=== PATIENT | female | born 1965 | race Caucasian/White ===

== ENCOUNTER → 2017-10-06 | Outpatient (CLI) | payer OTHER, SELFPAY | PROVIDERS: Visit Provider Internal Medicine | DX: I11.9 Hypertensive heart disease without heart failure (principal); E78.5 Hyperlipidemia, unspecified | CPT/HCPCS: 36415; 80061; 80076 ==

== ENCOUNTER → 2018-04-11 08:48 | Outpatient (CLI) | payer OTHER, SELFPAY ==
[2018-04-11 13:56] LABS: Alanine Aminotransferase 19 U/L (12-78); Albumin Level 3.3 gm/dL (3.4-5.0); Alkaline Phosphatase 84 U/L (46-116); Aspartate Amino Transferase 13 U/L (15-37); Bilirubin,Direct 0.1 mg/dL (0.0-0.2); Bilirubin,Indirect 0.2 mg/dL (0.0-0.9); Bilirubin,Total 0.3 mg/dL (0.2-1.0); Chol/HDL Ratio 3.3 (1-3.5); Cholesterol 131 mg/dL (140-200); HDL Cholesterol 40 mg/dL (29-89); LDL Cholesterol 76 mg/dL (0-130); Total Protein,Serum 6.2 gm/dL (6.4-8.2); Triglycerides 73 mg/dL (30-200); VLDL Cholesterol 15 mg/dL (0-40)
== END ==
PROVIDERS: Visit Provider Internal Medicine
DX: I25.10 Atherosclerotic heart disease of native coronary artery without angina pectoris (principal); I10 Essential (primary) hypertension; E78.5 Hyperlipidemia, unspecified; Z72.0 Tobacco use
CPT/HCPCS: 36415; 80061; 80076

== ENCOUNTER → 2018-06-20 09:43 | Outpatient (CLI) | payer OTHER, SELFPAY ==
[2018-06-20 09:59] LABS: Adenovirus,PCR Not Detected (NotDetected); Bordetella Pertussis Not Detected (NotDetected); Chlamydophila Pneumoniae, PCR Not Detected (NotDetected); Coronavirus 229E Not Detected (NotDetected); Coronavirus NL63 Not Detected (NotDetected); Coronavirus OC43 Not Detected (NotDetected); Coronovirus HKU1,PCR Not Detected (NotDetected); Human Metapneumovirus Not Detected (NotDetected); Influenza A, PCR Not Detected (NotDetected); Influenza AH1, 2009 Not Detected (NotDetected); Influenza AH1, PCR Not Detected (NotDetected); Influenza AH3,PCR Not Detected (NotDetected); Influenza B, PCR Not Detected (NotDetected); Mycoplasma Pneumoniae, PCR Not Detected (NotDected); Parainfluenza 1, PCR Not Detected (NotDetected); Parainfluenza 2, PCR Not Detected (NotDetected); Parainfluenza 3, PCR Not Detected (NotDetected); Parainfluenza 4, PCR Not Detected (NotDetected); Respiratory Syncytial Virus Not Detected (NotDetected); Rhinovirus/Enterovirus Not Detected (NotDetected)
--- NOTE | 2018-06-20 10:15 | XR_ITS ---
XR chest 2V HISTORY: ITS.REASON: ACUTE BRONCHITIS ORDERING PHYSICIAN: Gracie Nweman PATIENT AGE: 53 years COMPARISON: 12/28/2015 FINDINGS: The cardiomediastinal silhouette and pulmonary vascularity are within normal limits. Coronary artery stent is present . There is some hyperinflation with attenuation of the peripheral pulmonary vessels suggesting small airway disease such as bronchitis asthma or COPD. The lungs are clear without infiltrates, suspicious nodules, or pleural effusions. No acute bony abnormalities. IMPRESSION: 1. No acute infiltrate. 2. Possible small airway disease
[2018-06-20 10:25] LABS: Basophils # 0.1 K/mm3 (0-0.2); Basophils % 0.5 % (0.1-2.0); Eosinophils # 0.1 K/mm3 (0.0-0.4); Eosinophils % 0.8 % (0.1-12.0); Hematocrit 38.2 % (37.0-47.0); Lymphocytes # 2.1 K/mm3 (0.7-4.5); Mean Corpuscular Hemoglobin 32.2 pg (27.0-31.2); Mean Corpuscular Volume 94.5 fl (81-99); Monocytes # 0.5 K/mm3 (0.1-1.0); Neutrophils % 76.7 % (37.0-80.0); Platelet Count 189 K/mm3 (142-424); Red Blood Count 4.04 M/mm3 (4.20-5.40); Red Cell Distribution Width 13.4 % (11.5-17.5); White Blood Count 11.7 K/mm3 (4.8-10.8)
[2018-06-20 10:40] LABS: Hemoglobin A1C 5.8 % (0.0-7.0)
[2018-06-20 11:02] LABS: Alanine Aminotransferase 18 U/L (12-78); Albumin Level 3.5 gm/dL (3.4-5.0); Albumin/Globulin Ratio 1.1 (1.1-1.8); Alkaline Phosphatase 87 U/L (46-116); Anion Gap 12.9 mEq/L (5-15); Aspartate Amino Transferase 10 U/L (15-37); Bilirubin,Total 0.7 mg/dL (0.2-1.0); Blood Urea Nitrogen 16 mg/dL (7-18); Carbon Dioxide 27 mmol/L (21.0-32.0); Chloride 104 mmol/L (98-107); Creatinine,Serum 1.24 mg/dL (0.55-1.02); Estimated Glomerular Filt Rate 45 ml/min (>60); GFR (African American) 55 ML/MIN (>60); Globulin 3.1 gm/dl (1.3-3.2); Glucose 99 mg/dL (74-106); Potassium 3.9 mmoL/L (3.5-5.1); Sodium 140 mmol/L (136-145); Thyroid Stimulating Hormone 0.46 uIU/ml (0.358-3.740); Total Protein,Serum 6.6 gm/dL (6.4-8.2)
[2018-06-20 11:12] LABS: D-Dimer 758 ng/mL (0-400)
[2018-06-20 12:08] LABS: Chol/HDL Ratio 3.3 (1-3.5); Cholesterol 130 mg/dL (140-200); HDL Cholesterol 40 mg/dL (29-89); LDL Cholesterol 68 mg/dL (0-130); Triglycerides 111 mg/dL (30-200); VLDL Cholesterol 22 mg/dL (0-40)
[2018-06-21 12:42] LABS: Vitamin B12 348 pg/mL (232-1245)
[2018-06-22 07:37] LABS: EBV Ab VCA, IgG >600.0 U/mL (0.0-17.9); EBV Ab VCA, IgM <36.0 U/mL (0.0-35.9); EBV Nuclear Antigen Ab, IgG 24.6 U/mL (0.0-17.9); Epstein-Barr Virus Early Ag Ab 13.4 U/mL (0.0-8.9)
== END ==
PROVIDERS: PCP Physician Assistant; Visit Provider Nurse Practitioner Family
DX: R05 Cough (principal); J20.9 Acute bronchitis, unspecified; R53.83 Other fatigue; I25.10 Atherosclerotic heart disease of native coronary artery without angina pectoris
CPT/HCPCS: 36415; 71046; 80053; 80061; 82607; 83036; 83880; 83930; 84443; 84588; 85025; 85378; 86663; 86664; 86665; 87486; 87581; 87633; 87798

== ENCOUNTER → 2018-06-21 08:53 | Outpatient (CLI) | payer OTHER, SELFPAY ==
[2018-06-21 13:38] LABS: Occult Blood,Stool Negative (Negative)
[2018-06-23 07:04] LABS: C difficile Toxins AB, EIA Negative (Negative)
== END ==
LOC: LAB 08:54 → LAB.CARL 10:22
PROVIDERS: PCP Nurse Practitioner Family; Visit Provider Nurse Practitioner Family
DX: R19.7 Diarrhea, unspecified (principal)
CPT/HCPCS: 82272; 87045; 87177; 87205; 87324; G0328

== ENCOUNTER 2018-06-24 14:16 | Inpatient (IN) ==
[2018-06-24 14:37] LABS: Basophils % 0.4 % (0.1-2.0); Eosinophils % 0.4 % (0.1-12.0); Hematocrit 35.8 % (37.0-47.0); Hemoglobin 13.5 g/dL (12.2-16.2); Lymphocytes % 9.7 K/mm3 (10-50); Mean Corpuscular HGB Conc 37.7 g/dL (31.8-35.4); Mean Corpuscular Hemoglobin 34.8 pg (27.0-31.2); Mean Corpuscular Volume 92.3 fl (81-99); Mean Platelet Volume 10.4 fl (7.4-10.4); Monocytes # 0.6 K/mm3 (0.1-1.0); Monocytes % 5.7 % (1.7-9.3); Neutrophils % 83.9 % (37.0-80.0); Platelet Count 161 K/mm3 (142-424); Red Blood Count 3.87 M/mm3 (4.20-5.40); Red Cell Distribution Width 13.2 % (11.5-17.5); White Blood Count 10.8 K/mm3 (4.8-10.8)
[2018-06-24 14:51] LABS: Alanine Aminotransferase 16 U/L (12-78); Albumin Level 3.1 gm/dL (3.4-5.0); Albumin/Globulin Ratio 0.8 (1.1-1.8); Alkaline Phosphatase 73 U/L (46-116); Anion Gap 15.4 mEq/L (5-15); Aspartate Amino Transferase 12 U/L (15-37); Bilirubin,Total 0.4 mg/dL (0.2-1.0); Blood Urea Nitrogen 42 mg/dL (7-18); Calcium 8.4 mg/dL (8.5-10.1); Carbon Dioxide 25 mmol/L (21.0-32.0); Chloride 97 mmol/L (98-107); Glucose 102 mg/dL (74-106); Sodium 135 mmol/L (136-145); Total Protein,Serum 7.1 gm/dL (6.4-8.2)
[2018-06-24 14:55] LABS: Potassium 2.4 mmoL/L (3.5-5.1)
[2018-06-24 15:02] LABS: Creatine Kinase 47 U/L (26-192)
[2018-06-24 15:09] LABS: Microscopic, Urine URINE MICROSCOPIC (MICROSCOPIC)
[2018-06-24 15:13] LABS: Appearance,Urine CLEAR (Clear); Blood, Urine TRACE-L (Negative); Color,Urine YELLOW (Yellow); Glucose,Urine (UA) Negative (Negative); Ketones,Urine Negative (Negative); Leukocyte Esterase,Urine Negative (Negative); Protein,Urine Negative (Negative); Specific Gravity, Urine >= 1.030 (1.005-1.030); Urobilinogen,Urine 0.2 EU/dl (0.2)
[2018-06-24 15:19] LABS: Bilirubin,Urine Negative (Negative)
[2018-06-24 15:34] LABS: Amorphous Sediment,Urine 2+ /lpf; Bacteria,Urine 3+ /lpf
--- NOTE | 2018-06-24 17:44 | Emergency Department Note ---
ED Disposition Clinical Impression: Hypokalemia Acute renal failure Qualifiers: Acute renal failure type: unspecified Qualified Code(s): N17.9 - Acute kidney failure, unspecified Disposition: Admitted As Inpatient Condition on Discharge: Fair Time of Disposition: 17:45 - Critical Care Critical Care Time: No Attestation: On 06/24/18, the high probability of a clinically significant, sudden or life threatening deterioration of the following system(s) required my full and direct attention, intervention and personal management. The time I documented below is in addition to time spent performing reported procedures but includes the following listed in this critical care notation. Medical Decision Making - Medical Records Medical records reviewed: Yes: I reviewed the patient's medical records. - Ramiro Inquiry Pt receiving controlled substance: No Ramiro was queried for this patient: No Vital Signs: 06/24/18 14:23 06/24/18 14:26 06/24/18 14:31 Temperature 99.5 F Temperature Source Oral Pulse Rate [Left Radial] 67 Respiratory Rate 16 Blood Pressure [Right Arm] 79/47 81/53 82/48 Blood Pressure Mean [Right Arm] 57 62 59 Blood Pressure Source [Right Arm] Automatic Cuff Blood Pressure Position [Right Arm] Sitting 02 Sat by Pulse Oximetry 94 L Oxygen Delivery Method Room Air Oxygen Flow Rate (LPM) 06/24/18 14:38 06/24/18 14:48 06/24/18 15:06 Temperature Temperature Source Pulse Rate [Left Radial] 66 64 Respiratory Rate 18 Blood Pressure [Right Arm] 86/53 95/35 95/35 Blood Pressure Mean [Right Arm] 64 55 55 Blood Pressure Source [Right Arm] Automatic Cuff Automatic Cuff Blood Pressure Position [Right Arm] Sitting Sitting Sitting 02 Sat by Pulse Oximetry 92 L Oxygen Delivery Method Nasal Cannula Oxygen Flow Rate (LPM) 06/24/18 15:24 06/24/18 15:30 06/24/18 16:00 Temperature Temperature Source Pulse Rate [Left Radial] 66 63 Respiratory Rate 18 20 Blood Pressure [Right Arm] 113/50 105/52 83/45 Blood Pressure Mean [Right Arm] 71 69 57 Blood Pressure Source [Right Arm] Automatic Cuff Automatic Cuff Automatic Cuff Blood Pressure Position [Right Arm] Sitting Sitting Sitting 02 Sat by Pulse Oximetry 100 100 Oxygen Delivery Method Nasal Cannula Nasal Cannula Oxygen Flow Rate (LPM) 3 06/24/18 16:25 06/24/18 16:30 06/24/18 16:58 Temperature Temperature Source Pulse Rate [Left Radial] 71 67 Respiratory Rate 19 Blood Pressure [Right Arm] 94/52 81/40 100/53 Blood Pressure Mean [Right Arm] 66 53 68 Blood Pressure Source [Right Arm] Automatic Cuff Automatic Cuff Blood Pressure Position [Right Arm] Supine Sitting 02 Sat by Pulse Oximetry 100 100 Oxygen Delivery Method Room Air Nasal Cannula Oxygen Flow Rate (LPM) 3 - Lab Data Lab results reviewed: Yes: I reviewed the patient's lab results. Lab Results 06/24/18 14:22: WBC 10.8, RBC 3.87 L, Hgb 13.5, Hct 35.8 L, MCV 92.3, MCH 34.8 H , MCHC 37.7 H, RDW 13.2, Plt Count 161, MPV 10.4, Neut % (Auto) 83.9 H, Lymph % (Auto) 9.7 L, [place] % (Auto) 5.7, Eos % (Auto) 0.4, Baso % (Auto) 0.4, Neut # (Auto) 9.0 H, Lymph # (Auto) 1.0, [place] # (Auto) 0.6, Eos # (Auto) 0.0, Baso # (Auto) 0.0 06/24/18 14:22: Sodium 135 L, Potassium 2.4 L*, Chloride 97 L, Carbon Dioxide 25, Anion Gap 15.4 H, BUN 42 H, Creatinine 4.02 H, Estimated Creat Clear 19, Estimated GFR 12 L*, Est GFR ( Amer) 14 L*, Glucose 102, Calcium 8.4 L, Total Bilirubin 0.4, AST 12 L, ALT 16, Alkaline Phosphatase 73, Troponin I < 0.02, Total Protein 7.1, Albumin 3.1 L, Globulin 4.0 H, Albumin/Globulin Ratio 0.8 L 06/24/18 14:22: Lactate 1.5 06/24/18 14:22: Total Creatine Kinase 47, CK-MB (CK-2) 0.7, CK-MB (CK-2) Rel Index 1.5, Troponin I < 0.02 06/24/18 15:01: Urine Color Yellow, Urine Appearance Clear, Urine pH 5.0, Ur Specific [place] >= 1.030, Urine Protein Negative, Urine Glucose (UA) Negative, Urine Ketones Negative, Urine Blood Trace-l, Urine Nitrate Negative, Urine Bilirubin Negative, Urine Urobilinogen 0.2, Ur Leukocyte Esterase Negative, Urine RBC None, Urine WBC 3-5, Ur Squamous Epith Cells 3-5, Amorphous Sediment 2+, Urine Bacteria 3+, Hyaline Casts 10-20 Result diagrams: 06/24/18 14:22 06/24/18 14:22 Orders (Tests/Meds): ED MEDICATIONS Discontinued Medications Generic Name Dose Route Start Last Admin Trade Name Freq PRN Reason Stop Dose Admin Sodium Chloride 1,000 mls @ 999 mls/hr 06/24/18 14:30 06/24/18 14:27 Sod Chlor 0.9% 1000ml Bag IV 06/24/18 15:30 999 mls/hr .Q1H1M SYLVIA Administration Sodium Chloride 1,000 mls @ 999 mls/hr 06/24/18 15:00 06/24/18 15:08 Sod Chlor 0.9% 1000ml Bag IV 06/24/18 16:00 999 mls/hr .Q1H1M SYLVIA Administration Potassium Chloride/Water 100 mls @ 50 mls/hr 06/24/18 15:17 06/24/18 15:30 Potassium Chloride 20meq/100ml Ivpb IV 06/24/18 17:16 50 mls/hr ONCE ONE Administration Sodium Chloride 1,000 mls @ 999 mls/hr 06/24/18 16:30 06/24/18 16:26 Sod Chlor 0.9% 1000ml Bag IV 06/24/18 17:30 999 mls/hr .Q1H1M SYLVIA Administration Potassium Chloride 40 meq 06/24/18 15:17 06/24/18 15:30 Klor-Con 20meq Tablet PO 06/24/18 15:18 40 meq ONCE ONE Administration ORDERS Category Date Time Status Urinalysis and Microscopic Stat Lab 06/24/18 15:01 Ordered Blood Culture Stat Micro 06/24/18 14:22 Received Urine Culture Stat Micro 06/24/18 15:01 Received - Radiology Data #1 Image(s): Chest Image Reviewed: Yes I reviewed the patient's radiology results, Yes I reviewed the patient's radiology image, Yes I discussed the image results w/the radiologist, Yes I have reviewed radiologist's interpretation, Yes I reviewed the patient's radiology image w/the ED provider Preliminary Findings: Normal/NAD Weakness HPI - General Chief complaint: PAIN Stated complaint: hypotension Time Seen by Provider: 06/24/18 15:00 Mode of Arrival: EMS Limitations: No Limitations Description of Symptoms (Recalled from ER Triage Doc. by RN): to ed per squad w ith c/o generalized weakness, dizziness lower abd pain x several days pt states seen in ed tuesday for abnormal lab value. +nausea, states has not voided in 2 days. cpta none - History of Present Illness HPI Narrative: Patient was brought to the emergency room by ambulance with complaints of generalized weakness since that she had not urinated since yesterday she was seen in the emergency room on Tuesday for weakness and was sent back home on some antibiotics MD Complaint: generalized weakness Onset (ago): day(s) Duration: constant Location: generalized - Related Data Home Medications Medication Instructions Recorded Confirmed aspirin 81 mg tablet,delayed 81 mg PO QDAY 10/11/17 06/24/18 release lisinopril 40 mg tablet 40 mg PO QDAY 10/11/17 06/24/18 Atorvastatin Calcium [Lipitor 80mg 80 mg PO QDAY 06/20/18 06/24/18 Tablet] Carvedilol [Carvedilol 6.25mg Tab] 6.25 mg PO DAILY 06/20/18 06/24/18 Clopidogrel Bisulfate [Plavix 75mg 75 mg PO QDAY 06/20/18 06/24/18 Tab] hydroCHLOROthiazide [HCTZ 12.5mg 12.5 mg PO DAILY 06/20/18 06/24/18 capsule] Allergies Allergy/AdvReac Type Severity Reaction Status Date / Time No Known Allergies Allergy Verified 06/20/18 12:57 [facility] History I have reviewed the patient's past medical history: Yes Medical History: Reports:: Hypertension Laterality Cases: Bilateral: Tonsillectomy Amputation: No Fractures: No - Social History Smoking Status: Current every day smoker Tobacco Type: cigarettes # Packs/Day (cigarettes): 1 #Yrs smoked (if former smoker): 25 Alcohol Intake: never Alcohol Intake Frequency:: other Substance Use Type: denies use - Psychiatric History Expresses thoughts of harming self/others: None Suicide Plan Description: No Plan Family Hx:: Diabetes Comment: Brother - Myocardial infraction. Maternal Grandmother - CHF ROS Obtained: Yes All systems reviewed & no additional complaints Physical Exam - General General appearance: alert, in no apparent distress - Head Head exam: atraumatic - Eye Eye exam: Present: normal appearance - ENT ENT exam: Present: mucous membranes dry - Neck Neck exam: Present: normal inspection - Chest Chest inspection: Present: normal inspection - Respiratory Respiratory exam: Present: normal lung sounds bilaterally - Cardiovascular Cardiovascular exam: Present: regular rate - Abdominal Exam Abdominal exam: Present: soft - Neurological Exam Neurological exam: Present: alert, oriented X3 - Psychiatric Psychiatric exam: Present: normal affect
--- NOTE | 2018-06-24 20:36 | History & Physical Report ---
*Admission Date: 06/24/18 *Chief complaint: Weakness, renal failure *History of present illness: This 53-year-old white female was admitted from the emergency room due to lab indicating renal failure. She states that she has been ill for 3 weeks. She started with flu-like respiratory symptoms. She has also had evidence of urinary tract infection. She states that she has been on 4 different antibiotics in the past 3 weeks. She is not able to name her antibiotics. The antibiotics were prescribed to the [facility] and the prescriptions were filled at [facility]. She was seen in the emergency room at [facility] Tuesday. Apparently this visit was precipitated by an abnormal d-dimer that was obtained as an outpatient. A CT scan was performed Tuesday and was negative. She has not had a previous renal history. She states that she has felt sleepy for the past 2 days. She has had multiple episodes of diarrhea. She has not run a fever during the time that she has been ill. She initially had cough and congestion, leading to the diagnosis of bronchitis, but currently does not have significant respiratory symptoms. That she has not urinated in the past 2 days until the Darnell catheter was placed in the emergency room. She does have a history of coronary artery disease and has had 3 stents placed. Her initial stent placement was by Dr. Nowak. Subsequently she has seen Dr. Ventura and visits with him every 6 months. He has been hypertensive for about 5 years she states. She is a smoker. [facility] History Medical History: Reports:: Atherosclerotic Heart Disease, Coronary Artery Disease (3 stents), Hypertension, Urinary Tract Infection Denies:: Cancer, Diabetes Mellitus Type 1, Diabetes Mellitus Type 2, Internal Pacemaker, MRSA, Renal Disease, Renal Insufficiency Other Medical History: Denies: Hypothyroidism Laterality Cases: Bilateral: Tonsillectomy Other Surgeries: Yes: Angioplasty, Coronary Stent. No: Pacemaker Amputation: No Fractures: No - *Social History Educational Level: Completed High School Smoking Status: Current every day smoker Tobacco Type: cigarettes # Packs/Day (cigarettes): 1 (1/2 to 1) #Yrs smoked (if former smoker): 25 Alcohol Intake: never Alcohol Intake Frequency:: other Substance Use Type: denies use Occupational Status: employed Housing: house - Psychiatric History Expresses thoughts of harming self/others: None Suicide Plan Description: No Plan Comment: He has a dog and some cats. *Family Hx:: Diabetes Review of Systems - Constitutional Reports malaise, Reports weakness, Denies body ache(s), Denies chills, Denies fever(s), Denies night sweats - Eyes Denies blurry vision - ENT Denies abnormal hearing, Denies headache(s), Denies throat swelling - *Cardiovascular Denies chest pain, Denies rapid, pounding, or irregular heartbeat - *Respiratory Reports chest congestion, Reports cough Comments: Initial symptoms were like bronchitis. - *Gastrointestinal Reports change in bowel habits, Reports loose stools - *Genitourinary Denies abnormal vaginal bleeding - *Musculoskeletal Denies joint pain - Integumentary/Breasts Denies rash - *Neurologic Reports weakness, Denies fainting - Endocrine Denies excessive sweating - Hematologic/Lymphatic Denies easy bleeding - Allergic/Immunologic Denies throat swelling Meds Home Medications Medication Instructions Recorded Confirmed Type aspirin 81 mg tablet,delayed 81 mg PO QDAY 10/11/17 06/24/18 History release lisinopril 40 mg tablet 40 mg PO QDAY 10/11/17 06/24/18 History Atorvastatin Calcium [Lipitor 80mg 80 mg PO QDAY 06/20/18 06/24/18 History Tablet] Carvedilol [Carvedilol 6.25mg Tab] 6.25 mg PO DAILY 06/20/18 06/24/18 History Clopidogrel Bisulfate [Plavix 75mg 75 mg PO QDAY 06/20/18 06/24/18 History Tab] hydroCHLOROthiazide [HCTZ 12.5mg 12.5 mg PO DAILY 06/20/18 06/24/18 History capsule] Allergies Allergy/AdvReac Type Severity Reaction Status Date / Time No Known Allergies Allergy Verified 06/20/18 12:57 Exam Vital signs and Labs for Last 24 Hours: Temp Pulse Resp BP Pulse Ox 98.9 F 60 17 96/53 100 06/24/18 18:02 06/24/18 18:02 06/24/18 18:02 06/24/18 18:02 06/24/18 19:02 Laboratory Results - last 24 hr 06/24/18 14:22: WBC 10.8, RBC 3.87 L, Hgb 13.5, Hct 35.8 L, MCV 92.3, MCH 34.8 H , MCHC 37.7 H, RDW 13.2, Plt Count 161, MPV 10.4, Neut % (Auto) 83.9 H, Lymph % (Auto) 9.7 L, [place] % (Auto) 5.7, Eos % (Auto) 0.4, Baso % (Auto) 0.4, Neut # (Auto) 9.0 H, Lymph # (Auto) 1.0, [place] # (Auto) 0.6, Eos # (Auto) 0.0, Baso # (Auto) 0.0 06/24/18 14:22: Sodium 135 L, Potassium 2.4 L*, Chloride 97 L, Carbon Dioxide 25, Anion Gap 15.4 H, BUN 42 H, Creatinine 4.02 H, Estimated Creat Clear 19, Estimated GFR 12 L*, Est GFR ( Amer) 14 L*, Glucose 102, Calcium 8.4 L, Total Bilirubin 0.4, AST 12 L, ALT 16, Alkaline Phosphatase 73, Troponin I < 0.02, Total Protein 7.1, Albumin 3.1 L, Globulin 4.0 H, Albumin/Globulin Ratio 0.8 L 06/24/18 14:22: Lactate 1.5 06/24/18 14:22: Total Creatine Kinase 47, CK-MB (CK-2) 0.7, CK-MB (CK-2) Rel Index 1.5, Troponin I < 0.02 06/24/18 15:01: Urine Color Yellow, Urine Appearance Clear, Urine pH 5.0, Ur Specific [place] >= 1.030, Urine Protein Negative, Urine Glucose (UA) Negative, Urine Ketones Negative, Urine Blood Trace-l, Urine Nitrate Negative, Urine Bilirubin Negative, Urine Urobilinogen 0.2, Ur Leukocyte Esterase Negative, Urine RBC None, Urine WBC 3-5, Ur Squamous Epith Cells 3-5, Amorphous Sediment 2+, Urine Bacteria 3+, Hyaline Casts 10-20 I & O for Last 24 hours: Intake & Output 06/22/18 06/23/18 06/24/18 06/25/18 11:59 11:59 11:59 11:59 Weight 166 lb 7.008 oz - Constitutional no acute distress - *Routine HEENT Exam Head: Present: normocephalic. Absent: facial swelling Eye: Present: PERRL. Absent: exophthalmos ENT: Present: mucous membranes moist, nares patent - *Routine Neck Exam Comments: Perhaps some enlargement of the thyroid. Do not hear carotid bruits. - Routine Chest/Breast/Axilla Exam Chest wall: Absent: tenderness, mass - *Routine Respiratory Exam Present: decreased breath sounds, CTA bilaterally. Absent: rales, wheezes - *Routine Cardiovascular Exam Present: RRR, S4 - *Routine Abdominal Exam Present: soft. Absent: tenderness, distended - *Routine Rectal Exam Comments: Not done - *Routine Exam Comments: Darnell catheter in place. Draining yellow urine which is clear - *Routine Extremities Exam Absent: edema Comments: Tattoo noticed of the left calf - Routine Back/Spine/Pelvis Exam Back/Spine: Absent: CVA tenderness Comments: Tattoo of the lumbosacral area - *Routine Skin Exam Comments: Tattoo of the right lower abdomen - *Routine Neurological Exam Present: alert, oriented X3, moving all extremities, hearing grossly intact, normal speech. Absent: nystagmus, fasciculations, tremors - Routine Psychiatric Exam Present: normal affect, normal thought process Assessment and Plan (1) UTI (urinary tract infection) Current visit: Yes Status: Acute Category: Medical Code(s): N39.0 - Urinary tract infection, site not specified (2) Acute renal failure Current visit: Yes Status: Acute Qualifiers: Acute renal failure type: unspecified Qualified Code(s): N17.9 - Acute kidney failure, unspecified Category: Medical Code(s): N17.9 - Acute kidney failure, unspecified (3) Hypokalemia Current visit: Yes Status: Acute Category: Medical Code(s): E87.6 - Hypokalemia (4) Acute bronchitis Current visit: No Status: Acute Qualifiers: Bronchitis organism: unspecified organism Qualified Code(s): J20.9 - Acute bronchitis, unspecified Category: Medical Code(s): J20.9 - Acute bronchitis, unspecified (5) CAD (coronary artery disease) Current visit: No Status: Chronic Qualifiers: Coronary Disease-Associated Artery/Lesion type: [place] artery [place] vs. transplanted heart: [place] heart Associated angina: without angina Qualified Code(s): I25.10 - Atherosclerotic heart disease of [place] coronary artery without angina pectoris Category: Medical Code(s): I25.10 - Atherosclerotic heart disease of [place] coronary artery without angina pectoris (6) HHD (hypertensive heart disease) Current visit: No Status: Chronic Qualifiers: Heart failure presence: without heart failure Qualified Code(s): I11.9 - Hypertensive heart disease without heart failure Category: Medical Code(s): I11.9 - Hypertensive heart disease without heart failure (7) HLD (hyperlipidemia) Current visit: No Status: Chronic Qualifiers: Hyperlipidemia type: other hyperlipidemia Qualified Code(s): E78.4 - Other hyperlipidemia Category: Medical Code(s): E78.5 - Hyperlipidemia, unspecified (8) Tobacco abuse Current visit: No Status: Chronic Category: Medical Code(s): Z72.0 - Tobacco use (9) Tobacco abuse counseling Current visit: No Status: Chronic Category: Medical Code(s): Z71.6 - Tobacco abuse counseling - Assessment and plan all Dx Assessment and Plan for all problems:: The patient's hydration seems improved already. The exact evolution of the renal failure is to be determined. Certainly infectious process could be the etiology. Could the CT scan have contributed? Multiple tests for infectious disease are ordered. At the outset fluid therapy and correction of the electrolytes is the main focus of treatment.
[2018-06-24 22:09] LABS: Anion Gap 13.9 mEq/L (5-15); Thyroid Stimulating Hormone 0.15 uIU/ml (0.358-3.740)
[2018-06-24 22:14] LABS: Potassium 2.9 mmoL/L (3.5-5.1)
[2018-06-25 07:08] LABS: Eosinophils # 0.1 K/mm3 (0.0-0.4); Hematocrit 32.5 % (37.0-47.0)
[2018-06-25 07:13] LABS: Basophils % 0.5 % (0.1-2.0); Eosinophils % 0.8 % (0.1-12.0); Lymphocytes # 0.8 K/mm3 (0.7-4.5); Lymphocytes % 13.4 K/mm3 (10-50); Mean Corpuscular HGB Conc 34.5 g/dL (31.8-35.4); Mean Corpuscular Hemoglobin 32.3 pg (27.0-31.2); Mean Corpuscular Volume 93.7 fl (81-99); Mean Platelet Volume 9.7 fl (7.4-10.4); Monocytes # 0.4 K/mm3 (0.1-1.0); Monocytes % 6.9 % (1.7-9.3); Neutrophils # 4.9 K/mm3 (1.8-7.8); Neutrophils % 78.5 % (37.0-80.0); Platelet Count 123 K/mm3 (142-424); Red Blood Count 3.46 M/mm3 (4.20-5.40); Red Cell Distribution Width 13.4 % (11.5-17.5); White Blood Count 6.2 K/mm3 (4.8-10.8)
[2018-06-25 07:14] LABS: Anion Gap 12.2 mEq/L (5-15); Calcium 7.6 mg/dL (8.5-10.1); Hemoglobin 11.2 g/dL (12.2-16.2); Potassium 3.2 mmoL/L (3.5-5.1)
--- NOTE | 2018-06-25 10:40 | Pharmacy Consult Notes ---
[facility] Pharmacy VTE Monitoring - Patient Demographics Admission date: 06/24/18 Report Date: 06/25/18 Time: 10:40 Allergies/Adverse Reactions: Patient Allergies No Known Allergies Allergy (Verified 06/20/18 12:57) Height: 1.63 m Weight: 75.495 kg Patient Problems: Current Active Problems Acute renal failure (Acute) Hypokalemia (Acute) UTI (urinary tract infection) (Acute) - VTE Risk Labs: VTE Related Lab Results Hgb 11.2 g/dL (12.2-16.2) L D 06/25/18 06:30 Hct 32.5 % (37.0-47.0) L 06/25/18 06:30 Plt Count 123 K/mm3 (142-424) L 06/25/18 06:30 BUN 34 mg/dL (7-18) H 06/25/18 06:30 Creatinine 1.63 mg/dL (0.55-1.02) H D 06/25/18 06:30 Estimated Creat Clear 48 mL/min (0-300) 06/25/18 06:30 Was VTE Risk Assessment Performed: Yes VTE Score: 2 VTE Risk Level: Very Low Risk - Prophylaxis VTE Prophylaxis Ordered?: Yes Types of VTE Prophylaxis: TEDS Knee High Location of Applied Device: Bilateral Lower Extremeties - VTE Diagnosis Confirmed Treatment or plan recommended: Continue Current Treatment
--- NOTE | 2018-06-25 10:50 | Progress Note ---
Internal Medicine - PN: Subj *Date: 06/25/18 *Time: 10:46 Interval history: She feels much better today and her numbers correspond with that. BUN and creatinine and potassium have all improved. Blood pressure is low normal. She is not receiving blood pressure medications at this point. We have removed the catheter this morning. Exam Vital signs and Labs for Last 24 Hours: Temp Pulse Resp BP Pulse Ox 97.1 F L 57 L 18 102/56 99 06/25/18 08:00 06/25/18 08:00 06/25/18 08:00 06/25/18 08:00 06/25/18 08:08 Laboratory Results - last 24 hr 06/24/18 14:22: WBC 10.8, RBC 3.87 L, Hgb 13.5, Hct 35.8 L, MCV 92.3, MCH 34.8 H , MCHC 37.7 H, RDW 13.2, Plt Count 161, MPV 10.4, Neut % (Auto) 83.9 H, Lymph % (Auto) 9.7 L, [place] % (Auto) 5.7, Eos % (Auto) 0.4, Baso % (Auto) 0.4, Neut # (Auto) 9.0 H, Lymph # (Auto) 1.0, [place] # (Auto) 0.6, Eos # (Auto) 0.0, Baso # (Auto) 0.0 06/24/18 14:22: Sodium 135 L, Potassium 2.4 L*, Chloride 97 L, Carbon Dioxide 25, Anion Gap 15.4 H, BUN 42 H, Creatinine 4.02 H, Estimated Creat Clear 19, Estimated GFR 12 L*, Est GFR ( Amer) 14 L*, Glucose 102, Calcium 8.4 L, Total Bilirubin 0.4, AST 12 L, ALT 16, Alkaline Phosphatase 73, Troponin I < 0.02, Total Protein 7.1, Albumin 3.1 L, Globulin 4.0 H, Albumin/Globulin Ratio 0.8 L 06/24/18 14:22: Lactate 1.5 06/24/18 14:22: Total Creatine Kinase 47, CK-MB (CK-2) 0.7, CK-MB (CK-2) Rel Index 1.5, Troponin I < 0.02 06/24/18 15:01: Urine Color Yellow, Urine Appearance Clear, Urine pH 5.0, Ur Specific [place] >= 1.030, Urine Protein Negative, Urine Glucose (UA) Negative, Urine Ketones Negative, Urine Blood Trace-l, Urine Nitrate Negative, Urine Bilirubin Negative, Urine Urobilinogen 0.2, Ur Leukocyte Esterase Negative, Urine RBC None, Urine WBC 3-5, Ur Squamous Epith Cells 3-5, Amorphous Sediment 2+, Urine Bacteria 3+, Hyaline Casts 10-20 06/24/18 20:45: Stl Aeromonas (PCR) Not detected, Stl C. cayetanensis PCR Not detected, Stool Rotavirus (PCR) Not detected, Stl Adenov F 40/41 PCR Not detected, Stool Astrovirus (PCR) Not detected, Stool Campylobacter PCR Not detected, Stl C.difficile Tox PCR Not detected, Stool Cryptosporidium PCR Not detected, Stl E.coli Shiga Tox PCR Not detected, Stool E coli O157 PCR Not detected, Stl Enterotoxigenic E PCR Not detected, Stool EPEC (PCR) Not detected, Stool EAEC (PCR) Not detected, Stl E. histolytica PCR Not detected, Stool Giardia Lamblia PCR Not detected, Stool Salmonella PCR Not detected, Stool Sapovirus (PCR) Not detected, Stl P. shigelloides PCR Not detected, Stl Shigella/EIEC PCR Not detected, St Y.enterocolitica PCR Not detected, Stool Vibrio (PCR) Not detected, Stl Vibrio cholerae PCR Not detected, Stl Norovirus GI/GII PCR Not detected 06/24/18 21:30: Sodium 141, Potassium 2.9 L* D, Chloride 108 H, Carbon Dioxide 22, Anion Gap 13.9, BUN 37 H, Creatinine 2.64 H D, Estimated Creat Clear 30, Estimated GFR 19 L*, Est GFR ( Amer) 23 L D, Glucose 115 H, Calcium 7.0 L D, TSH 0.15 L D 06/24/18 21:30: Monoscreen Negative 06/25/18 06:30: Sodium 141, Potassium 3.2 L, Chloride 109 H, Carbon Dioxide 23, Anion Gap 12.2, BUN 34 H, Creatinine 1.63 H D, Estimated Creat Clear 48, Estimated GFR 33 L, Est GFR ( Amer) 40 L D, Glucose 87 D, Calcium 7.6 L 06/25/18 06:30: WBC 6.2 D, RBC 3.46 L, Hgb 11.2 L D, Hct 32.5 L, MCV 93.7, MCH 32.3 H, MCHC 34.5, RDW 13.4, Plt Count 123 L, MPV 9.7, Neut % (Auto) 78.5, Lymph % (Auto) 13.4, [place] % (Auto) 6.9, Eos % (Auto) 0.8, Baso % (Auto) 0.5, Neut # (Auto) 4.9, Lymph # (Auto) 0.8, [place] # (Auto) 0.4, Eos # (Auto) 0.1, Baso # (Auto) 0.0 Laboratory Tests 06/24/18 06/24/18 06/24/18 14:22 14:22 21:30 WBC 10.8 Hgb 13.5 Hct 35.8 L Sodium 135 L 141 Potassium 2.4 L* 2.9 L* D BUN 42 H 37 H Creatinine 4.02 H 2.64 H D TSH 0.15 L D 06/25/18 06/25/18 06:30 06:30 WBC 6.2 D Hgb 11.2 L D Hct 32.5 L Sodium 141 Potassium 3.2 L BUN 34 H Creatinine 1.63 H D TSH I & O for Last 24 hours: Intake & Output 06/22/18 06/23/18 06/24/18 06/25/18 11:59 11:59 11:59 11:59 Intake Total 1460 / 1460 Output Total 900 / 900 Balance 560 / 560 Weight 166 lb 7.008 oz - Constitutional no acute distress - *Routine HEENT Exam Head: Present: normocephalic Eye: Present: PERRL ENT: Present: mucous membranes moist - *Routine Neck Exam Present: supple. Absent: lymphadenopathy - *Routine Respiratory Exam Present: CTA bilaterally - *Routine Cardiovascular Exam Present: RRR - *Routine Abdominal Exam Present: soft, normoactive bowel sounds. Absent: tenderness - *Routine Extremities Exam Absent: cyanosis, clubbing, edema Assessment and Plan (1) UTI (urinary tract infection) Current visit: Yes Status: Acute Category: Medical Code(s): N39.0 - Urinary tract infection, site not specified (2) Acute renal failure Current visit: Yes Status: Acute Qualifiers: Acute renal failure type: unspecified Qualified Code(s): N17.9 - Acute kidney failure, unspecified Category: Medical Code(s): N17.9 - Acute kidney failure, unspecified (3) Hypokalemia Current visit: Yes Status: Acute Category: Medical Code(s): E87.6 - Hypokalemia (4) Acute bronchitis Current visit: No Status: Acute Qualifiers: Bronchitis organism: unspecified organism Qualified Code(s): J20.9 - Acute bronchitis, unspecified Category: Medical Code(s): J20.9 - Acute bronchitis, unspecified (5) CAD (coronary artery disease) Current visit: No Status: Chronic Qualifiers: Coronary Disease-Associated Artery/Lesion type: [place] artery [place] vs. transplanted heart: [place] heart Associated angina: without angina Qualified Code(s): I25.10 - Atherosclerotic heart disease of [place] coronary artery without angina pectoris Category: Medical Code(s): I25.10 - Atherosclerotic heart disease of [place] coronary artery without angina pectoris (6) HHD (hypertensive heart disease) Current visit: No Status: Chronic Qualifiers: Heart failure presence: without heart failure Qualified Code(s): I11.9 - Hypertensive heart disease without heart failure Category: Medical Code(s): I11.9 - Hypertensive heart disease without heart failure (7) HLD (hyperlipidemia) Current visit: No Status: Chronic Qualifiers: Hyperlipidemia type: other hyperlipidemia Qualified Code(s): E78.4 - Other hyperlipidemia Category: Medical Code(s): E78.5 - Hyperlipidemia, unspecified (8) Tobacco abuse Current visit: No Status: Chronic Category: Medical Code(s): Z72.0 - Tobacco use (9) Tobacco abuse counseling Current visit: No Status: Chronic Category: Medical Code(s): Z71.6 - Tobacco abuse counseling - Assessment and plan all Dx Assessment and Plan for all problems:: Obviously she is responding to treatment. I am reluctant to institute another antibiotic since this could have been part of the problem with her renal function. We will recheck her urinalysis later on since the catheter just came out. IV fluids were not ordered from the emergency room thus she did not get continuous IV fluids during the night. Sodium chloride at 100 cc an hour is now ordered.
[2018-06-25 18:39] LABS: Appearance,Urine CLEAR (Clear); Bilirubin,Urine Negative (Negative); Blood, Urine 2+ (Negative); Color,Urine YELLOW (Yellow); Glucose,Urine (UA) Negative (Negative); Ketones,Urine Negative (Negative); Leukocyte Esterase,Urine Negative (Negative); Microscopic, Urine URINE MICROSCOPIC (MICROSCOPIC); Protein,Urine Negative (Negative); Specific Gravity, Urine <= 1.005 (1.005-1.030); Urobilinogen,Urine 0.2 EU/dl (0.2)
[2018-06-25 18:41] LABS: Amorphous Sediment,Urine Trace /lpf
[2018-06-26 06:49] LABS: Basophils % 0.4 % (0.1-2.0); Eosinophils # 0.1 K/mm3 (0.0-0.4); Eosinophils % 1.3 % (0.1-12.0); Hematocrit 30.1 % (37.0-47.0); Hemoglobin 10.3 g/dL (12.2-16.2); Lymphocytes # 1.4 K/mm3 (0.7-4.5); Lymphocytes % 24.5 K/mm3 (10-50); Mean Corpuscular HGB Conc 34.2 g/dL (31.8-35.4); Mean Corpuscular Hemoglobin 32.1 pg (27.0-31.2); Mean Platelet Volume 9.8 fl (7.4-10.4); Monocytes # 0.4 K/mm3 (0.1-1.0); Monocytes % 7.5 % (1.7-9.3); Neutrophils # 3.7 K/mm3 (1.8-7.8); Neutrophils % 66.1 % (37.0-80.0); Platelet Count 126 K/mm3 (142-424); Red Cell Distribution Width 13.3 % (11.5-17.5); White Blood Count 5.5 K/mm3 (4.8-10.8)
[2018-06-26 06:55] LABS: Calcium 7.7 mg/dL (8.5-10.1)
--- NOTE | 2018-06-26 09:17 | Progress Note ---
Internal Medicine - PN: Subj *Date: 06/26/18 *Time: 09:15 Interval history: She feels better and is much improved overall. Her numbers are better. Her potassium is 3 today compared to 3.2 yesterday but her renal function has improved dramatically. Clinically she is stable. Her diarrhea panel showed nothing Exam Vital signs and Labs for Last 24 Hours: Temp Pulse Resp BP Pulse Ox 98.3 F 54 L 18 91/51 98 06/26/18 08:00 06/26/18 08:00 06/26/18 08:00 06/26/18 08:00 06/26/18 08:00 Laboratory Results - last 24 hr 06/25/18 18:00: Urine Color Yellow, Urine Appearance Clear, Urine pH 6.0, Ur Specific [place] <= 1.005, Urine Protein Negative, Urine Glucose (UA) Negative, Urine Ketones Negative, Urine Blood 2+, Urine Nitrate Negative, Urine Bilirubin Negative, Urine Urobilinogen 0.2, Ur Leukocyte Esterase Negative, Urine RBC 3-5, Urine WBC 3-5, Ur Squamous Epith Cells 3-5, Amorphous Sediment Trace 06/26/18 06:27: WBC 5.5, RBC 3.20 L, Hgb 10.3 L, Hct 30.1 L, MCV 94.0, MCH 32.1 H, MCHC 34.2, RDW 13.3, Plt Count 126 L, MPV 9.8, Neut % (Auto) 66.1, Lymph % (Auto) 24.5, [place] % (Auto) 7.5, Eos % (Auto) 1.3, Baso % (Auto) 0.4, Neut # (Auto) 3.7, Lymph # (Auto) 1.4, [place] # (Auto) 0.4, Eos # (Auto) 0.1, Baso # (Auto) 0.0 06/26/18 06:27: Sodium 144, Potassium 3.0 L, Chloride 113 H, Carbon Dioxide 22, Anion Gap 12.0, BUN 19 H D, Creatinine 1.00 D, Estimated Creat Clear 78, Estimated GFR 58 L, Est GFR ( Amer) 70 D, Glucose 94, Calcium 7.7 L Laboratory Tests 06/24/18 06/24/18 06/25/18 14:22 21:30 06:30 Sodium 135 L 141 141 Potassium 2.4 L* 2.9 L* D 3.2 L Chloride 97 L 108 H 109 H BUN 42 H 37 H 34 H Creatinine 4.02 H 2.64 H D 1.63 H D Estimated GFR 12 L* 19 L* 33 L TSH 0.15 L D 06/26/18 06:27 Sodium 144 Potassium 3.0 L Chloride 113 H BUN 19 H D Creatinine 1.00 D Estimated GFR 58 L TSH I & O for Last 24 hours: Intake & Output 06/23/18 06/24/18 06/25/18 06/26/18 11:59 11:59 11:59 11:59 Intake Total 1460 / 1460 3400 / 3400 Output Total 900 / 900 1500 / 1500 Balance 560 / 560 1900 / 1900 Weight 166 lb 7.008 oz Microbiology Reports for the Last 24 Hours: Microbiology 06/24/18 15:01 Urine,Catheterized Urine Culture - Preliminary NO GROWTH AFTER 24 HOURS - Constitutional no acute distress - *Routine HEENT Exam Head: Present: normocephalic Eye: Present: PERRL ENT: Present: mucous membranes moist - *Routine Respiratory Exam Present: CTA bilaterally - *Routine Cardiovascular Exam Present: RRR - *Routine Abdominal Exam Present: soft. Absent: tenderness Assessment and Plan (1) UTI (urinary tract infection) Current visit: Yes Status: Acute Category: Medical Code(s): N39.0 - Urinary tract infection, site not specified (2) Acute renal failure Current visit: Yes Status: Acute Qualifiers: Acute renal failure type: unspecified Qualified Code(s): N17.9 - Acute kidney failure, unspecified Category: Medical Code(s): N17.9 - Acute kidney failure, unspecified (3) Hypokalemia Current visit: Yes Status: Acute Category: Medical Code(s): E87.6 - Hypokalemia (4) Acute bronchitis Current visit: No Status: Acute Qualifiers: Bronchitis organism: unspecified organism Qualified Code(s): J20.9 - Acute bronchitis, unspecified Category: Medical Code(s): J20.9 - Acute bronchitis, unspecified (5) CAD (coronary artery disease) Current visit: No Status: Chronic Qualifiers: Coronary Disease-Associated Artery/Lesion type: [place] artery [place] vs. transplanted heart: [place] heart Associated angina: without angina Qualified Code(s): I25.10 - Atherosclerotic heart disease of [place] coronary artery without angina pectoris Category: Medical Code(s): I25.10 - Atherosclerotic heart disease of [place] coronary artery without angina pectoris (6) HHD (hypertensive heart disease) Current visit: No Status: Chronic Qualifiers: Heart failure presence: without heart failure Qualified Code(s): I11.9 - Hypertensive heart disease without heart failure Category: Medical Code(s): I11.9 - Hypertensive heart disease without heart failure (7) HLD (hyperlipidemia) Current visit: No Status: Chronic Qualifiers: Hyperlipidemia type: other hyperlipidemia Qualified Code(s): E78.4 - Other hyperlipidemia Category: Medical Code(s): E78.5 - Hyperlipidemia, unspecified (8) Tobacco abuse Current visit: No Status: Chronic Category: Medical Code(s): Z72.0 - Tobacco use (9) Tobacco abuse counseling Current visit: No Status: Chronic Category: Medical Code(s): Z71.6 - Tobacco abuse counseling - Assessment and plan all Dx Assessment and Plan for all problems:: Continue present trip. We can send her home when her electrolytes are all within normal range.
[2018-06-27 06:47] LABS: Basophils % 0.4 % (0.1-2.0); Eosinophils # 0.1 K/mm3 (0.0-0.4); Eosinophils % 1.1 % (0.1-12.0); Hemoglobin 10.2 g/dL (12.2-16.2); Lymphocytes # 1.6 K/mm3 (0.7-4.5); Lymphocytes % 34.6 K/mm3 (10-50); Mean Corpuscular Hemoglobin 32.2 pg (27.0-31.2); Mean Corpuscular Volume 94.8 fl (81-99); Mean Platelet Volume 10.2 fl (7.4-10.4); Monocytes # 0.3 K/mm3 (0.1-1.0); Monocytes % 6.1 % (1.7-9.3); Neutrophils # 2.7 K/mm3 (1.8-7.8); Neutrophils % 57.7 % (37.0-80.0); Platelet Count 125 K/mm3 (142-424); Red Blood Count 3.16 M/mm3 (4.20-5.40); Red Cell Distribution Width 13.3 % (11.5-17.5); White Blood Count 4.6 K/mm3 (4.8-10.8)
[2018-06-27 06:55] LABS: Anion Gap 10.9 mEq/L (5-15); Calcium 7.6 mg/dL (8.5-10.1); Potassium 3.9 mmoL/L (3.5-5.1)
--- NOTE | 2018-06-27 09:11 | Progress Note ---
Internal Medicine - PN: Subj *Date: 06/27/18 *Time: 09:07 Interval history: The patient is doing well. She feels comfortable. She still has some loose stools which is common in her history. Certainly colitis is a consideration. Her electrolytes have normalized. Her BUN and creatinine are normal. She will be discharged today. Medications are reviewed. I will leave her off her diuretic for now. I will send her home on 20 mEq of potassium daily. She will not be on antibiotics at this point. It is recommended that she follow-up with her nurse practitioner in [place]. She needs to have colonoscopy. Exam Vital signs and Labs for Last 24 Hours: Temp Pulse Resp BP Pulse Ox 98.3 F 61 20 115/73 100 06/27/18 07:29 06/27/18 07:29 06/27/18 07:29 06/27/18 07:29 06/27/18 07:29 Laboratory Results - last 24 hr 06/27/18 06:30: WBC 4.6 L, RBC 3.16 L, Hgb 10.2 L, Hct 30.0 L, MCV 94.8, MCH 32.2 H, MCHC 34.0, RDW 13.3, Plt Count 125 L, MPV 10.2, Neut % (Auto) 57.7, Lymph % (Auto) 34.6, [place] % (Auto) 6.1, Eos % (Auto) 1.1, Baso % (Auto) 0.4, Neut # (Auto) 2.7, Lymph # (Auto) 1.6, [place] # (Auto) 0.3, Eos # (Auto) 0.1, Baso # (Auto) 0.0 06/27/18 06:30: Sodium 146 H, Potassium 3.9 D, Chloride 117 H, Carbon Dioxide 22, Anion Gap 10.9, BUN 16, Creatinine 0.81, Estimated Creat Clear 97, Estimated GFR 74, Est GFR ( Amer) 90 D, Glucose 84, Calcium 7.6 L I & O for Last 24 hours: Intake & Output 06/24/18 06/25/18 06/26/18 06/27/18 11:59 11:59 11:59 11:59 Intake Total 1460 / 1460 3400 / 3400 3305 / 3305 Output Total 900 / 900 1500 / 1500 3 / 3 Balance 560 / 560 1900 / 1900 3302 / 3302 Weight 166 lb 7.008 oz Microbiology Reports for the Last 24 Hours: Microbiology 06/24/18 15:01 Urine,Catheterized Urine Culture - Final NO GROWTH AFTER 48 HOURS 06/24/18 14:22 Blood Blood Culture - Preliminary NO GROWTH AFTER 48 HOURS 06/24/18 14:22 Blood Blood Culture - Preliminary NO GROWTH AFTER 48 HOURS - Constitutional no acute distress - *Routine HEENT Exam Head: Present: normocephalic Eye: Present: PERRL ENT: Present: mucous membranes moist - *Routine Neck Exam Present: supple. Absent: lymphadenopathy - *Routine Respiratory Exam Present: CTA bilaterally - *Routine Cardiovascular Exam Present: RRR - *Routine Abdominal Exam Present: soft, normoactive bowel sounds. Absent: tenderness - *Routine Rectal Exam Comments: There is an anterior hemorrhoidal tag but no active hemorrhoids. No lesions detected with digital exam. No stool present. - *Routine Extremities Exam Present: edema Comments: Minimal Assessment and Plan (1) UTI (urinary tract infection) Current visit: Yes Status: Acute Category: Medical Code(s): N39.0 - Urinary tract infection, site not specified (2) Acute renal failure Current visit: Yes Status: Acute Qualifiers: Acute renal failure type: unspecified Qualified Code(s): N17.9 - Acute kidney failure, unspecified Category: Medical Code(s): N17.9 - Acute kidney failure, unspecified (3) Hypokalemia Current visit: Yes Status: Acute Category: Medical Code(s): E87.6 - Hypokalemia (4) Acute bronchitis Current visit: No Status: Acute Qualifiers: Bronchitis organism: unspecified organism Qualified Code(s): J20.9 - Acute bronchitis, unspecified Category: Medical Code(s): J20.9 - Acute bronchitis, unspecified (5) CAD (coronary artery disease) Current visit: No Status: Chronic Qualifiers: Coronary Disease-Associated Artery/Lesion type: [place] artery [place] vs. transplanted heart: [place] heart Associated angina: without angina Qualified Code(s): I25.10 - Atherosclerotic heart disease of [place] coronary artery without angina pectoris Category: Medical Code(s): I25.10 - Atherosclerotic heart disease of [place] coronary artery without angina pectoris (6) HHD (hypertensive heart disease) Current visit: No Status: Chronic Qualifiers: Heart failure presence: without heart failure Qualified Code(s): I11.9 - Hypertensive heart disease without heart failure Category: Medical Code(s): I11.9 - Hypertensive heart disease without heart failure (7) HLD (hyperlipidemia) Current visit: No Status: Chronic Qualifiers: Hyperlipidemia type: other hyperlipidemia Qualified Code(s): E78.4 - Other hyperlipidemia Category: Medical Code(s): E78.5 - Hyperlipidemia, unspecified (8) Tobacco abuse Current visit: No Status: Chronic Category: Medical Code(s): Z72.0 - Tobacco use (9) Tobacco abuse counseling Current visit: No Status: Chronic Category: Medical Code(s): Z71.6 - Tobacco abuse counseling - Assessment and plan all Dx Assessment and Plan for all problems:: Discharge today. See medicine list.
[2018-06-27 14:19] LABS: Anti-Smith Antibody <0.2 AI (0.0-0.9)
--- NOTE | 2018-06-27 15:28 | Discharge Summary ---
General - General Admission date:: 06/24/18 Discharge date: 06/27/18 HPI HPI: This 53-year-old white female was admitted from the emergency room due to lab indicating renal failure. She states that she has been ill for 3 weeks. She started with flu-like respiratory symptoms. She has also had evidence of urinary tract infection. She states that she has been on 4 different antibiotics in the past 3 weeks. She is not able to name her antibiotics. [facility] and the prescriptions were filled at [facility]. She was seen in the emergency room at [facility] Tuesday. Apparently this visit was precipitated by an abnormal d-dimer that was obtained as an outpatient. A CT scan was performed Tuesday and was negative. She has not had a previous renal history. She states that she has felt sleepy for the past 2 days. She has had multiple episodes of diarrhea. She has not run a fever during the time that she has been ill. She initially had cough and congestion, leading to the diagnosis of bronchitis, but currently does not have significant respiratory symptoms. That she has not urinated in the past 2 days until the Darnell catheter was placed in the emergency room. She does have a history of coronary artery disease and has had 3 stents placed. Her initial stent placement was by Dr. Nowak. Subsequently she has seen Dr. Ventura and visits with him every 6 months. She has been hypertensive for about 5 years she states. She is a smoker. Hospital Course Hospital Course: The patient's hydration improved. The exact evolution of the renal failure was unclear. Certainly infectious process could have been the etiology, or the CT scan could have contributed? Multiple tests for infectious disease were ordered. IVF's were continued. Her electrolytes improved as did her renal function. Her diarrhea panel was negative. She was stable to be discharged. She will remain off of her diuretic and a rx was sent for potassium. Her blood and urine cx's were normal. She will need to f/u with her PCP and will likely need a c-scope. Objective Vital signs: Temp Pulse Resp BP Pulse Ox 98.3 F 61 20 115/73 100 06/27/18 07:29 06/27/18 07:29 06/27/18 07:29 06/27/18 07:29 06/27/18 07:29 Narrative: - Constitutional no acute distress - *Routine HEENT Exam Head: Present: normocephalic. Absent: facial swelling Eye: Present: PERRL. Absent: exophthalmos ENT: Present: mucous membranes moist, nares patent - *Routine Neck Exam Comments: Perhaps some enlargement of the thyroid. Do not hear carotid bruits. - Routine Chest/Breast/Axilla Exam Chest wall: Absent: tenderness, mass - *Routine Respiratory Exam Present: decreased breath sounds, CTA bilaterally. Absent: rales, wheezes - *Routine Cardiovascular Exam Present: RRR, S4 - *Routine Abdominal Exam Present: soft. Absent: tenderness, distended - *Routine Rectal Exam Comments: Not done - *Routine Exam Comments: Darnell catheter in place. Draining yellow urine which is clear - *Routine Extremities Exam Absent: edema Comments: Tattoo noticed of the left calf - Routine Back/Spine/Pelvis Exam Back/Spine: Absent: CVA tenderness Comments: Tattoo of the lumbosacral area - *Routine Skin Exam Comments: Tattoo of the right lower abdomen - *Routine Neurological Exam Present: alert, oriented X3, moving all extremities, hearing grossly intact, normal speech. Absent: nystagmus, fasciculations, tremors - Routine Psychiatric Exam Present: normal affect, normal thought process Results Labs on day of discharge: Labs from last 24 hours 06/27/18 06/27/18 06:30 06:30 WBC 4.6 L RBC 3.16 L Hgb 10.2 L Hct 30.0 L MCV 94.8 MCH 32.2 H MCHC 34.0 RDW 13.3 Plt Count 125 L MPV 10.2 Neut % (Auto) 57.7 Lymph % (Auto) 34.6 [place] % (Auto) 6.1 Eos % (Auto) 1.1 Baso % (Auto) 0.4 Neut # (Auto) 2.7 Lymph # (Auto) 1.6 [place] # (Auto) 0.3 Eos # (Auto) 0.1 Baso # (Auto) 0.0 Sodium 146 H Potassium 3.9 D Chloride 117 H Carbon Dioxide 22 Anion Gap 10.9 BUN 16 Creatinine 0.81 Estimated Creat Clear 97 Estimated GFR 74 Est GFR ( Amer) 90 D Glucose 84 Calcium 7.6 L Preliminary micro results at discharge 06/24/18 14:22 Blood Culture - Preliminary Blood NO GROWTH AFTER 48 HOURS 06/24/18 14:22 Blood Culture - Preliminary Blood NO GROWTH AFTER 48 HOURS DS: Diagnosis - Discharge Diagnosis (1) UTI (urinary tract infection) Status: Acute (2) Acute renal failure Status: Acute (3) Hypokalemia Status: Acute (4) Acute bronchitis Status: Acute (5) CAD (coronary artery disease) Status: Chronic (6) HHD (hypertensive heart disease) Status: Chronic (7) HLD (hyperlipidemia) Status: Chronic (8) Tobacco abuse Status: Chronic (9) Tobacco abuse counseling Status: Chronic Discharge Plan - Patient Discharge Instructions ACTIVITY: Continue current activity DIET: low fat, low cholesterol Patient Instructions: Urinary Tract Infection, Acute Renal Failure, Hypokalemia - Follow up Plan Follow up with: Gracie Newman [Primary Care Provider] - (The patient was told she should be seen in follow-up this week and probably arrangements should be made for colonoscopy.) Disposition: Home, Self-Shelter Medications: Home Medications Medication Instructions Recorded Confirmed Type Atorvastatin Calcium [Lipitor 80mg 80 mg PO DAILY 06/20/18 06/25/18 History Tablet] carvedilol 6.25 mg tablet 6.25 mg PO BID tab 06/27/18 History Prescriptions/Medication Reconciliation: New Potassium Chloride [K-Tab ER 20 mEq] 20 meq PO DAILY #30 tab Lisinopril [Lisinopril 20mg Tab] 20 mg PO DAILY #30 tab Continue Atorvastatin Calcium [Lipitor 80mg Tablet] 80 mg PO DAILY Discontinued aspirin 81 mg tablet,delayed release 81 mg PO DAILY lisinopril 40 mg tablet 40 mg PO DAILY #30 tab hydroCHLOROthiazide [HCTZ 12.5mg capsule] 12.5 mg PO DAILY metroNIDAZOLE [metroNIDAZOLE 500mg Tablet] 500 mg PO TID Ciprofloxacin HCl [Cipro 500mg Tab] 500 mg PO BID No Action carvedilol 6.25 mg tablet 6.25 mg PO BID tab clopidogrel 75 mg tablet 75 mg PO DAILY #90 tab
== END 2018-06-27 10:56 | disposition home or self-care (01) ==
LOC: ER 14:16 → 2ND 17:12
PROVIDERS: ADMIT Family Medicine; ATTEND Family Medicine

== ENCOUNTER → 2018-10-26 07:10 | Outpatient (CLI) | payer OTHER, SELFPAY ==
[2018-10-26 14:17] LABS: Anion Gap 15.3 mEq/L (5-15); Blood Urea Nitrogen 13 mg/dL (7-18); Calcium 9.2 mg/dL (8.5-10.1); Carbon Dioxide 27 mmol/L (21.0-32.0); Chloride 104 mmol/L (98-107); Creatinine,Serum 0.94 mg/dL (0.55-1.02); Estimated Glomerular Filt Rate 63 ml/min (>60); GFR (African American) 76 ML/MIN (>60); Glucose 86 mg/dL (74-106); Potassium 4.3 mmoL/L (3.5-5.1); Sodium 142 mmol/L (136-145)
== END ==
PROVIDERS: PCP Family Medicine; Visit Provider Nurse Practitioner Family
DX: I25.10 Atherosclerotic heart disease of native coronary artery without angina pectoris (principal); I11.9 Hypertensive heart disease without heart failure; E78.5 Hyperlipidemia, unspecified
CPT/HCPCS: 36415; 80048

== ENCOUNTER → 2019-06-08 07:09 | Outpatient (CLI) | payer OTHER, SELFPAY ==
[2019-06-08 14:17] LABS: Alanine Aminotransferase 16 U/L (12-78); Albumin Level 3.4 gm/dL (3.4-5.0); Alkaline Phosphatase 89 U/L (46-116); Aspartate Amino Transferase 14 U/L (15-37); Bilirubin,Direct 0.1 mg/dL (0.0-0.2); Bilirubin,Indirect 0.2 mg/dL (0.0-0.9); Bilirubin,Total 0.3 mg/dL (0.2-1.0); Chol/HDL Ratio 3.4 (1-3.5); Cholesterol 151 mg/dL (140-200); Free T4 (Free Thyroxine) 1.04 ng/dl (0.76-1.46); HDL Cholesterol 44 mg/dL (29-89); LDL Cholesterol 91 mg/dL (0-130); Total Protein,Serum 6.4 gm/dL (6.4-8.2); Triglycerides 78 mg/dL (30-200); VLDL Cholesterol 16 mg/dL (0-40)
[2019-06-08 14:49] LABS: Thyroid Stimulating Hormone 0.83 uIU/ml (0.358-3.740)
== END ==
PROVIDERS: PCP Nurse Practitioner Family; Visit Provider Urology
DX: E78.2 Mixed hyperlipidemia (principal); I11.9 Hypertensive heart disease without heart failure; I25.10 Atherosclerotic heart disease of native coronary artery without angina pectoris; R00.1 Bradycardia, unspecified; Z72.0 Tobacco use
CPT/HCPCS: 36415; 80061; 80076; 84439; 84443

== ENCOUNTER → 2019-06-12 14:03 | Outpatient (CLI) | payer OTHER, SELFPAY ==
--- NOTE | 2019-06-12 14:05 | CA_ITS ---
APPROVED REPORT EXAM: Comprehensive 2D, Doppler, and color-flow Echocardiogram Machine Room Engineer: Ashely Lewis RDCS Ht: 5 ft 4 in Wt: 188lbs BSA: 1.91 BP: 145/90 mmHg Indications: Murmur, CAD 2D Dimensions LVOT 1.80 cm (M/F) 1.5-2.5 M-Mode Dimensions RVDd 1.80 cm (0.9-2.6) LA Diam 3.30 cm (1.9-4.0) LVDd 5.40 cm (3.5-5.7) Ao Diam 3.50 cm (2.0-3.7) LVDs 3.30 cm (3.5-5.7) AV Cusp 1.50 cm (1.5-2.6) IVSd 0.70 cm (0.6-1.1) PWd 0.90 cm (0.6-1.1) EF (Teich) 68.70% FS 38.90% EDV (Teich) 141.00 mL ESV (Teich) 44.10 mL LV Diastology E/A Ratio 1.1 MED E' 6.63 (< 7 cm/sec) E'/MED E' Ratio 12.90 (>14) LAT E' 9.55 (<10 cm/sec) E/LAT E' Ratio 8.90 (>14) Mitral Valve MV E Max Jeffrey. 85.40 (40-130 cm/s) MV A Velocity 76.50 (40-130 cm/s) E/A Ratio 1.10 Tricuspid Valve TR P. Velocity 281.00 cm/s RAP Estimate 10.00 mmHg RVSP 42.00 mmHg Left Ventricle Left atrium is mildly enlarged, left ventricle is normal size, there is no concentric left ventricular hypertrophy, visually estimated ejection fraction 55% with no regional wall motion abnormality. Grade 1 diastolic dysfunction seen without tissue Doppler evidence of raise left atrial pressure. Right Ventricle Right atrium and right ventricle are normal size and contractility. Atria Aortic valve is minimally thickened and fibrosed. There is no aortic stenosis aortic insufficiency. Mitral Valve Mitral valve is grossly normal, there is no mitral stenosis, there is mild mitral regurgitation. Tricuspid Valve Tricuspid valve is grossly normal, there is mild tricuspid regurgitation, calculated right ventricular systolic pressure is 41 mmHg consistent moderate pulmonary hypertension. Pulmonic Valve Pulmonic valve is poorly visualized. Great Vessels Aortic root is normal size. Pericardium No significant pericardial effusion noted. Conclusion 1. Mildly low left atrium, normal left ventricular size, visually estimated ejection fraction 55% with no regional wall motion abnormality, grade 1 diastolic dysfunction seen without tissue Doppler evidence of raise left atrial pressure. 2. Mild mitral and tricuspid regurgitation, calculated right ventricular systolic pressure is 41 mmHg consistent with moderate pulmonary hypertension. 3. No significant pericardial effusion noted. Electronically signed by : Chris Bustos, 06/15/2019 17:42:18
== END ==
PROVIDERS: PCP Family Medicine; Visit Provider Urology
DX: I25.10 Atherosclerotic heart disease of native coronary artery without angina pectoris (principal); I11.9 Hypertensive heart disease without heart failure; R00.1 Bradycardia, unspecified; E78.2 Mixed hyperlipidemia; Z72.0 Tobacco use
CPT/HCPCS: 93306

== ENCOUNTER → 2019-06-27 07:19 | Outpatient (CLI) | payer OTHER, SELFPAY ==
[2019-06-27 14:16] LABS: Anion Gap 13.7 mEq/L (5-15); Blood Urea Nitrogen 17 mg/dL (7-18); Calcium 8.9 mg/dL (8.5-10.1); Carbon Dioxide 28 mmol/L (21.0-32.0); Chloride 103 mmol/L (98-107); Estimated Glomerular Filt Rate 58 ml/min (>60); GFR (African American) 70 ML/MIN (>60); Glucose 107 mg/dL (74-106); Potassium 3.7 mmoL/L (3.5-5.1); Sodium 141 mmol/L (136-145)
== END ==
PROVIDERS: PCP Nurse Practitioner Family; Visit Provider Urology
DX: R00.1 Bradycardia, unspecified (principal); I25.10 Atherosclerotic heart disease of native coronary artery without angina pectoris; I11.9 Hypertensive heart disease without heart failure; E78.5 Hyperlipidemia, unspecified; Z71.6 Tobacco abuse counseling; Z72.0 Tobacco use
CPT/HCPCS: 36415; 80048

== ENCOUNTER → 2021-03-23 13:29 | Outpatient (CLI) | payer OTHER, SELFPAY ==
--- NOTE | 2021-03-23 13:33 | CA_ITS ---
APPROVED REPORT EXAM: Comprehensive 2D, Doppler, and color-flow Echocardiogram Band Head Saw Operator: Angélica Segal RVT Ht: 5 ft 4 in Wt: 168lbs BSA: 1.82 BP: 110/63 mmHg Indications: SOA,CAD,PHTN,SMOKER,HTN,HLD 2D Dimensions LVOT 1.92 cm (M/F) 1.5-2.5 LA Volume 32.10 mL LA Volume Index 17.73 mL/m2 (M/F) 16-34 M-Mode Dimensions RVDd 2.55 cm (0.9-2.6) LA Diam 3.87 cm (1.9-4.0) LVDd 4.86 cm (3.5-5.7) Ao Diam 2.88 cm (2.0-3.7) LVDs 3.15 cm (3.5-5.7) IVSd 0.68 cm (0.6-1.1) PWd 0.72 cm (0.6-1.1) EF (Teich) 64.40% FS 35.20% EDV (Teich) 110.70 mL TAPSE 2.74 (<1.7) ESV (Teich) 39.40 mL LV Diastology E Decel Time 257.00 (160-240 msec) E/A Ratio 1.1 MED E' 7.00 (< 7 cm/sec) E'/MED E' Ratio 10.60 (>14) LAT E' 14.00 (<10 cm/sec) E/LAT E' Ratio 5.30 (>14) Aortic Valve AO Peak GR. 9.30 mmHg Mitral Valve MV E Max Jeffrey. 74.00 (40-130 cm/s) MV A Velocity 65.00 (40-130 cm/s) E/A Ratio 1.14 MV Decel. Time 257.00 (160-240 ms) MV PHT 75.00 ms Pulmonary Valve PV Peak Velocity 96.00 (50-150 cm/s) Tricuspid Valve TR P. Velocity 262.00 cm/s RAP Estimate 10.00 mmHg RVSP 37.40 mmHg Left Ventricle Left atrium is mildly enlarged, left ventricle is normal size, visually estimated ejection fraction 55%, there is mild concentric left ventricular hypertrophy, there is no obvious regional wall motion abnormality, diastolic parameters are inconclusive. Right Ventricle Right atrium and right ventricle mildly enlarged with normal contractility. Aortic Valve Aortic valve is minimally thickened and fibrosed, there is no aortic stenosis or aortic insufficiency. Mitral Valve Mitral valve grossly normal there is trace mitral regurgitation. Tricuspid Valve Tricuspid grossly normal, there is mild tricuspid regurgitation, calculated right ventricular systolic pressure is 37 mmHg. Pulmonic Valve Pulmonic valve is poorly visualized. Great Vessels Aortic root is normal size. Inferior vena cava is mildly dilated with normal inspiratory collapse. Pericardium No significant pericardial effusion noted. Conclusion 1. Mild biatrial enlargement, normal left ventricular size, mild concentric left ventricular hypertrophy, visually estimated ejection fraction 55% with no regional wall motion abnormality, diastolic parameters are inconclusive. 2. Mildly enlarged right ventricle with normal contractility. 3. Trace mitral and mild tricuspid regurgitation, calculated right ventricular systolic pressure is 37 mmHg, inferior vena cava is mildly dilated with normal inspiratory collapse. 4. No significant pericardial effusion noted. Electronically signed by : Chris Bustos, 03/23/2021 20:20:30
== END ==
PROVIDERS: PCP Nurse Practitioner; Visit Provider Urology
DX: R00.1 Bradycardia, unspecified (principal); I11.9 Hypertensive heart disease without heart failure; I25.10 Atherosclerotic heart disease of native coronary artery without angina pectoris; E78.5 Hyperlipidemia, unspecified; Z72.0 Tobacco use
CPT/HCPCS: 93306

== ENCOUNTER → 2022-03-17 14:14 | Outpatient (CLI) | payer OTHER, SELFPAY ==
[2022-03-17 15:07] LABS: Basophils # 0.1 K/mm3 (0-0.2); Basophils % 1.4 % (0.1-2.0); Eosinophils # 0.1 K/mm3 (0.0-0.4); Eosinophils % 1.9 % (0.1-12.0); Hematocrit 39.4 % (37.0-47.0); Hemoglobin 13.5 g/dL (12.2-16.2); Lymphocytes # 2.4 K/mm3 (0.7-4.5); Lymphocytes % 33.5 % (10-50); Mean Corpuscular HGB Conc 34.2 g/dL (31.8-35.4); Mean Corpuscular Hemoglobin 33.7 pg (27.0-31.2); Mean Corpuscular Volume 98.3 fl (81-99); Mean Platelet Volume 10.7 fl (7.4-10.4); Monocytes # 0.4 K/mm3 (0.1-1.0); Monocytes % 4.9 % (1.7-9.3); Neutrophils # 4.2 K/mm3 (1.8-7.8); Neutrophils % 58.4 % (37.0-80.0); Platelet Count 149 K/mm3 (142-424); Red Blood Count 4.01 M/mm3 (4.20-5.40); Red Cell Distribution Width 13.9 % (11.5-17.5); White Blood Count 7.2 K/mm3 (4.8-10.8)
[2022-03-17 15:27] LABS: Chloride 104 mmol/L (98-107); Potassium 3.8 mmoL/L (3.5-5.1); Sodium 136 mmol/L (136-145)
[2022-03-17 15:29] LABS: Bilirubin,Unconjugated 0.4 mg/dL (0.0-1.1); Blood Urea Nitrogen 14 mg/dl (7-17); Estimated Glomerular Filt Rate 74 ml/min (>60); GFR (African American) 90 ML/MIN (>60)
[2022-03-17 15:30] LABS: Alanine Aminotransferase 16 U/L (12-78); Albumin Level 3.9 g/dl (3.5-5.0); Alkaline Phosphatase 90 U/L (38-126); Anion Gap 7.8 mEq/L (5-15); Aspartate Amino Transferase 24 U/L (14-36); Bilirubin,Direct 0.1 mg/dl (0.0-0.4); Bilirubin,Indirect 0.5 mg/dL (0.0-0.9); Bilirubin,Total 0.6 mg/dl (0.2-1.3); Calcium 9.2 mg/dl (8.4-10.2); Carbon Dioxide 28 mmol/L (22.0-30.0); Chol/HDL Ratio 2.9 (1-3.5); Cholesterol 143 mg/dl (140-200); Glucose 96 mg/dl (74-100); HDL Cholesterol 50 mg/dl (40-60); Total Protein,Serum 6.3 g/dl (6.3-8.2); Triglycerides 79 mg/dl (30-150); VLDL Cholesterol 16 mg/dL (0-40)
[2022-03-17 15:41] LABS: Direct LDL Cholesterol 73.56 mg/dL (100-129)
== END ==
PROVIDERS: PCP Nurse Practitioner; Visit Provider Nurse Practitioner
DX: I25.10 Atherosclerotic heart disease of native coronary artery without angina pectoris (principal); E78.5 Hyperlipidemia, unspecified
CPT/HCPCS: 36415; 80048; 80061; 80076; 85025

== ENCOUNTER 2022-05-30 12:12 | Emergency (ER) | payer OTHER, SELFPAY ==
[2022-05-30 13:20] VITALS: BP 140/90; PULSE 97; RESP 19; TEMP 39.1; O2SAT 97; BMI 24.0
--- NOTE | 2022-05-30 13:41 | HMH.EDUTC ---
[facility] Disposition Clinical Impression: Otitis media Qualifiers: Otitis media type: unspecified Laterality: left Qualified Code(s): H66.92 - Otitis media, unspecified, left ear Disposition: Home, Self-Care Condition on Discharge: Good Instructions: Middle Ear Infection Additional Instructions: *Monitor Temp, Over the counter Motrin or Tylenol as directed/as needed Tylenol every 4 hours and Motrin every 6 hours (as long as your family doctor has told you that you can take it) for fever or pain. and straight to ER if unable to lower temp less than 101.0 after medication given *Warm salt water gargles may help to soothe the throat *Throat Lozenges *Warm fluids like tea with honey may help to soothe the throat *Sleep elevated *Humidifier/Vaporizer Take medication as prescribed Follow up IMMEDIATELY for new or worsening symptoms or no Noticeable improvement over the next 48-72 hours. 911 for difficulty breathing or swallowing You were tested for today for COVID19 your test result should be back in the next 24-48 hours, you may check your results on the [facility] My Health Portal Make sure to take your Vitamins Vit. C Vit D and Zinc if you can take them Prescriptions: Amoxicillin [Amoxicillin 500mg Cap] 500 mg PO TID #30 cap Transmission Status: Pending to [facility] Referrals: Lou Ly APRN [Primary Care Provider] - As needed Forms: Work/School Release Time of Disposition: 14:15 Medical Decision Making - Ramiro Inquiry Pt receiving controlled substance: No Ramiro was queried for this patient: No Vital Signs: 05/30/22 13:20 05/30/22 13:54 Temperature 102.3 F H 100.4 F H Temperature Source Oral Pulse Rate 97 H Pulse Rate [Right Brachial] 97 H Respiratory Rate 19 19 Blood Pressure 140/90 Blood Pressure [Left Arm] 140/90 Blood Pressure Mean [Left Arm] 106 Blood Pressure Source [Left Arm] Automatic Cuff Blood Pressure Position [Left Arm] Sitting 02 Sat by Pulse Oximetry 97 Oxygen Delivery Method Room Air - Lab Data Lab results reviewed: Yes: I reviewed the patient's lab results. Lab Results 05/30/22 13:44: Influenza Type A Ag Negative, Influenza Type B Ag Negative Orders (Tests/Meds): ED MEDICATIONS Discontinued Medications Generic Name Dose Route Start Last Admin Trade Name Manuel PRN Reason Stop Dose Admin Acetaminophen 650 mg 05/30/22 13:37 05/30/22 13:41 Acetaminophen 325mg Tab PO 05/30/22 13:38 650 mg ONCE ONE Administration ORDERS Category Date Time Status Covid-19 Nasal PCR ([facility]) Routine Lab 05/30/22 13:20 Received [facility] HPI - General Stated complaint: Severe headache, fever, ear pain, body aches Time Seen by Provider: 05/30/22 13:46 Mode of Arrival: Ambulatory Source of Information: Patient Limitations: No Limitations Description of Symptoms (Recalled from Triage Doc. by RN): PATIENT C/O HEADACHE, BODY ACHES AND EAR PAIN. HEENT Symptoms (Recalled from RN notes): Yes Resp Symptoms (Recalled from RN notes): No Skin Symptoms (Recalled from RN notes): No MS Symptoms (Recalled from RN notes): No Functional Status (Recalled from RN notes): WNL - History of Present Illness Provider Complaint: Patient states that she hasnt felt well for the last few days States that she has been having pain in her left ear, fever, chills, body aches and headache States that she hasnt been exposed to COVID that she is aware of States that today she was feeling worse so she came in - Related Data Previous Rx's Medication Instructions Recorded atorvastatin 80 mg tablet 80 mg PO DAILY #90 tab 09/16/21 clopidogrel 75 mg tablet 75 mg PO DAILY #90 tab 09/16/21 furosemide 40 mg tablet 40 mg PO DAILY #90 tab 09/16/21 lisinopril 20 mg tablet 20 mg PO DAILY #90 tab 09/16/21 pantoprazole 40 mg tablet,delayed 40 mg PO DAILY #90 tab 09/16/21 release carvedilol 6.25 mg tablet 6.25 mg PO BID #180 tab 04/14/22 Amoxicillin [Amoxicillin 500mg 500 mg PO TID #3
[2022-05-30 13:54] VITALS: BP 140/90; PULSE 97; RESP 19; TEMP 38; O2SAT 97
[2022-05-30 13:56] LABS: UTC Influenza A Antigen Negative (Negative); UTC Influenza B Antigen Negative (Negative)
== END 2022-05-30 14:19 | disposition home or self-care (01) ==
PROVIDERS: Emergency Provider Nurse Practitioner; PCP Nurse Practitioner
DX: U07.1 COVID-19 (principal); H66.92 Otitis media, unspecified, left ear
CPT/HCPCS: 87804; 99212; C9803; G0463; U0003; U0005

== ENCOUNTER → 2023-01-04 11:29 | Outpatient (CLI) | payer OTHER, SELFPAY ==
--- NOTE | 2023-01-04 11:39 | XR_ITS ---
FINAL REPORT CLINICAL HISTORY: .neck and shoulder pain x 1 week FINDINGS: CERVICAL SPINE Three views were obtained. There is no acute fracture. There is no malalignment. There is multilevel degenerative disc disease which is most pronounced at C5-6 and C6-7. There are bilateral carotid calcifications. IMPRESSION: 1. No acute bony abnormality. 2. Multilevel degenerative disc disease, most pronounced at C5-6 and C6-7. Reviewed, Interpreted and Dictated by Sharonda Merino MD Transcribed by Atiya Anne Authenticated and [facility]
--- NOTE | 2023-01-04 11:40 | XR_ITS ---
FINAL REPORT CLINICAL HISTORY: . thoracic back pain. SOB/SOA COMPARISON: 09/14/2019 FINDINGS: PA and lateral views of the chest are obtained. There is no prior exam for comparison. The cardiac and mediastinal silhouettes are within normal limits. The lungs are clear. There is no pleural effusion, pneumothorax, or acute osseous abnormality. IMPRESSION: No radiographic evidence of acute cardiac or pulmonary disease. Reviewed, Interpreted and Dictated by Sharonda Merino MD Transcribed by Atiya Anne Authenticated and [facility]
== END ==
PROVIDERS: PCP Nurse Practitioner; Visit Provider Nurse Practitioner
DX: M54.2 Cervicalgia (principal); M54.6 Pain in thoracic spine
CPT/HCPCS: 71046; 72040

== ENCOUNTER 2023-01-11 11:40 | Emergency (ER) | payer OTHER, SELFPAY ==
[2023-01-11 11:40] VITALS: BP 119/69; PULSE 64; RESP 16; TEMP 36.9; O2SAT 98; BMI 27.4
--- NOTE | 2023-01-11 11:40 | ECG_ITS ---
APPROVED REPORT Exam: Resting ECG HR:68 bpm ECG Measurements Heart Rate 68 AXES PA 126 P 55 QRSd 105 QRS 43 QT 404 T 38 QTc 421 Conclusion SINUS RHYTHM INCOMPLETE RIGHT BUNDLE BRANCH BLOCK [90+ ms QRS DURATION, TERMINAL R IN V1/V2, 40+ ms S IN I/aVL/V4/V5/V6] BORDERLINE ECG UNCONFIRMED REPORT Electronically signed by : Rigoberto Fleming MD 01/11/2023 21:16:00
--- NOTE | 2023-01-11 11:47 | XR_ITS ---
FINAL REPORT CLINICAL HISTORY: chest pain COMPARISON: 01/04/2023 FINDINGS: SINGLE-VIEW CHEST The heart size is normal. The mediastinum is normal. The lungs are underinflated. There is no pneumothorax. IMPRESSION: No acute cardiopulmonary process. Reviewed, Interpreted and Dictated by Bruno Katz MD Transcribed by Yaritza Pierre Authenticated and . [facility]
--- NOTE | 2023-01-11 11:47 | CT_ITS ---
FINAL REPORT CLINICAL HISTORY: dizziness FINDINGS: Thin section axial CT with IV contrast supplemented with multiplanar reconstruction under CT angiogram protocol. This study was performed with techniques to keep radiation doses as low as reasonably achievable (ALARA). Individualized dose reduction techniques using automated exposure control or adjustment of mA and/or kV according to the patient''s size were employed. NASCET criteria was utilized during interpretation. Aortic arch: Arch shows no significant narrowing. Great vessel origins are widely patent. Right carotid: No significant stenosis is seen of the cervical common or internal carotid artery. Left carotid: Dense calcification in the proximal ICA with mild stenosis. Vertebral: Left vertebral artery is dominant. No significant stenosis is present. IMPRESSION: Dense calcification in the proximal left ICA with mild stenosis. Reviewed, Interpreted and Dictated by Bruno Katz MD Transcribed by Aaron Morgan Authenticated and [facility]
--- NOTE | 2023-01-11 11:47 | CT_ITS ---
FINAL REPORT CLINICAL HISTORY: dizziness FINDINGS: Axial imaging of the head was obtained without contrast. A subsequent CTA was performed. This study was performed with techniques to keep radiation doses as low as reasonably achievable, (ALARA). Individualized dose reduction techniques using automated exposure control or adjustment of mA and/or kV according to the patient's size were employed. CT head: The ventricles are normal in size. There is no evidence of hemorrhage. No masses are identified. No extra-axial fluid is seen. The sinuses are normal. There is no acute osseous abnormality. CTA head: The distal vertebral, basilar and distal internal carotid arteries have an unremarkable appearance. No aneurysm is seen. Major intracranial vessels are patent without significant stenosis. IMPRESSION: No acute process. No major vessel occlusion. Reviewed, Interpreted and Dictated by Bruno Katz MD Transcribed by Aaron Morgan Authenticated and [facility]
--- NOTE | 2023-01-11 11:49 | HMH.EDGENADL ---
Discharge Plan Disposition Patient Disposition: Home, Self-Care Condition: Good Prescriptions Prescriptions: New meclizine 25 mg tablet 25 mg PO TID PRN (Reason: dizziness) Qty: 14 0RF No Action atorvastatin 80 mg tablet 80 mg PO DAILY Qty: 90 3RF carvedilol 6.25 mg tablet 6.25 mg PO ONCE Qty: 180 2RF clopidogrel 75 mg tablet 75 mg PO DAILY Qty: 90 3RF furosemide [Lasix] 40 mg tablet 40 mg PO DAILY Qty: 90 3RF lisinopril 20 mg tablet 20 mg PO DAILY Qty: 90 3RF pantoprazole 40 mg tablet,delayed release (DR/EC) 40 mg PO DAILY Qty: 90 3RF Referrals Follow up/Referrals: Lou Ly APRN [Primary Care Provider] - See instructions Clinical Impressions Clinical Impression: Chest pain, Vertigo, Hypokalemia Instructions Patient Instructions: Vertigo, DI for Atypical Chest Pain, Hypokalemia Print Language Print Language: Cypriot Discharge ED Provider: Mil Montiel General Adult HPI General Chief complaint: Chest Pain Stated complaint: chest pain Time Seen by Provider: 01/11/23 14:28 Mode of Arrival: Ambulatory Source of Information: Patient Limitations: No Limitations Description of Symptoms (Recalled from ER Triage Doc. by RN): pt presents to ED c/o chest pain that started around 0430. pt states that she has also been experiencing dizziness that was present when she woke up. pt denies pain radiating. pt denies any aggravating or relieving factors. History of Present Illness HPI narrative: Patient presents to the emergency department with right-sided chest pain radiating to her right arm. She mostly describes it as a pressure. She states that she is also having dizziness which started around 3:00 this morning. She was told earlier this week that she had blockages in her neck which was done from a plane x-ray from her cervical spine. She does describe dizziness at this time. Denies any fever or chills. Denies any significant cough, congestion Related Data Previous Rx's Medication Instructions Recorded atorvastatin 80 mg tablet 80 mg PO DAILY #90 tabs 09/28/22 carvedilol 6.25 mg tablet 6.25 mg PO ONCE #180 tabs 09/28/22 clopidogrel 75 mg tablet 75 mg PO DAILY #90 tabs 09/28/22 furosemide 40 mg tablet (Lasix) 40 mg PO DAILY #90 tabs 09/28/22 lisinopril 20 mg tablet 20 mg PO DAILY #90 tabs 09/28/22 pantoprazole 40 mg tablet,delayed 40 mg PO DAILY #90 tabs 09/28/22 release meclizine 25 mg tablet 25 mg PO TID PRN dizziness #14 tabs 01/11/23 Allergies Allergy/AdvReac Type Severity Reaction Status Date / Time No Known Allergies Allergy Verified 09/15/22 13:17 [facility] Disclaimer: The information contained in this section may have been updated after the patient was seen, as this information can be updated by other users. Medical History CAD (coronary artery disease) HHD (hypertensive heart disease) HLD (hyperlipidemia) Sinus bradycardia Tobacco abuse Tobacco abuse counseling Social History Smoking Status: Current every day smoker tobacco type: cigarettes packs per day: 1 second hand exposure: Yes alcohol intake: never substance use type: denies use current occupational status: other Travel in the last 8 weeks: None housing: house current occupational exposures/hazards: No caffeine: Yes ROS Obtained: Yes All systems reviewed & no additional complaints except as documented ENT Ears, Nose, Mouth, and Throat: Reports dizziness Cardiovascular Cardiovascular: Reports chest pain Respiratory Respiratory: Reports shortness of breath Neurologic Neurologic: Reports dizziness Physical Exam General General appearance: alert and in no apparent distress Head Head exam: atraumatic and normocephalic Eye Eye exam: Present normal appearance, PERRL and EOMI Chest Chest inspection: Present normal inspection and symmetric chest w
[2023-01-11 11:56] LABS: Basophils # 0.1 K/mm3 (0-0.2); Eosinophils # 0.2 K/mm3 (0.0-0.4); Eosinophils % 2.2 % (0.1-12.0); Hemoglobin 14.7 g/dL (12.2-16.2); Lymphocytes # 4.4 K/mm3 (0.7-4.5); Mean Corpuscular HGB Conc 32.6 g/dL (31.8-35.4); Mean Corpuscular Volume 98.2 fl (81-99); Mean Platelet Volume 9.2 fl (7.4-10.4); Monocytes # 0.7 K/mm3 (0.1-1.0); Neutrophils # 4.6 K/mm3 (1.8-7.8); Neutrophils % 45.8 % (37.0-80.0); Platelet Count 186 K/mm3 (142-424); Red Blood Count 4.58 M/mm3 (4.20-5.40); Red Cell Distribution Width 13.7 % (11.5-17.5); White Blood Count 10.1 K/mm3 (4.8-10.8)
[2023-01-11 12:00] VITALS: BP 119/72; PULSE 64; RESP 19; O2SAT 99
[2023-01-11 12:00] LABS: Chloride 102 mmol/L (98-107); Potassium 3.2 mmoL/L (3.5-5.1); Sodium 138 mmol/L (136-145)
[2023-01-11 12:03] LABS: Alanine Aminotransferase 21 U/L (12-78); Albumin/Globulin Ratio 1.6 (1.1-1.8); Alkaline Phosphatase 122 U/L (38-126); Anion Gap 9.2 mEq/L (5-15); Aspartate Amino Transferase 22 U/L (14-36); Bilirubin,Total 0.3 mg/dl (0.2-1.3); Blood Urea Nitrogen 19 mg/dl (7-17); Carbon Dioxide 30 mmol/L (22.0-30.0); Creatinine Clearance Estimated 90 mL/min (50-200); Estimated Glomerular Filt Rate 74 ml/min (>60); GFR (African American) 90 ML/MIN (>60); Globulin 2.5 g/dL (1.3-3.2); Total Protein,Serum 6.5 g/dl (6.3-8.2)
[2023-01-11 12:04] LABS: Calcium 8.3 mg/dl (8.4-10.2); Glucose 106 mg/dl (74-100)
--- NOTE | 2023-01-11 12:09 | PC.NURSE ---
notified rad staff of CT orders
--- NOTE | 2023-01-11 12:15 | PC.NURSE ---
ivf started per DEC, pt resting in bed, call light in reach, states no needs at this time. updated pt on POC (cts ordered and radiology is aware of new orders on pt)
[2023-01-11 12:17] LABS: Troponin I < 0.01 ng/ml (0.00-0.034)
--- NOTE | 2023-01-11 12:33 | PC.NURSE ---
pt returned from radiology via wheelchair
[2023-01-11 12:54] VITALS: BP 124/67; PULSE 53; RESP 16; O2SAT 99
[2023-01-11 13:13] VITALS: BP 108/59; PULSE 55; RESP 17; O2SAT 99
[2023-01-11 14:01] VITALS: BP 123/62; PULSE 56; RESP 13; O2SAT 98
[2023-01-11 14:33] VITALS: BP 105/64; PULSE 64; RESP 17; TEMP 36.6; O2SAT 95
--- NOTE | 2023-01-11 14:41 | PC.NURSE ---
pt ambulating out after D/C
== END 2023-01-11 14:43 | disposition home or self-care (01) ==
PROVIDERS: Emergency Provider Emergency Medicine; PCP Nurse Practitioner
DX: R07.9 Chest pain, unspecified (principal); E87.6 Hypokalemia; R42 Dizziness and giddiness
CPT/HCPCS: 70496; 70498; 71045; 80053; 84484; 85025; 93005; 96360; 99285; Q9967

== ENCOUNTER → 2023-01-11 17:22 | Outpatient (CLI) | payer OTHER, SELFPAY ==
[2023-01-12 10:18] LABS: Bilirubin,Unconjugated 0.3 mg/dL (0.0-1.1)
[2023-01-12 10:19] LABS: Alanine Aminotransferase 18 U/L (12-78); Albumin Level 3.7 g/dl (3.5-5.0); Alkaline Phosphatase 121 U/L (38-126); Aspartate Amino Transferase 19 U/L (14-36); Bilirubin,Direct 0.1 mg/dl (0.0-0.4); Bilirubin,Indirect 0.3 mg/dL (0.0-0.9); Bilirubin,Total 0.4 mg/dl (0.2-1.3); Chol/HDL Ratio 2.5 (1-3.5); Cholesterol 134 mg/dl (140-200); HDL Cholesterol 53 mg/dl (40-60); Magnesium 1.9 mg/dl (1.6-2.3); Triglycerides 175 mg/dl (30-150); VLDL Cholesterol 35 mg/dL (0-40)
[2023-01-12 10:30] LABS: Direct LDL Cholesterol 65.08 mg/dL (100-129)
[2023-01-12 10:50] LABS: Thyroid Stimulating Hormone 0.63 uIU/mL (0.465-4.68)
== END ==
PROVIDERS: Internal Medicine; PCP Family Medicine; Visit Provider Family Medicine
DX: I25.10 Atherosclerotic heart disease of native coronary artery without angina pectoris (principal); I11.9 Hypertensive heart disease without heart failure; E78.2 Mixed hyperlipidemia; Z72.0 Tobacco use
CPT/HCPCS: 80061; 80076; 83735; 84439; 84443

== ENCOUNTER → 2023-02-15 06:41 | Outpatient (CLI) | payer OTHER, SELFPAY ==
--- NOTE | 2023-02-15 06:41 | NM_ITS ---
APPROVED REPORT Exam: Nuclear Stress Test Indication: CAD, 3 STENTS, HTN, HYPERLIPIDEMIA, TOB USE, SOB, SYNCOPE, FATIGUE Patient Location: Outpatient Stress Tech: Cathy Gunter NM Tech:Corrina GarciasSUMAN mckeon RT (R)(N)(M) Ht: 5 ft 4 in Wt: 160 lbs Bra Size: C HR: 46 bpm BP: 113/59 mmHg BSA: 1.78 m2 TID: 1.16 BMI: 27.4 History: CAD, 3 STENTS, HTN, HYPERLIPIDEMIA, TOB USE, SOB, SYNCOPE, FATIGUE Procedure: Patient received 0.4 mg of intravenous Lexiscan, resting heart rate 46 bpm, resting blood pressure 113/59 mmHg, with Lexiscan maximum heart rate achieved was 87 bpm which is % of the maximum predicted heart rate and blood pressure was 85/54 mmHg. Cardiac Stress and Resting SPECT Images: Cardiac Stress and Resting SPECT images were obtained using technetium 99m Myoview 31.4 mCi stress and 10.68 mCi at rest. Stress and rest images reveal severely decreased myocardial activity throughout all the myocardium. Gated images calculated ejection fraction 39% with severe anterior apical and inferoapical ballooning and global hypokinesis Conclusion: High risk abnormal stress test with poor myocardial activity with both stress and rest accompanied by severe regional wall motion abnormalities and reduced ejection fraction. Recommend further analysis of ejection fraction with different modality Electronically signed by : Adarsh Ventura MD 02/15/2023 13:45:47
--- NOTE | 2023-02-15 06:41 | CA_ITS ---
APPROVED REPORT Exam: Pharmacologic Technologist: Cathy Gunter, Ht: 5 ft 4 in Wt: 162 lbs BSA: 1.79 m2 HR: 46 bpm BP: 113/ mmHg Rhythm: sinus gerson, incomplete RBBB, NS ST abns laterally Medical History Medications: Lisinopril,,,,, Pantoprazole,,,,, Atorvastatin,,,,, Carvedilol,,,,, Lasix,,,,, CloPIdogrel,,,,, Cardiac Risk Factors: HTN, Hyperlipidemia, Smoking Stress Test Details Test: LEXISCAN HR Resting HR: 55 bpm Max Heart Rate (APMHR): 164.048211 bpm Max HR Achieved: 87 bpm Target HR (85% APMHR): 139.056173 bpm % of APMHR: 53.05 Recovery HR: 70 bpm BP Resting BP: 113/59 mmHg Max BP: 113/59 mmHg Recovery BP: 107.0/56.0 mmHg ECG Resting ECG: sinus gerson, incomplete RBBB, NS ST abns laterally Clinical Exercise duration: 04:00 min Highest Stage Achieved: Stress ECG Conclusion During lexiscan pt experinced mild chest pressure, SOA, and light headed. Hypotension resolved slowly with laying flat. Rare PVC noted. No significant ST changes. Myoview images reported separately Test Summary REST . . . . . . . Sitting REST 05:51 . . 55 . 113/ 59 . . Stage 1 01:00 . . 63 . . . . Stage 2 01:00 . . 84 . 85/ 54 . . Stage 3 01:00 . . 79 . . . . Stage 4 01:00 . . 70 . 112/ 64 . Stop exercise at 04:00 RECOVERY 01:00 . . 76 . 107/ 56 . . RECOVERY 02:00 . . 67 . 98/ 60 . . RECOVERY 03:00 . . 67 . 96/ 59 . . RECOVERY 04:00 . . 67 . 89/ 58 . . RECOVERY 05:00 . . 66 . 96/ 60 . . RECOVERY 06:00 . . 65 . 96/ 60 . . RECOVERY 07:00 . . 68 . 100/ 61 . . RECOVERY 08:00 . . 66 . 100/ 61 . . RECOVERY 09:00 . . 64 . 106/ 62 . . RECOVERY 10:00 . . 61 . 106/ 62 . . RECOVERY 11:00 . . 56 . 102/ 61 . . RECOVERY 12:00 . . 63 . 99/ 60 . . RECOVERY 13:00 . . 64 . 99/ 60 . . RECOVERY 14:00 . . 60 . 99/ 60 . . RECOVERY 15:00 . . 59 . 99/ 60 . . RECOVERY 15:38 . . 62 . 97/ 56 . . Electronically signed by : Adarsh Ventura MD 02/15/2023 09:50:40
== END ==
PROVIDERS: PCP Nurse Practitioner; Visit Provider Nurse Practitioner
DX: R07.9 Chest pain, unspecified (principal); R00.1 Bradycardia, unspecified; I25.10 Atherosclerotic heart disease of native coronary artery without angina pectoris; I11.9 Hypertensive heart disease without heart failure; E78.2 Mixed hyperlipidemia; Z71.6 Tobacco abuse counseling; Z72.0 Tobacco use
CPT/HCPCS: 78452; 93017; 93306; A9502; J2785

== ENCOUNTER 2023-03-10 08:25 | Day surgery (SDC) | payer OTHER, SELFPAY ==
[2023-03-10] VITALS (10 sets, daily range): BP systolic 111–154; BP diastolic 49–83; PULSE 42–83; RESP 16–20; O2SAT 93–98; BMI 28.3; BMI 37.5
--- NOTE | 2023-03-10 07:15 | IR_ITS ---
APPROVED REPORT Patient Location: Outpatient PROCEDURES Left heart catheterization Left ventriculogram Selective coronary angiogram Drug-eluting stent deployment to the proximal circumflex artery Intravascular ultrasound of the LAD Intravascular lithotripsy to the proximal and mid LAD Drug-eluting stent deployment to the proximal and mid LAD INDICATION High risk abnormal Myoview, Coronary artery disease, Severe LAD calcification, Angiographic ambiguity in the proximal LAD, Angina pectoris Informed consent was obtained prior to the procedure. COMPLICATIONS None Estimated Blood Loss: Less than 10 ML TECHNIQUE One percent lidocaine used to anesthetize the right anterior aspect of the wrist. The right radial artery was accessed via the Seldinger technique. A 6 Gambian sheath was placed in the right radial artery. 150 mg magnesium sulfate, 800 mcg of nitroglycerin, 1mg Lidocaine and 5000 U Heparin were given through the arterial sheath. The papa catheter was also used to perform left heart catheterization, left ventriculogram and selective coronary angiogram. At the end of the diagnostic angiogram therapeutic heparin was administered giving a therapeutic ACT and the and the guide catheter was placed in left main artery followed by a Choice PT extra-support wire being placed on the circumflex artery. A 4 mm x 8 mm frontier [place] stent was deployed at 20 emma reducing the eccentric severe stenosis to 0%. An additional wire was then placed down the LAD. Intravascular ultrasound probe was advanced due to the high risk abnormal stress test as well as the hazy angiographic ambiguity in the proximal LAD. The intravascular ultrasound probe could not be advanced due to dense calcification. A 2.5 x 12 mm noncompliant balloon was then placed in the proximal LAD however this would not advance beyond the calcified stenosis. A guide liner was then advanced and eventually a 2 mm x 12 mm compliant balloon was deployed at 15 emma. A 2.5 mm balloon could still not be advanced without significant pushing and support from the guide liner. The balloon was deployed at 20 emma. Following this a 3 mm x 12 mm intravascular lithotripsy shockwave balloon was advanced and 9 different pulsations were delivered at 4 emma in the proximal and mid LAD. Advancing the guide liner beyond the stenosis a 3 mm x 38 mm frontier [place] stent was then deployed at 18 emma reducing the stenosis to 0%. A 3.5 x 8 mm noncompliant balloon was then placed in the proximal and midportion of the LAD and deployed at 20 emma to post dilate the calcified severe stenosis. DICK-3 flow was present down both vessels before and after the procedure. At the end of procedure the apparatus was removed the sheath was removed and hemostasis were achieved using TR banding patient was transferred to the postop area in stable condition ANGIOGRAPHIC RESULTS The left main artery Normal The left anterior descending artery Has a severe densely calcified critical stenosis based on inability to pass a small noncompliant balloon. At the end of the procedure the proximal mid LAD is widely patent with additional calcified 20 to 30% distal stenoses with DICK-3 flow. The circumflex artery Is a large nondominant vessel and has a proximal eccentric at least 70% edge stent stenosis. Distal to the proximal circumflex artery stent circumflex artery stent widely patent. The right coronary artery Is a dominant vessel and has a stent in the proximal to mid segment. The stent is widely patent in the proximal portion however the midportion has 50% concentric in-stent restenosis accompanied by DICK-3 flow distally. The RIVERA ventriculogram reveals Not performed The left ventricular end-diastol
[2023-03-10 09:19] LABS: Basophils % 0.6 % (0.1-2.0); Eosinophils # 0.1 K/mm3 (0.0-0.4); Eosinophils % 1.3 % (0.1-12.0); Hematocrit 41.5 % (37.0-47.0); Hemoglobin 13.7 g/dL (12.2-16.2); Lymphocytes # 1.9 K/mm3 (0.7-4.5); Lymphocytes % 25.3 % (10-50); Mean Corpuscular HGB Conc 32.9 g/dL (31.8-35.4); Mean Corpuscular Hemoglobin 31.7 pg (27.0-31.2); Mean Corpuscular Volume 96.3 fl (81-99); Mean Platelet Volume 10.7 fl (7.4-10.4); Monocytes # 0.5 K/mm3 (0.1-1.0); Monocytes % 6.5 % (1.7-9.3); Neutrophils # 4.9 K/mm3 (1.8-7.8); Neutrophils % 66.4 % (37.0-80.0); Platelet Count 143 K/mm3 (142-424); Red Blood Count 4.31 M/mm3 (4.20-5.40); Red Cell Distribution Width 13.7 % (11.5-17.5); White Blood Count 7.4 K/mm3 (4.8-10.8)
[2023-03-10 09:22] LABS: Chloride 105 mmol/L (98-107)
[2023-03-10 09:23] LABS: Potassium 3.5 mmoL/L (3.5-5.1); Sodium 140 mmol/L (136-145)
[2023-03-10 09:25] LABS: Blood Urea Nitrogen 14 mg/dl (7-17); Creatinine Clearance Estimated 92 mL/min (50-200); Estimated Glomerular Filt Rate 74 ml/min (>60); GFR (African American) 89 ML/MIN (>60)
[2023-03-10 09:26] LABS: Anion Gap 10.5 mEq/L (5-15); Calcium 8.9 mg/dl (8.4-10.2); Carbon Dioxide 28 mmol/L (22.0-30.0); Glucose 94 mg/dl (74-100)
[2023-03-10 09:28] LABS: Activated Partial Thrombo Time 25.4 seconds (22.8-30.6)
[2023-03-10 13:41] LABS: CATHL Activated Clotting Time > 400 SEC (74-125)
[2023-03-10 13:41] LABS: CATHL Activated Clotting Time > 400 SEC (74-125)
--- NOTE | 2023-03-10 15:02 | P.CONPHA_ITS ---
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
== END 2023-03-10 16:50 | disposition home or self-care (01) ==
PROVIDERS: PCP Nurse Practitioner; Visit Provider Internal Medicine
DX: I11.9 Hypertensive heart disease without heart failure (principal); I25.118 Atherosclerotic heart disease of native coronary artery with other forms of angina pectoris; F17.210 Nicotine dependence, cigarettes, uncomplicated; T82.855A Stenosis of coronary artery stent, initial encounter; Z79.899 Other long term (current) drug therapy; E78.5 Hyperlipidemia, unspecified
CPT/HCPCS: 80048; 85025; 85347; 85730; 92928; 92978; 93458; 99152; 99153; C1725; C1761; C1769; C1874; C1876; C9600; J1644; Q9967

== ENCOUNTER → 2023-09-27 13:27 | Outpatient (CLI) | payer OTHER, SELFPAY ==
[2023-09-27 14:24] LABS: Basophils % 0.4 % (0.1-2.0); Eosinophils # 0.1 K/mm3 (0.0-0.4); Eosinophils % 0.9 % (0.1-12.0); Hematocrit 39.8 % (37.0-47.0); Hemoglobin 13.8 g/dL (12.2-16.2); Lymphocytes # 2.2 K/mm3 (0.7-4.5); Lymphocytes % 24.8 % (10-50); Mean Corpuscular HGB Conc 34.6 g/dL (31.8-35.4); Mean Corpuscular Hemoglobin 33.4 pg (27.0-31.2); Mean Corpuscular Volume 96.4 fl (81-99); Mean Platelet Volume 9.8 fl (7.4-10.4); Monocytes # 0.3 K/mm3 (0.1-1.0); Monocytes % 3.1 % (1.7-9.3); Neutrophils # 6.4 K/mm3 (1.8-7.8); Neutrophils % 70.8 % (37.0-80.0); Platelet Count 165 K/mm3 (142-424); Red Blood Count 4.13 M/mm3 (4.20-5.40); Red Cell Distribution Width 13.7 % (11.5-17.5)
[2023-09-27 14:34] LABS: Alanine Aminotransferase 22 U/L (12-78); Albumin Level 4.1 g/dl (3.5-5.0); Alkaline Phosphatase 100 U/L (38-126); Anion Gap 9.2 mEq/L (5-15); Aspartate Amino Transferase 27 U/L (14-36); Bilirubin,Indirect 0.8 mg/dL (0.0-0.9); Bilirubin,Total 0.8 mg/dl (0.2-1.3); Bilirubin,Unconjugated 0.8 mg/dL (0.0-1.1); Blood Urea Nitrogen 15 mg/dl (7-17); Calcium 8.5 mg/dl (8.4-10.2); Carbon Dioxide 28 mmol/L (22.0-30.0); Chloride 106 mmol/L (98-107); Chol/HDL Ratio 2.9 (1-3.5); Cholesterol 150 mg/dl (140-200); Estimated Glomerular Filt Rate 65 ml/min (>60); GFR (African American) 78 ML/MIN (>60); Glucose 102 mg/dl (74-100); HDL Cholesterol 51 mg/dl (40-60); Magnesium 1.9 mg/dl (1.6-2.3); Potassium 4.2 mmoL/L (3.5-5.1); Sodium 139 mmol/L (136-145); Total Protein,Serum 6.7 g/dl (6.3-8.2); Triglycerides 91 mg/dl (30-150); VLDL Cholesterol 18 mg/dL (0-40)
[2023-09-27 14:50] LABS: Free T4 (Free Thyroxine) 1.24 ng/dl (0.78-2.19)
[2023-09-27 14:51] LABS: Direct LDL Cholesterol 85.29 mg/dL (100-129)
[2023-09-27 15:03] LABS: Thyroid Stimulating Hormone 0.22 uIU/mL (0.465-4.68)
== END ==
PROVIDERS: PCP Nurse Practitioner; Visit Provider Physician Assistant
DX: E78.5 Hyperlipidemia, unspecified (principal); I11.9 Hypertensive heart disease without heart failure; I25.10 Atherosclerotic heart disease of native coronary artery without angina pectoris; R00.1 Bradycardia, unspecified; Z72.0 Tobacco use; Z71.6 Tobacco abuse counseling
CPT/HCPCS: 36415; 80048; 80061; 80076; 83735; 84439; 84443; 85025

== ENCOUNTER 2025-04-29 12:33 | Emergency (ER) | payer OTHER, SELFPAY ==
[2025-04-29 12:33] VITALS: BP 172/95; PULSE 59; RESP 20; TEMP 36.6; O2SAT 98; BMI 35.0
--- NOTE | 2025-04-29 12:33 | ECG_ITS ---
APPROVED REPORT Exam: Resting ECG HR:53 bpm ECG Measurements Heart Rate 53 AXES IN 143 P 29 QRSd 109 QRS 24 QT 448 T 28 QTc 432 Conclusion SINUS BRADYCARDIA INCOMPLETE RIGHT BUNDLE BRANCH BLOCK [90+ ms QRS DURATION, TERMINAL R IN V1/V2, 40+ ms S IN I/aVL/V4/V5/V6] BORDERLINE ECG UNCONFIRMED REPORT Sinus bradycardia with right bundle branch block. No ST elevation or depression Electronically signed by : RAFAEL FUNK, 04/30/2025 07:31:04
--- NOTE | 2025-04-29 12:36 | XR_ITS ---
FINAL REPORT TECHNIQUE: Single view chest CLINICAL HISTORY: chest pain COMPARISON: 01/11/2023 FINDINGS: A single view of the chest was obtained. The heart and mediastinum are within normal limits. The lungs are clear. There is no pneumothorax. IMPRESSION: No acute cardiopulmonary process. Reviewed, Interpreted and Dictated by Yaron Virgen MD Transcribed by Daniela Reina Authenticated and [facility]
[2025-04-29 12:39] VITALS: PULSE 59
--- NOTE | 2025-04-29 12:40 | CT_ITS ---
FINAL REPORT TECHNIQUE: Postcontrast axial images of the chest were performed in a CTA protocol. This study was performed with techniques to keep radiation doses as low as reasonably achievable, (ALARA). Individualized dose reduction technique using automated exposure control or adjustment of mA and/or kV according to the patient's size were employed. CLINICAL HISTORY: pain in back/chest FINDINGS: Thyroid is mildly enlarged. The heart is normal in size. No adenopathy is identified. No pleural or pericardial effusion is identified. The thoracic aorta is normal in caliber with no focal aneurysm or dissection identified. There is no filling defect to suggest pulmonary embolism. There are mild edematous changes. Lungs are otherwise clear without mass or infiltrate. The images of the upper abdomen are unremarkable. IMPRESSION: No evidence for PE, aneurysm or dissection on this exam. Reviewed, Interpreted and Dictated by Yaron Virgen MD Transcribed by Daniela Reina Authenticated and [facility]
--- NOTE | 2025-04-29 12:44 | PC.NURSE ---
XR AT BEDSIDE
[2025-04-29 12:45] LABS: Hematocrit 40.5 % (37.0-47.0); Hemoglobin 13.8 g/dL (12.2-16.2); Immature Granulocytes % 0.2 %; Mean Corpuscular HGB Conc 34.1 g/dL (31.8-35.4); Mean Corpuscular Hemoglobin 31.6 pg (27.0-31.2); Mean Corpuscular Volume 92.7 fl (81-99); Nucleated Red Blood Cells % 0 %; Platelet Count 194 K/mm3 (142-424); Red Blood Count 4.37 M/mm3 (4.20-5.40); Red Cell Distribution Width-SD 43.5 fL; White Blood Count 8.9 K/mm3 (4.8-10.8)
[2025-04-29] MEDS: FAMOTIDINE 20MG/2ML VIAL 20 MG IV (12:46)
[2025-04-29] MEDS: SODIUM CHLORIDE 0.9% 10ML VIAL 8 ML IV (12:47)
[2025-04-29] MEDS: ONDANSETRON 4MG/2ML VIAL 4 MG IV (12:47)
[2025-04-29] MEDS: MORPHINE 2MG/ML SYRINGE 2 MG IV (12:47)
--- NOTE | 2025-04-29 12:50 | HMH.EDCP ---
Discharge Plan Disposition Patient Disposition: Home, Self-Care Prescriptions Prescriptions: No Action carvedilol 6.25 mg tablet 6.25 mg PO BID Qty: 180 3RF atorvastatin 80 mg tablet 80 mg PO DAILY Qty: 30 11RF furosemide 40 mg tablet See Rx Instructions .ROUTE .COMPLEX Qty: 90 4RF Dose Instruction: TAKE 1 TABLET BY MOUTH DAILY Rx Instructions: TAKE 1 TABLET BY MOUTH DAILY lisinopril 20 mg tablet See Rx Instructions .ROUTE .COMPLEX Qty: 90 3RF Dose Instruction: TAKE 1 TABLET BY MOUTH DAILY Rx Instructions: TAKE 1 TABLET BY MOUTH DAILY pantoprazole 40 mg tablet,delayed release (DR/EC) See Rx Instructions .ROUTE .COMPLEX Qty: 90 3RF Dose Instruction: TAKE 1 TABLET BY MOUTH DAILY FOR GERD Rx Instructions: TAKE 1 TABLET BY MOUTH DAILY FOR GERD aspirin 81 mg tablet,chewable 81 mg PO DAILY Qty: 100 3RF ezetimibe [Zetia] 10 mg tablet 10 mg PO DAILY Qty: 90 1RF Referrals Follow up/Referrals: Adarsh Ventura MD [Staff Physician, Cardiology] - See instructions Provider,ReferralMD [Referring, Medical] - See instructions Clinical Impressions Clinical Impression: Chest pain Qualifiers: Chest pain type: other chest pain Qualified Code(s): R07.89 - Other chest pain Instructions Patient Instructions: DI for Chest Pain Print Language Print Language: Mosotho Discharge ED Provider: Amilcar Chiang HPI <Chandni Taylor (ED), PLANT SCIENCE PROFESSOR - Last Filed: 04/29/25 14:18> General Chief Complaint: Chest Pain Stated Complaint: Chest Pain Time Seen by Provider: 04/29/25 12:36 Mode of Arrival: Ambulatory Source of Information: Patient Description of Symptoms (Recalled from ER Triage Doc. by RN): pt reports that she had heartburn tuesday and seen her PCP which gave her pepcid, yesterday she began having chest tightness and has gotten worse this morning while getting ready for work. pt also reports getting clammy and sweaty History of Present Illness HPI narrative: 60-year-old female presents to the ED today for chest pressure. She states that this pressure also goes to her left shoulder blade. Patient states that she started with some heartburn on Tuesday morning. She made an appointment with her primary care provider and her blood pressure was high at that appointment. They did an EKG and she says she does not know anything about that. She slept all day Tuesday. Got up Tuesday and felt okay and then this morning she got up and was clammy and sweaty. She says she started with this chest pressure and pain in her shoulder blade. She denies any shortness of air. Patient has history of hypertension hypokalemia, and CAD. Patient is on carvedilol, Lasix, aspirin, Protonix and atorvastatin. She has had [address] Ventura. She arrives today with blood pressure elevated at 172/95. Otherwise stable and afebrile. Patient appears well, no diaphoresis at this time. Related Data Previous Rx's ?Medication ?Instructions ?Recorded aspirin 81 mg chewable tablet 81 mg PO DAILY #100 tabs 08/28/24 atorvastatin 80 mg tablet 80 mg PO DAILY Cholesterol #30 tabs 09/27/24 carvedilol 6.25 mg tablet 6.25 mg PO BID #180 tabs 09/27/24 furosemide 40 mg tablet See Rx Instructions .Route 09/27/24 .COMPLEX #90 tabs lisinopril 20 mg tablet See Rx Instructions .Route 09/27/24 .COMPLEX #90 tabs pantoprazole 40 mg tablet,delayed See Rx Instructions .Route 09/27/24 release .COMPLEX #90 tabs ezetimibe 10 mg tablet (Zetia) 10 mg PO DAILY #90 tabs 03/13/25 Allergies Allergy/AdvReac Type Severity Reaction Status Date / Time No Known Allergies Allergy Verified 03/28/25 13:07 [facility] <Chandni Taylor (ED), PLANT SCIENCE PROFESSOR - Last Filed: 04/29/25 14:18> [facility] Disclaimer: The information contained in this section may have been updated after the patient was seen, as this information can be updated by other users. Medical History Sinus bradycardia Tobacco abuse counseling Tobacco abuse HHD (hypertensive heart disease) HLD (hyperlipidemia) CAD (coronary artery disease) Social History Smoking Status: Former smoker tobacco type: cigarettes packs per day: 1 second hand exposure: Yes alcohol intake: never substance use type: denies use current occupational status: other Travel in the last 8 weeks?: None housing: house current occupational exposures/hazards: No caffeine: Yes Other Medical History Have you received the Flu Vaccine for this season: No Have you received the Pneumonia Vaccine: No <Chandni Taylor (ED), PLANT SCIENCE PROFESSOR - Last Filed: 04/29/25 14:18> ROS Obtained: Yes Systems reviewed as appropriate & no additional complaints except as documented Constitutional Constitutional: Reports as per HPI Physical Exam <Chandni Taylor (ED), PLANT SCIENCE PROFESSOR - Last Filed: 04/29/25 14:18> General General appearance: alert Head Head exam: atraumatic and normocephalic Eye Eye exam: Present normal appearance, PERRL and EOMI ENT ENT exam: Present normal oropharynx and mucous membranes moist Neck Neck exam: Present full ROM and trachea midline Respiratory Respiratory exam: Present normal lung sounds bilaterally Cardiovascular Cardiovascular exam: Present regular rate, normal rhythm, normal heart sounds, +S1 and +S2 Abdominal Exam Abdominal exam: Present soft and normal bowel sounds Extremities Exam Extremities exam: Present normal inspection, full ROM and normal capillary refill Neurological Exam Neurological exam: Present alert, oriented X3 and normal gait Skin Skin exam: Present warm, dry and intact HEART Score <Chandni Taylor (ED), PLANT SCIENCE PROFESSOR - Last Filed: 04/29/25 14:18> HEART Score HEART Score assessment performed?: Yes History (anamnesis): Slightly suspicious ECG: Normal Age: 45-65 years Risk factors: 1-2 risk factors Troponin: </= normal limit HEART Score: 2 <Amilcar Chiang MD - Last Filed: 04/29/25 19:42> HEART Score HEART Score: 2 Critical Care <Chandni Taylor (ED), PLANT SCIENCE PROFESSOR - Last Filed: 04/29/25 14:18> Critical Care Time Critical Care Time: No Medical Decision Making <Chandni Taylor (ED), PLANT SCIENCE PROFESSOR - Last Filed: 04/29/25 14:18> Ramiro Inquiry Pt receiving controlled substance: No Ramiro was queried for this patient: No Vital Signs Vital Signs: 04/29/25 12:33 04/29/25 12:39 04/29/25 13:01 Temperature 97.9 F Temperature Source Oral Pulse Rate 59 L 51 L Pulse Rate [Right] 59 L Respiratory Rate 20 18 Blood Pressure 171/88 H Blood Pressure [Right Arm] 172/95 H Blood Pressure Mean 108 Blood Pressure Mean [Right Arm] 120 02 Sat by Pulse Oximetry 98 98 Oxygen Delivery Method Room Air 04/29/25 13:31 04/29/25 14:01 04/29/25 14:17 Temperature 98.1 F Temperature Source Pulse Rate 54 L 53 L 54 L Pulse Rate [Right] Respiratory Rate 18 18 16 Blood Pressure 168/89 H 136/82 136/82 Blood Pressure [Right Arm] Blood Pressure Mean 115 100 Blood Pressure Mean [Right Arm] 02 Sat by Pulse Oximetry 98 98 Oxygen Delivery Method Room Air Lab Data Labs: Lab Results 04/29/25 12:32: WBC 8.9, RBC 4.37, Hgb 13.8, Hct 40.5, MCV 92.7, MCH 31.6 H, MCHC 34.1, RDW 12.7, Plt Count 194, MPV 11.5 H, Neut % (Auto) 58.0, Lymph % (Auto) 31.3, Garrard % (Auto) 8.8, Eos % (Auto) 1.1, Baso % (Auto) 0.6, Neut # (Auto) 5.1, Lymph # (Auto) 2.8, Garrard # (Auto) 0.8, Eos # (Auto) 0.1, Baso # (Auto) 0.1, D-Dimer 0.82 H, Sodium 138, Potassium 3.6, Chloride 103, Carbon Dioxide 28, Anion Gap 10.6, BUN 17, Creatinine 1.10 H, Estimated Creat Clear 80, Estimated GFR 51 L, Est GFR ( Amer) 62, Glucose 102 H, Calcium 9.6, Magnesium 1.9, Total Bilirubin 1.3, AST 28, ALT 17, Alkaline Phosphatase 101, Troponin I < 0.01, NT-Pro-B Natriuret Pep 92.3, Total Protein 7.6, Albumin 4.7, Globulin 2.9, Albumin/Globulin Ratio 1.6, Lipase 163, HCV Ab ZUNILDA w/Rflx PCR Qn Negative, HIV Ag/Ab Combo Qual Negative 04/29/25 12:32 04/29/25 12:32 Response Orders (Tests/Meds): ED MEDICATIONS Discontinued Medications Generic Name Dose Route Start Last Admin Trade Name Freq PRN Reason Stop Dose Admin Famotidine 20 mg 04/29/25 12:36 04/29/25 12:46 Famotidine 20mg/2ml Vial IV 04/29/25 12:37 20 mg ONCE ONE Administration Iopamidol 80 ml 04/29/25 13:10 04/29/25 13:11 Iopamidol-370 (76%);100ml Bottle IV 04/29/25 13:11 80 ml ONCE ONE Administration Morphine Sulfate 2 mg 04/29/25 12:36 04/29/25 12:47 Morphine 2mg/Ml Syringe IV 04/29/25 12:37 2 mg ONCE ONE Administration Ondansetron HCl 4 mg 04/29/25 12:36 04/29/25 12:47 Ondansetron 4mg/2ml Vial IV 04/29/25 12:37 4 mg ONCE ONE Administration Sodium Chloride 8 ml 04/29/25 12:36 04/29/25 12:47 Sodium Chloride 0.9% 10ml Vial IV 05/29/25 12:35 8 ml NEEDED PRN Administration dilute pepcid Sodium Chloride 10 ml 04/29/25 13:10 04/29/25 13:11 Sodium Chloride 0.9% 10ml Syr (Rad Only) IV 05/29/25 13:09 10 ml NEEDED PRN Administration Maintain IV Site Sodium Chloride 50 ml 04/29/25 13:10 04/29/25 13:11 0.9 % Sodium Chloride 50 Ml Vial IV 04/29/25 13:11 50 ml ONCE ONE Administration ORDERS Category Date Time Status CTA Chest [CT angio chest - dissection] Stat Cat Scan 04/29/25 12:40 Completed Chest XR -- portable [XR chest portable] Stat Exams 04/29/25 12:36 Completed BNP [NT Pro Brain Natriuretic Pep.] Stat Lab 04/29/25 12:32 Completed CBC [Complete Blood Count Auto Diff] Stat Lab 04/29/25 12:32 Completed Comprehensive Metabolic Panel Stat Lab 04/29/25 12:32 Completed D-Dimer Stat Lab 04/29/25 12:32 Completed HIV Combo Stat Lab 04/29/25 12:32 Completed Hepatitis C Ab Qual. W/ RFX Stat Lab 04/29/25 12:32 Completed Lipase Stat Lab 04/29/25 12:32 Completed Magnesium Stat Lab 04/29/25 12:32 Completed Trop I [Troponin I] Stat Lab 04/29/25 12:32 Completed MDM Narrative Medical Decision Narrative: patient is a 60-year-old female presenting to the emergency department for evaluation of chest pressure that also causes pain in her left shoulder blade.. Patient arrives with elevated blood pressure 172/95 otherwise afebrile and stable heart rate. She appears well with no diaphoresis. No current nausea or vomiting. Patient has taken all of her meds today including her aspirin. Differential diagnosis includes ACS, reflux, dissection, among others.. Workup will be conducted with hematologic labs, specific imaging. Initial inventions include crystalloid bolus, analgesics. Initial workup reviewed by me hematologic labs are remarkable for elevated D-dimer but CTA was negative, elevated creatinine 1.1. Imaging informally interpreted by me and remarkable for nothing acute. Please see radiology report for formal read. Patient has been stable throughout ER visit. Her blood pressure has lowered it is 136/92 at this time. She feels much better. We discussed following up with Dr. Ventura within a few days. Patient is safe for discharge home. Discussed plan and discharge with Dr. Chiang <Amilcar Chiang MD - Last Filed: 04/29/25 19:42> Vital Signs Vital Signs: 04/29/25 12:33 04/29/25 12:39 04/29/25 13:01 Temperature 97.9 F Temperature Source Oral Pulse Rate 59 L 51 L Pulse Rate [Right] 59 L Respiratory Rate 20 18 Blood Pressure 171/88 H Blood Pressure [Right Arm] 172/95 H Blood Pressure Mean 108 Blood Pressure Mean [Right Arm] 120 02 Sat by Pulse Oximetry 98 98 Oxygen Delivery Method Room Air 04/29/25 13:31 04/29/25 14:01 04/29/25 14:17 Temperature 98.1 F Temperature Source Pulse Rate 54 L 53 L 54 L Pulse Rate [Right] Respiratory Rate 18 18 16 Blood Pressure 168/89 H 136/82 136/82 Blood Pressure [Right Arm] Blood Pressure Mean 115 100 Blood Pressure Mean [Right Arm] 02 Sat by Pulse Oximetry 98 98 Oxygen Delivery Method Room Air Lab Data Labs: Lab Results 04/29/25 12:32: WBC 8.9, RBC 4.37, Hgb 13.8, Hct 40.5, MCV 92.7, MCH 31.6 H, MCHC 34.1, RDW 12.7, Plt Count 194, MPV 11.5 H, Neut % (Auto) 58.0, Lymph % (Auto) 31.3, Garrard % (Auto) 8.8, Eos % (Auto) 1.1, Baso % (Auto) 0.6, Neut # (Auto) 5.1, Lymph # (Auto) 2.8, Garrard # (Auto) 0.8, Eos # (Auto) 0.1, Baso # (Auto) 0.1, D-Dimer 0.82 H, Sodium 138, Potassium 3.6, Chloride 103, Carbon Dioxide 28, Anion Gap 10.6, BUN 17, Creatinine 1.10 H, Estimated Creat Clear 80, Estimated GFR 51 L, Est GFR ( Amer) 62, Glucose 102 H, Calcium 9.6, Magnesium 1.9, Total Bilirubin 1.3, AST 28, ALT 17, Alkaline Phosphatase 101, Troponin I < 0.01, NT-Pro-B Natriuret Pep 92.3, Total Protein 7.6, Albumin 4.7, Globulin 2.9, Albumin/Globulin Ratio 1.6, Lipase 163, HCV Ab ZUNILDA w/Rflx PCR Qn Negative, HIV Ag/Ab Combo Qual Negative Response Orders (Tests/Meds): ED MEDICATIONS Discontinued Medications Generic Name Dose Route Start Last Admin Trade Name Freq PRN Reason Stop Dose Admin Famotidine 20 mg 04/29/25 12:36 04/29/25 12:46 Famotidine 20mg/2ml Vial IV 04/29/25 12:37 20 mg ONCE ONE Administration Iopamidol 80 ml 04/29/25 13:10 04/29/25 13:11 Iopamidol-370 (76%);100ml Bottle IV 04/29/25 13:11 80 ml ONCE ONE Administration Morphine Sulfate 2 mg 04/29/25 12:36 04/29/25 12:47 Morphine 2mg/Ml Syringe IV 04/29/25 12:37 2 mg ONCE ONE Administration Ondansetron HCl 4 mg 04/29/25 12:36 04/29/25 12:47 Ondansetron 4mg/2ml Vial IV 04/29/25 12:37 4 mg ONCE ONE Administration Sodium Chloride 8 ml 04/29/25 12:36 04/29/25 12:47 Sodium Chloride 0.9% 10ml Vial IV 05/29/25 12:35 8 ml NEEDED PRN Administration dilute pepcid Sodium Chloride 10 ml 04/29/25 13:10 04/29/25 13:11 Sodium Chloride 0.9% 10ml Syr (Rad Only) IV 05/29/25 13:09 10 ml NEEDED PRN Administration Maintain IV Site Sodium Chloride 50 ml 04/29/25 13:10 04/29/25 13:11 0.9 % Sodium Chloride 50 Ml Vial IV 04/29/25 13:11 50 ml ONCE ONE Administration ORDERS Category Date Time Status CTA Chest [CT angio chest - dissection] Stat Cat Scan 04/29/25 12:40 Completed Chest XR -- portable [XR chest portable] Stat Exams 04/29/25 12:36 Completed BNP [NT Pro Brain Natriuretic Pep.] Stat Lab 04/29/25 12:32 Completed CBC [Complete Blood Count Auto Diff] Stat Lab 04/29/25 12:32 Completed Comprehensive Metabolic Panel Stat Lab 04/29/25 12:32 Completed D-Dimer Stat Lab 04/29/25 12:32 Completed HIV Combo Stat Lab 04/29/25 12:32 Completed Hepatitis C Ab Qual. W/ RFX Stat Lab 04/29/25 12:32 Completed Lipase Stat Lab 04/29/25 12:32 Completed Magnesium Stat Lab 04/29/25 12:32 Completed Trop I [Troponin I] Stat Lab 04/29/25 12:32 Completed MDM Narrative Medical Decision Narrative: patient is a 60-year-old female presenting to the emergency department for evaluation of chest pressure that also causes pain in her left shoulder blade.. Patient arrives with elevated blood pressure 172/95 otherwise afebrile and stable heart rate. She appears well with no diaphoresis. No current nausea or vomiting. Patient has taken all of her meds today including her aspirin. Differential diagnosis includes ACS, reflux, dissection, among others.. Workup will be conducted with hematologic labs, specific imaging. Initial inventions include crystalloid bolus, analgesics. Initial workup reviewed by me hematologic labs are remarkable for elevated D-dimer but CTA was negative, elevated creatinine 1.1. Imaging informally interpreted by me and remarkable for nothing acute. Please see radiology report for formal read. Patient has been stable throughout ER visit. Her blood pressure has lowered it is 136/92 at this time. She feels much better. We discussed following up with Dr. Ventura within a few days. Patient is safe for discharge home. Discussed plan and discharge with Dr. Chiang I was consulted by the SHARIF, and we discussed the complexity of the problems being addressed. I approve the treatment and management plan for this patient's care in the emergency department, thus performing a substantive portion of the medical decision making. Amilcar Chiang MD
--- OUTSIDE RECORDS SUMMARY | 2025-04-29 12:51 | XMS_ITS | Referral Summary ---
Author Organization [employer] ([place], [place], [place], [place]) Address [address] [place] [address] Care Team Providers Care Tie Puller Name Role Phone Feli Kaplan Primary Care Provider Unavailabl e Social History Tobacco Use Types Packs/Day Years Used Date Smoking Tobacco: Never Assessed Food Insecurity Answer Date Recorded Food run out past 12 months Not on file 11/10 Food did not last past 12 months Not on file 11/25/2023 Employment Answer Date Recorded Help finding and keeping a job Not on file 0 11/25/2023 Family and Community Support Answer Esa e Recorded Help with Day to Day Activities Not on file 11/25/2023 Feeling Lonely or Isolated Not on file 11/25 Educational Attainment Answer Date Rohit rded Speak language other than Bolivian at home Not on file 11/25/2023 Want help with school or training Not on file 11/25/2023 Substance Use Answer Date Recorded Used prescription meds for non-medical reasons N ot on file 11/25/2023 Used illegal drugs past 12 months Not on file 11/25/2023 Comments Unknown Sex and Gender Information Value Date Recorded Sex Assigned at Not on file Legal Sex Female 5:33 PM CDT Gender Identity Not on file Sexual Orientation Not on file Plan of Treatment Not on file Insurance [facility] [facility] Care Teams Tie Puller Relationship Specialty Start Date End Date Feli Kaplan PCP - General 11/28/23
--- OUTSIDE RECORDS SUMMARY | 2025-04-29 12:51 | XMS_ITS | Encounter Summary ---
Author Organization [employer] ([place], [place], [place], [place]) Address [address] [place] [address] Care Team Providers Care Roll Edge Machine Operator Name Role Phone Feli Kaplan Primary Care Provider Unavailabl e Reason for Referral * Ultrasound (Routine) - Closed Specialty Diagnoses / Procedures Referred By Vanesa t Referred To Contact Diagnoses Thyrotoxicosis without thyroid storm, unspecified thyrotoxicosis type Procedures US thyroid Lou Ly APRN [address] [address] Phone: tel: fax: Referral ID Status Reason Start Date Expiration Date Visits Re quested Visits Authorized [id number] Closed 11/25/2023 05/23/2024 1 1 Encounter Details Date Type Department Care Team (Late st Contact Info) Description 11/25/2023 Outside Orders [facility] Central Scheduling [address] [place] [address] Lou Ly APRN [address] [address] Thyrotoxicosis without thyroid storm, unspecified thyrotoxicosis type (Primary Dx) Social History Tobacco Use Types Packs/Day Years [...] Date Rohit rded Speak language other than Kazakh at home Not on file 11/25/2023 Want [...] on file Sexual Orientation Not on file documented as of this encounter Plan of Treatment Not on file documented as of this encounter Results * US thyroid (11/29/2023 3:41 PM EST) Anatomical Region Laterality Modality Thyroid, Neck Ultrasound 11/30/2023 9:31 AM EST Impressions 11/30/2023 9:37 AM EST 1. Ti RADS category 4 right thyroid nodule. FNA recommended. 2. Ti RADS category 4 right isthmic nodule. Follow-up recommended based on size. Images reviewed, interpreted, and dictated by Sharonda Merino MD Narrative 11/30/2023 9:37 AM EST ULTRASOUND THYROID INDICATION: Thyrotoxicosis without thyroid storm. TECHNIQUE: Sonographic images of the thyroid gland were obtained in the longitudinal and transverse planes. COMPARISON: None. FINDINGS: The right lobe of the thyroid gland measures 2.4 x 5.5 x 1.7 cm. There are several nodules within the right thyroid. A hypoechoic, upper pole nodule is wider than tall and measures 1.8 cm in greatest dimension. A second, 4 mm hypoechoic nodule may be a tiny colloid cyst. The left lobe of the thyroid gland measures 1.8 x 4.5 x 1.6 cm. The gland is homogeneous without dominant cystic or solid nodule. There are no pathologic calcifications. The isthmus measures 3 mm. There is a 1.2 cm Ti RADS category 4 lesion in the right isthmus. Procedure Note Sharonda Merino MD - 11/30/2023 ULTRASOUND THYROID INDICATION: Thyrotoxicosis without thyroid storm. TECHNIQUE: Sonographic images of the thyroid gland were obtained in the longitudinal and transverse planes. COMPARISON: None. FINDINGS: The right lobe of the thyroid gland measures 2.4 x 5.5 x 1.7 cm. There are several nodules within the right thyroid. A hypoechoic, upper pole nodule is wider than tall and measures 1.8 cm in greatest dimension. A second, 4 mm hypoechoic nodule may be a tiny colloid cyst. The left lobe of the thyroid gland measures 1.8 x 4.5 x 1.6 cm. The gland is homogeneous without dominant cystic or solid nodule. There are no pathologic calcifications. The isthmus measures 3 mm. There is a 1.2 cm Ti RADS category 4 lesion in the right isthmus. IMPRESSION: 1. Ti RADS category 4 right thyroid nodule. FNA recommended. 2. Ti RADS category 4 right isthmic nodule. Follow-up recommended based on size. Images reviewed, interpreted, and dictated by Sharonda Merino MD us Lou Ly APRN IMG US ORDERABLES Final Re sult documented in this encounter Visit Diagnoses Diagnosis Thyrotoxicosis without thyroid storm, unspecified thyrotoxicosis type- Primary Thyrotoxicosis without thyroid storm, unspecified thyrotoxicosis type documented in this encounter Care Teams Roll Edge Machine Operator Relationship Specialty Start Date End Date Feli Kaplan PCP - General 11/28/23 documented as of this encounter
--- OUTSIDE RECORDS SUMMARY | 2025-04-29 12:51 | XMS_ITS | Clinical Summary ---
Author Organization [facility] Address [address] [place] [address] Care Team Providers Care Boring Mill Set Up Operator Vertical Name Role Phone Feli Tolentino APRN Primary Care Provider + [phone] Allergies No known active allergies Medications pantoprazole (Protonix) 40 MG EC tablet Take 1 tablet (40 mg) by mouth 1 (one) time each day. Active lisinopril 20 MG tablet Take 1 tablet (20 mg) by mouth 1 (one) time each day. Active furosemide (Lasix) 40 MG tablet Take 1 tablet (40 mg) by mouth 1 (one) time each day. Active clopidogrel (Plavix) 75 MG tablet 1 (one) time each day. Active carvedilol (Coreg) 6.25 MG tablet Take 1 tablet (6.25 mg) by mouth Daily. Active atorvastatin (Lipitor) 80 MG tablet Take 1 tablet (80 mg) by mouth 1 (one) time each day. Active ASPIRIN 81 MG chewable tablet 1 (one) time each day. Active ezetimibe (Zetia) 10 MG tablet 1 (one) time each day. Active Family History Medical History Relation Name Comments Diabetes Mother Fibromyalgia Mother Hyperlipidemia Mother Hypertension Mother Neuropathy Mother Relation Name Status Comments Mother Social History Tobacco Use Types Packs/Day Years Used Date Smoking Tobacco: Every Day Cigarettes Smokeless Tobacco: Never Tobacco Cessation:Ready to Q uit: Not Asked; Counseling Given: Not Answered Comments:10 cigs daily. Alcohol Use Standard Drinks/Week Comments Not Currently 0 (1 standard drink = 0.6 oz pur e alcohol) PHQ-2 Answer Date Recorded Patient Health Questionnaire-2 Score 0 04/26/2024 Comments Unknown Sex and Gender Information Value Date Recorded Sex Assigned at Not on file Legal Sex Female 7:57 PM EDT Gender Identity Not on file Sexual Orientation Not on file Last Filed Vital Signs Vital Sign Reading Time Taken Comments Blood Pressure 126/77 04/26/2024 8:58 AM EDT Pulse 51 04/26/2024 8:58 AM EDT Temperature - - Respiratory Rate - - Oxygen Saturation - - Inhaled Oxygen Concentration - - Weight 79.4 kg (175 lb 0.7 oz) 04/26/2024 8:58 A M EDT Height 162.6 cm (5' 4 ) 04/26/2024 8:58 AM EDT Body Mass Index 30.05 04/26/2024 8:58 AM EDT Plan of Treatment Health Maintenance Due Date Last Done Comments [facility]-HIV Screening 1965 [facility]-Hepatitis C Screening 1965 [facility]-Infant/Child/Adol SDOH Screenings 1965 [facility]- SDOH Screenings 02/26/1984 [facility]-Adult SDOH Screenings 02/26/1984 [facility]-DTaP,Tdap,and Td Vaccine s (1 - Tdap) 1985 [facility]-Hepatitis B Vaccines (1 of 3 - 19+ 3-dose series) 1985 [facility]-Pap Smear 12/08/1996 12/08/1993 [facility]-Cervical Cancer Screening 12/08/1998 [facility]-HPV/Cotest 12/08/1998 12/08/1993 CT Colonography 2011 Colonoscopy 2011 FIT-DNA 2011 FIT 2011 FOBT 2011 Sigmoidoscopy 2011 [facility]-Colorectal Cancer Screening 2011 [facility]-Breast Cancer Screening 02/26/2016 [facility]-Pneumococcal Vaccine: 50 + Years (1 of 1 - PCV) 02/26/2016 [facility]-Zoster Vaccines (1 of 2) 02/26/2016 [id number] Vaccine (3 - 2023- season) 2024 06/11/2021, 05/21/2021 [facility]-Depression Screening 04/26/2025 04/26/2024 [facility]-Influenza Vaccine (#1) 2025 [facility]-Obesity Intervention Completed 04/26/2024 HPV Vaccines Aged Out No longer eligi ble based on patient's age to complete this topic [facility]-HIB Vaccines Aged Out No longer e ligible based on patient's age to complete this topic [facility]-Hepatitis A Vaccines Aged Out No longer eligible based on patient's age to complete this topic [facility]-IPV Vaccines Aged Out No longer e ligible based on patient's age to complete this topic [facility]-Rotavirus Vaccines Aged Out No lo nger eligible based on patient's age to complete this topic Procedures Procedure Name Priority Date/Time Associated Diagnosis Comments CYTO DATA CONVERSION Routine 12/08/1993 12:00 AM EST from Last 3 Months or Most Recently Relevant to Health Maintenance Results * Cytology (12/08/1993 12:00 AM EST) 12/08/1993 12/08/1993 Narrative SUNQUEST - 12/10/1993 12:00 AM EST [facility] MR #: [id number] [facility] [address] [place], [place] [address] 1965 (Age: 28) FW Collect Date: 12/08/1993 00:00 Receipt Date: 12/08/1993 00:00 Page 1 DEPARTMENT OF PATHOLOGY AND LABORATORY MEDICINE CYTOPATHOLOGY REPORT Email: [email or web address] [phone] * Converted Case * This report may not match the original report format ATTENDING MD/Practitioner: Edna Manzano MD Service: COMPETENCY EVALUATED NURSE AIDE Location: Reported: 12/10/1993 00:00 Collected: 12/08/1993 00:00 INTERPRETATION CERVICAL SCRAPE/ENDOCERVICAL BRUSH INFLAMMATORY CHANGE. NO DYSPLASTIC OR MALIGNANT CELLS SEEN. SATISFACTORY FOR INTERPRETATION. Electronically Signed Out KELLEY Epperson (ASCP) Tamar Arauz MD Cervical cytology is a screening test primarily for squamous cancers and precursors and has associated false negative and positive results. New technologies such as liquid based sampling may decrease but will not eliminate all false negative results. Regular screening and follow-up of unexplained clinical signs and symptoms are recommended to minimize false negative results. Please see the ASCCP website (www.asccp.org) for followup recommendations. If HPV testing was requested, correlation with the results is suggested (please call Microbiology at [phone] for results). CLINICAL INFORMATION: Menstrual History: {Not Provided} Date of Last Menstrual Period: {Not Provided} SPECIMEN DESCRIPTION: A: CERVICAL/VAGINAL SMEAR, PAP ICD: F: {Not Entered} SNOMED CODES: 1; [id number] [id number] In cases where a pathologist has signed out the report, the service has been rendered in part by a resident. The signing pathologist has performed and is responsible for the reported pathologic evaluation. Feli Manzano MD LAB PATHOLOGY ORDERABLES Chasitty fan Result SUNQUEST from Last 3 Months or Most Recently Relevant to Health Maintenance Insurance [employer] [facility] MEDICAID Care Teams Boring Mill Set Up Operator Vertical Relationship Specialty Start Date End Date Feli Tolentino APRN [facility] [address] [place] [id number] PCP - General 04/26/24
--- OUTSIDE RECORDS SUMMARY | 2025-04-29 12:51 | XMS_ITS | Clinical Summary ---
Author Organization [facility] Address [address] [place] [address] Phone Care Team Providers Care Chief Technologist Name Role Phone Unavailable Primary Care Provider Unavailabl e Social History Tobacco Use Types Packs/Day Years Used Date Smoking Tobacco: Never Assessed Comments No Sex and Gender Information Value Date Recorded Sex Assigned at Not on file Legal Sex Female 9:33 AM EST Gender Identity Not on file Sexual Orientation Not on file Obstetrics History Para Term AB IAB SAB Ectopic Multiple Livin g Live Births 1 Last Filed Vital Signs Vital Sign Reading Time Taken Comments Blood Pressure - - Pulse - - Temperature - - Respiratory Rate - - Oxygen Saturation - - Inhaled Oxygen Concentration - - Weight 86.2 kg (190 lb) 11/12/2024 11:53 AM EST Height 162.6 cm (5' 4 ) 11/12/2024 11:53 AM EST Body Mass Index 32.61 11/12/2024 11:53 AM EST Plan of Treatment Health Maintenance Due Date Last Done Comments Annual Wellness Exam 1969 DTaP/TDaP/Td (1 - Tdap) 1985 Hepatitis B Vaccine (1 of 3 - + 3-dose series) 1985 Cervical Cancer Screening 1987 Pap Smear 1987 HPV/Pap Cotest 02/26/1996 Cologuard 2011 Colon Cancer Screening 2011 Colonoscopy 2011 FIT 2011 Sigmoidoscopy 2011 Virtual Colonography 2011 Pneumococcal Vaccine 50+ (1 of 1 - PCV) 02/26/2016 Zoster (1 of 2) 02/26/2016 COVID-19 Vaccine (3 - 2023-2 5 season) 2024 06/11/2021, 05/21/2021 Influenza Vaccine (#1) 2025 08/14/2024 Breast Cancer Screening 11/12/2026 11/12/2024 Meningococcal B Vaccine Aged Out No l onger eligible based on patient's age to complete this topic Procedures Procedure Name Priority Date/Time Associated Diagnosis Comments MM MAMMO DIGITAL MARIE SCREEN BILAT Routine 11/12/2024 11:53 AM EST Encounter for screening mammogram for malignant neoplasm of breast from Last 3 Months or Most Recently Relevant to Health Maintenance Results * MM MAMMO DIGITAL MARIE SCREEN BILAT (11/12/2024 11:53 AM EST) Anatomical Region Laterality Modality Breast Bilateral Mammography 11/12/2024 11:5 3 AM EST Addenda Addendum by Franklin Romero MD on 11/30/2024 1:40 PM EST EXAM: MM MAMMO DIGITAL MARIE SCREEN BILAT EXAM DATE: 11/12/2024 11:53 AM ADDENDUM: Outside images now available from date 08/18/2018. No interval change and no change in recommendation. IMPRESSION: ACR BI-RADS Category 1 - Negative. RECOMMENDATION: 1: Routine screening mammogram in 1 year 2: COMMENTS: Impressions 11/28/2024 1:00 PM EST Negative ([id number]) RECOMMENDATION: Routine Screening Mammogram in 1 Year Bilateral . . COMMENTS: Narrative 11/28/2024 1:00 PM EST EXAM: MM MAMMO DIGITAL MARIE SCREEN BILAT EXAM DATE: 11/12/2024 11:53 AM INDICATION: Z12.31-Encounter for screening mammogram for malignant neoplasm of [id number] COMPARISON STUDIES: Compared with prior studies the most recent being No Qualifying Comparisons Found TISSUE DENSITY: There are scattered areas of fibroglandular density. FINDINGS: No mammographic evidence of malignancy. Procedure Note Franklin Romero MD - 11/28/2024 EXAM: MM MAMMO DIGITAL MARIE SCREEN BILAT EXAM DATE: 11/12/2024 11:53 AM INDICATION: Z12.31-Encounter for screening mammogram for malignantneoplasm of [id number] COMPARISON STUDIES: Compared with prior studies the most recent being No Qualifying Comparisons Found TISSUE DENSITY: There are scattered areas of fibroglandular density. FINDINGS: No mammographic evidence of malignancy. IMPRESSION: Negative ([id number]) RECOMMENDATION: Routine Screening Mammogram in 1 Year Bilateral . . COMMENTS: us Lou Ly AUTOTRANSFUSIONIST IMG MAMMOGRAPHY ORDERABLE S Edited Result - Final from Last 3 Months or Most Recently Relevant to Health Maintenance Insurance [facility] [employer] [place] [address]
--- OUTSIDE RECORDS SUMMARY | 2025-04-29 12:51 | XMS_ITS | Data Portability ---
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 Discussed risks/benefits and patient chooses to proceed with plan. If not improving may consider XR and physical therapy. Continue heat PRN. May also try OTC lidocaine patches. Follow up if no improvement or worsening and PRN. Not available 10/29/2024 10:45:40 04/26/2025 04/26/2025 Patient reports discomfort has decreased even during appointment after taking pepcid. Discussed reasons to seek emergency care, daughter lives is staying with her this weekend. States she will keep a blood pressure log and follow up next week with her primary care. [email or web address] Not available 04/26/2025 17:40:58 Plan of Treatment Reminders Order Date Submit Date Provider Last Modified By Organization Details Last Modified Time Details Appointments None recorded. Lab HbA1c (hemoglobin A1c), blood 2024 025 [facility] ([employer]), [address] [place], [address], 08:12:51 vitamin D, 25-hydroxy, total, serum [address] [employer] ([employer]), [address] [place], [address], 5 08:12:51 lipid panel, serum 2024 025 [facility] [place], [address], 5 08:12:50 HIV 1 + 2, meaningful use set 2024 025 [facility] [place], [address], 5 08:12:52 CMP, serum or plasma 2024 025 [facility] [place], [address], 5 08:12:49 CBC w/ auto diff 2024 025 [facility] [place], [address], 5 08:12:49 TSH + free T4, serum 2024 025 [facility] [address] [place] [address], [address], 5 08:12:48 surgical pathology study 2023 024 [facility] [address] [place] [address], [address], 4 13:08:25 Referral None recorded. Procedures biopsy skin shave (PROC) 2023 024 [email or web address] 1 Not available 10:48:07 Surgeries None recorded. Imaging electrocard iogram 2024 025 [facility], [address] [place] [address], [phone], 5 16:48:23 Medication Orders Depo-Medrol 80 mg/mL suspension for injection 2024 025 [email or web address] 1 Not available 15:57:36 tizanidine 4 mg tablet 2024 025 [facility], [address] [place] [address], [address], 17:01:50 Xylocaine 10 mg/mL (1 %) injection solution 2023 024 [email or web address] [facility], [address] [place] [address], [address], 16:13:58 Patient TargetsNo targets recorded. Patient Instructions Encounter Date Encounter Id Patient Instructions Last Modified By Organization Details Last Modified Time 10/25/2024 [id number] back care and preventing injuries: care instructions Not available 10/25/2024 16:42:25 getting back to normal after low back pain: care instructions Not available 10/25/2024 16:42:25 learning about relief for back pain Not available 10/25/2024 16:42:25 Reason for Referral None Reported. Results Created Date Observation Date Name Description Value Unit Range Abnormal Flag Note LastModifiedBy Organization Detail LastModifiedTime 08/17/2008/21/2024 PATHO LOGY BERNIE rivas Mater ial submi tted: . shoul lisa - RIGHT SHOUL LISA. Modif iers: right Not Available [facility] ([facility]) [address] [facility], [place], [address], 08/21/2024 13:08:25 08/17/2008/21/2024 PATHO LOGY REPOR Selina rivas Diagn osis: SKIN BIOPS Y, RIGHT SHOUL LISA: - KERAT IN ONLY. SEE DESCR IPTIO N. TMZ 08/21 0934 Local Not Available [facility] ([facility]) [address] [facility], [place], [address], 08/21/2024 13:08:25 08/17/20 24 08/21/2024 PATHO LOGY REPOR T . Commen t Elect enid brady d: . Alvarado bates MD, Dortches topat holog ist Not Available [facility] ([facility]) [address] [facility], [place], [address], 08/21/2024 13:08:25 08/17/20 24 08/21/2024 PATHO LOGY REPOR T . Commen t Gross descr iptio n: . RECEI ANKITA IN FORMA SONG LABEL ED WITH THE PATIE NTS NAME AND RIGH T FAREED LISA IS A 0.7 X 0.4 X 0.2 CM AGGRE GATE OF MULTI PLE IRREG ULAR FRAGM ENTS OF LEONARD BROWN TISSU E. SUBMI TTED ENTIR JAIDEN IN ONE CASSE TTE. MZH/B XS 08/20 1202 Local Not Available [facility] ([facility]) [address] [facility], [place], [address], 08/21/2024 13:08:25 08/17/20 24 08/21/2024 PATHO LOGY REPOR T . Commen t Micro scopi c: . SECTI ONS REVEA L EXCLU SIVEL Y KERAT IN WITHO UT VIABL E EPIDE RMIS OR DERMI S IN THE SAMPL E PRECL UDING A DEFIN ITIVE DIAGN OSIS. Not Available [facility] ([facility]) [address] [facility], [place], [address], 08/21/2024 13:08:25 08/17/20 24 08/21/2024 PATHO BRANDON Graff t Patho logis t provi ded ICD-1 0: D48.5 Not Available [facility] ([facility]) [address] [facility], [place], [address], 08/21/2024 13:08:25 08/17/20 24 08/21/2024 PATHO BRANDON Graff t CPT . 73281 1 Not Available [facility] ([facility]) [address] [facility], [place], [address], 08/21/2024 13:08:25 01/08/20 25 01/09/2025 TSH+F REE T4 TSH 0.605 uIU/m L 0.450- 4.500 normal Not Available [facility] ([facility]) [address] [place], [address], 01/09/2025 08:12:48 01/08/20 25 01/09/2025 TSH+F REE T4 T4,free(dire ct) 1.15 NG/dL 0.82-1 .77 normal Not Available [facility] ([facility]) [address] [facility], [place], [address], 01/09/2025 08:12:48 01/08/20 25 01/09/2025 CBC WITH DIFFE RENTI AL/PL ATELE T WBC 8.4 x10e3 /uL 3.4-10 .8 normal Not Available [facility] ([facility]) [address] [place], [address], 01/09/2025 08:12:49 01/08/20 25 01/09/2025 CBC WITH DIFFE RENTI AL/PL ATELE T RBC 4.02 x10e6 /uL 3.77-5 .28 normal Not Available [facility] ([facility]) [address] [place], [address], 01/09/2025 08:12:49 01/08/20 25 01/09/2025 CBC WITH DIFFE RENTI AL/PL ATELE T hemoglobin 12.7 g/dL 11.1-1 5.9 normal Not Available [facility] ([facility]) [address] [place], [address], 01/09/2025 08:12:49 01/08/20 25 01/09/2025 CBC WITH DIFFE RENTI AL/PL ATELE T hematocrit 38.4 % 34.0-4 6.6 normal Not Available [facility] ([facility]) [address] [place], [address], 01/09/2025 08:12:49 01/08/20 25 01/09/2025 CBC WITH DIFFE RENTI AL/PL ATELE T MCV 96 fL 79-97 normal Not Available [facility] ([facility]) [address] [place], [address], 01/09/2025 08:12:49 01/08/20 25 01/09/2025 CBC WITH DIFFE RENTI AL/PL ATELE T MCH 31.6 pg 26.6-3 3.0 normal Not Available [facility] ([facility]) [address] [place], [address], 01/09/2025 08:12:49 01/08/20 25 01/09/2025 CBC WITH DIFFE RENTI AL/PL ATELE T MCHC 33.1 g/dL 31.5-3 5.7 normal Not Available [facility] ([facility]) [address] [place], [address], 01/09/2025 08:12:49 01/08/20 25 01/09/2025 CBC WITH DIFFE RENTI AL/PL ATELE T RDW 13.0 % 11.7-1 5.4 Not Available [facility] ([facility]) [address] [place], [address], 01/09/2025 08:12:49 01/08/20 25 01/09/2025 CBC WITH DIFFE RENTI AL/PL ATELE T platelets 193 x10e3 /uL 150-45 0 normal Not Available [facility] ([facility]) [address] [facility], [place], [address], 01/09/2025 08:12:49 01/08/20 25 01/09/2025 CBC WITH DIFFE RENTI AL/PL ATELE T neutrophils 55 % not estab. normal Not Available [facility] ([facility]) [address] [facility], [place], [address], 01/09/2025 08:12:49 01/08/20 25 01/09/2025 CBC WITH DIFFE RENTI AL/PL ATELE T lymphs 32 % not estab. normal Not Available [facility] ([facility]) [address] [facility], [place], [address], 01/09/2025 08:12:49 01/08/20 25 01/09/2025 CBC WITH DIFFE RENTI AL/PL ATELE T monocytes 11 % not estab. normal Not Available [facility] ([facility]) [address] [facility], [place], [address], 01/09/2025 08:12:49 01/08/20 25 01/09/2025 CBC WITH DIFFE RENTI AL/PL ATELE T eos 1 % not estab. normal Not Available [facility] ([facility]) [address] [facility], [place], [address], 01/09/2025 08:12:49 01/08/20 25 01/09/2025 CBC WITH DIFFE RENTI AL/PL ATELE T basos 1 % not estab. normal Not Available [facility] ([facility]) [address] [facility], [place], [address], 01/09/2025 08:12:49 01/08/20 25 01/09/2025 CBC WITH DIFFE RENTI AL/PL ATELE T immature cells [employer]ERS' [employer]ENT Not Available [facility] ([facility]) [address] [place], [address], 01/09/2025 08:12:49 01/08/20 25 01/09/2025 CBC WITH DIFFE RENTI AL/PL ATELE T neutrophils (absolute) 4.6 x10e3 /uL 1.4-7. 0 normal Not Available [facility] ([facility]) [address] [place], [address], 01/09/2025 08:12:49 01/08/20 25 01/09/2025 CBC WITH DIFFE RENTI AL/PL ATELE T lymphs (absolute) 2.7 x10e3 /uL 0.7-3. 1 normal Not Available [facility] ([facility]) [address] [place], [address], 01/09/2025 08:12:49 01/08/20 25 01/09/2025 CBC WITH DIFFE RENTI AL/PL ATELE T monocytes(ab solute) 0.9 x10e3 /uL 0.1-0. 9 normal Not Available [facility] ([facility]) [address] [place], [address], 01/09/2025 08:12:49 01/08/20 25 01/09/2025 CBC WITH DIFFE RENTI AL/PL ATELE T eos (absolute) 0.1 x10e3 /uL 0.0-0. 4 normal Not Available [facility] ([facility]) [address] [place], [address], 01/09/2025 08:12:49 01/08/20 25 01/09/2025 CBC WITH DIFFE RENTI AL/PL ATELE T baso (absolute) 0.1 x10e3 /uL 0.0-0. 2 normal Not Available [facility] ([facility]) [address] [place], [address], 01/09/2025 08:12:49 01/08/20 25 01/09/2025 CBC WITH DIFFE RENTI AL/PL ATELE T immature granulocytes 0 % not estab. Not Available [facility] ([facility]) [address] [facility], [place], [address], 01/09/2025 08:12:49 01/08/20 25 01/09/2025 CBC WITH DIFFE RENTI AL/PL ATELE T immature grans (abs) 0.0 x10e3 /uL 0.0-0. 1 Not Available [facility] ([facility]) [address] [facility], [place], [address], 01/09/2025 08:12:49 01/08/20 25 01/09/2025 CBC WITH DIFFE RENTI AL/PL ATELE T NRBC [employer] AGENT Not Available [facility] ([facility]) [address] [facility], [place], [address], 01/09/2025 08:12:49 01/08/20 25 01/09/2025 CBC WITH DIFFE RENTI AL/PL ATELE T hematology comments: BU[employer]ERS' AGENT Not Available [facility] ([facility]) [address] [facility], [place], [address], 01/09/2025 08:12:49 01/08/20 25 01/09/2025 COMP. METAB OLIC PANEL (14) glucose 77 mg/dL 70-99 normal Not Available [facility] ([facility]) [address] [facility], [place], [address], 01/09/2025 08:12:49 01/08/20 25 01/09/2025 COMP. METAB OLIC PANEL (14) BUN 15 mg/dL 6-24 normal Not Available [facility] ([facility]) [address] [facility], [place], [address], 01/09/2025 08:12:49 01/08/20 25 01/09/2025 COMP. METAB OLIC PANEL (14) creatinine 1.15 mg/dL 0.57-1 .00 above high normal Not Available [facility] ([facility]) [address] [facility] [place], [address], 01/09/2025 08:12:49 01/08/20 25 01/09/2025 COMP. METAB OLIC PANEL (14) eGFR 55 mL/mi n/1.7 3 >59 below low normal Not Available [facility] ([facility]) [address] [facility] [place], [address], 01/09/2025 08:12:49 01/08/20 25 01/09/2025 COMP. METAB OLIC PANEL (14) BUN/creatini ne ratio 13 9-23 normal Not Available [facility] ([facility]) [address] [facility] [place], [address], 01/09/2025 08:12:49 01/08/20 25 01/09/2025 COMP. METAB OLIC PANEL (14) sodium 145 mmol/ L 134-14 4 above high normal Not Available [facility] ([facility]) [address] [facility] [place], [address], 01/09/2025 08:12:49 01/08/20 25 01/09/2025 COMP. METAB OLIC PANEL (14) potassium 4.1 mmol/ L 3.5-5. 2 normal Not Available [facility] ([facility]) [address] [facility] [place], [address], 01/09/2025 08:12:49 01/08/20 25 01/09/2025 COMP. METAB OLIC PANEL (14) chloride 106 mmol/ L 96-106 normal Not Available [facility] ([facility]) [address] [facility] [place], [address], 01/09/2025 08:12:49 01/08/20 25 01/09/2025 COMP. METAB OLIC PANEL (14) carbon dioxide, total 23 mmol/ L 20-29 normal Not Available [facility] ([facility]) [address] [place], [address], 01/09/2025 08:12:49 01/08/20 25 01/09/2025 COMP. METAB OLIC PANEL (14) calcium 9.0 mg/dL 8.7-10 .2 normal Not Available [facility] ([facility]) [address] [place], [address], 01/09/2025 08:12:49 01/08/20 25 01/09/2025 COMP. METAB OLIC PANEL (14) protein, total 6.6 g/dL 6.0-8. 5 normal Not Available [facility] ([facility]) [address] [place], [address], 01/09/2025 08:12:49 01/08/20 25 01/09/2025 COMP. METAB OLIC PANEL (14) albumin 4.2 g/dL 3.8-4. 9 normal Not Available [facility] ([facility]) [address] [place], [address], 01/09/2025 08:12:49 01/08/20 25 01/09/2025 COMP. METAB OLIC PANEL (14) globulin, total 2.4 g/dL 1.5-4. 5 Not Available [facility] ([facility]) [address] [place], [address], 01/09/2025 08:12:49 01/08/20 25 01/09/2025 COMP. METAB OLIC PANEL (14) bilirubin, total 0.3 mg/dL 0.0-1. 2 normal Not Available [facility] ([facility]) [address] [place], [address], 01/09/2025 08:12:49 01/08/20 25 01/09/2025 COMP. METAB OLIC PANEL (14) alkaline phosphatase 106 IU/L 44-121 normal Not Available [facility]) [address] [place], [address], 01/09/2025 08:12:49 01/08/20 25 01/09/2025 COMP. METAB OLIC PANEL (14) AST (SGOT) 13 IU/L 0-40 normal Not Available [facility] ([facility]) [address] [place], [address], 01/09/2025 08:12:49 01/08/20 25 01/09/2025 COMP. METAB OLIC PANEL (14) ALT (SGPT) 15 IU/L 0-32 normal Not Available [facility] ([facility]) [address] [place], [address], 01/09/2025 08:12:49 01/08/20 25 01/09/2025 LIPID PANEL cholesterol, total 140 mg/dL 100-19 9 normal Not Available [facility] ([facility]) [address] [place], [address], 01/09/2025 08:12:50 01/08/20 25 01/09/2025 LIPID PANEL triglyceride s 99 mg/dL 0-149 normal Not Available [facility] ([facility]) [address] [place], [address], 01/09/2025 08:12:50 01/08/20 25 01/09/2025 LIPID PANEL HDL cholesterol 66 mg/dL >39 normal Not Available [facility]) [address] [place], [address], 01/09/2025 08:12:50 01/08/20 25 01/09/2025 LIPID PANEL VLDL cholesterol abraham 18 mg/dL 5-40 Not Available [facility] ([facility]) [address] [place], [address], 01/09/2025 08:12:50 01/08/20 25 01/09/2025 LIPID PANEL LDL chol calc (rust) 56 mg/dL 0-99 Not Available [facility]) [address] [facility], [place], [address], 01/09/2025 08:12:50 01/08/20 25 01/09/2025 LIPID PANEL LDL calc comment: [employer]ENT Not Available [facility] ([facility]) [address] [facility], [place], [address], 01/09/2025 08:12:50 01/08/20 25 01/09/2025 HEMOG LOBIN A1C hemoglobin A1C 5.7 % 4.8-5. 6 above high normal Predi abete s: 5.7 - 6.4 Diabe clara: >6.4 Glyce chin contr ol for adult s with diabe clara: <7.0 Not Available [facility] ([facility]) [address] [facility], [place], [address], 01/09/2025 08:12:51 01/08/20 25 01/09/2025 VITAM IN D, 25-HY DROXY vitamin D, 25-hydroxy 9.8 NG/mL 30.0-1 00.0 below low normal Vitam in D defic iency has been defin ed by the Insti tute of Medic ine and an Endoc rine Socie ty pract ice guide line as a level of serum 25-OH vitam in D less than 20 ng/mL (1,2) . The Endoc rine Socie ty went on to community health er defin e vitam in D insuf ficie ncy as a level betwe en 21 and 29 ng/mL (2). 1. IOM (Inst itute of Medic ine). 2010. Dieta ry refer ence inteduardo es for calci um and D. Hema blue [place]: The Natio nal [facility] Press . 2. Sammi acevedo MF, Adriana díaz [place], Praful off-F ander i RAMIREZ, et al. Evalu ation , treat ment, and preve ntion of vitam in D defic iency : an Endoc rine Socie ty clini abraham pract ice guide line. JCEM. 2010; 96(7) :1911 -30. Not Available [facility] ([facility]) [address] [facility], [place], [address], 01/09/2025 08:12:51 01/08/20 25 01/09/2025 HIV AB/P2 4 AG WITH REFLE X HIV Ab/P24 Ag screen Non Reacti ve non reacti ve HIV-1 /HIV- 2 antib odies and HIV-1 p24 antig en were NOT detec arabella. There is no labor atory evide nce of HIV infec tion. HIV Negat satya Not Available [facility] ([facility]) [address] [facility], [place], [address], 01/09/2025 08:12:52 12/29/19 25 MAMMO , scree rosanne, digit al, bilat eral No observ ation record ed. [email or web address] [facility] [address], [place], [address], 01/01/2025 17:51:02 12/29/19 25 11/12/2024 MAMMO , scree rosanne, digit al, bilat eral No observ ation record ed. [email or web address] [facility] [address], [place], [address], 01/01/2025 17:45:58 02/29/20 25 09/27/2018 colon oscop y proce dure (PROC ) No observ ation record ed. [email or web address] Not Available 02/28 17:24:35 04/26/20 25 elect rocar diogr am No observ ation record ed. [email or web address] Not Available 2024 16:53:29 Result Notes None recorded. Problems Name Problem SNOMED Code Status Onset Date Resolution Date Notes Provider Name and Address Organization Details Recorded Time Pelvic and perineal pain 258393152 Completed 201708/24/2018 Problem Code: R10.2; Problem Code Type: ICD-10; Not Available [employer] 22:21:30 Female genital organ symptoms 590715419 Completed 201708/24/2018 Problem Code: 625.9; Problem Code Type: ICD-9; Not Available [facility] 2 22:21:30 Nicotine dependen ce 30686532 Active 2020 Problem Code: F17.200; Problem Code Type: ICD-10; Not Available [facility] 2 22:21:29 Hyperlip idemia 43280409 Active 2020 Problem Code: E78.5; Problem Code Type: ICD-10; Not Available [facility] 2 22:21:30 Otogenic otalgia 41414739 Completed 202003/28/2024 Ketty Curtis NP [address] [place] [address], [phone] , [employer] 4 13:11:08 Hyperten sive disorder 38978129 Active 2020 Problem Code: I10; Problem Code Type: ICD-10; Not Available [facility] 2 22:21:30 Gastroes ophageal reflux disease without esophagi tis 620581822 Active 2020 Not Available [facility] 2 22:21:30 Body mass index 25-29 - overweig ht 338242985 Active 2020 Problem Code: Z68.28; Problem Code Type: ICD-10; Not Available [facility] 2 22:21:30 Myositis 71683940 Completed 202003/28/2024 Problem Code: M60.9; Problem Code Type: ICD-10; Ketty Curtis NP [address] [place] [address], [phone] , [employer] 4 13:11:00 Chill [id number] Completed 202003/28/2024 Problem Code: R68.83; Problem Code Type: ICD-10; Ketty Curtis NP [address] [place] [address], [phone] , [employer] 4 13:10:53 Disorder of upper respirat ory system 266724259 Active 2021 Problem Code: J06.9; Problem Code Type: ICD-10; Not Available [facility] 2 22:21:30 Synovial cyst of right knee 35752737774 9104 Active 2022 CIARRA GODFREY PATIENT MANAGER-BC [address] [place] [address], [address] [place] [address] , [employer] 3 16:46:12 Dysfunct ion of eustachi an tube 57105076 Active 2023 Ketty Curtis NP [address] [place] [address], [address] [place] [address] , [employer] 4 13:29:33 Low back pain 062408606 Active 2024 Ketty Curtis NP [address] [place] [address], [address] [place] [address] , [employer] 5 16:37:32 Chest discomfo rt 558391589 Active 2024 ANDREA ALMAZAN NP [address] [place] [address], [address] [place] [address] , [employer] 5 16:36:32 Increase d blood pressure 45616311 Active 2024 ANDREA ALMAZAN NP [address] [place] [address], [address] [place] [address] , [employer] 5 17:41:24 Problem Notes None recorded. Procedures Surgical History Date Name Laterality Status Provider Name and Address Organization Details Recorded Time 12/29/19 25 Most Recent Mammogram completed Vidhya Whitlock [email or web address] 01/07/2025 15:52:49 08/10/20 18 tonsillectomy and adenoidectomy completed Not Available [facility] 06/15/2022 22:56:25 08/10/20 18 placement of stent in coronary artery completed HERNÁN ALFARO [email or web address] 07/28/2023 16:30:01 08/10/20 18 ligation of bilateral fallopian tubes completed Not Available [facility] 06/15/2022 22:56:26 Imaging Results None recorded. Procedure Notes None recorded. Medical Equipment None Reported. Allergies No known drug allergies Medications Name Sig Start Date Stop Date Status Note LastModified by Organization Details LastModified Time cyclobenzap rine 10 mg tablet Take 1 tablet 3 times a day by oral route as needed. 07/28 completed Not Available Not Available Not Available amoxicillin 500 mg capsule Take 1 capsule twice a day by oral route. 12/21 completed Not Available Not Available Not Available furosemide 40 mg tablet TAKE 1 TABLET BY MOUTH ONCE DAILY active Not Available Not Available No t Available atorvastati n 80 mg tablet TAKE 1 TABLET BY MOUTH ONCE DAILY active Not Available Not Available No t Available carvedilol 6.25 mg tablet Take 1 tablet every day by oral route. active Not Available Not Available No t Available tizanidine 4 mg tablet TAKE ONE TABLET BY MOUTH EVERY 6 HOURS FOR MUSCLE SPASMS. MAY cause drowsines s. active Not Available Not Available No t Available promethazin e 12.5 mg tablet Take 1 tablet 3 times a day by oral route as needed for 3 days. 12/21 completed Not Available Not Available Not Available lisinopril 20 mg tablet TAKE 1 TABLET BY MOUTH DAILY active Not Available Not Available No t Available prednisone 20 mg tablet take 1 tablet (20 mg) by oral route 3 times per day x3 days 07/28 completed Not Available Not Available Not Available clopidogrel 75 mg tablet TAKE 1 TABLET BY MOUTH DAILY FOR PLATELET INHIBITOR 03/28 completed Not Available Not Available Not Available Depo-Medrol 80 mg/mL suspension for injection Administe r 80 mg IM x 1 dose 01/07 completed Not Available Not Available Not Available potassium chloride ER 20 mEq tablet,exte nded release(par t/cryst) Take 1 tablet every day by oral route for 2 days. 10/25 completed Not Available Not Available Not Available Xylocaine 10 mg/mL (1 %) injection solution Take 0.5 mL by injection route. 10/25 completed Not Available Not Available Not Available meclizine 25 mg tablet 07/28 completed Not Available Not Available Not Available pantoprazol e 40 mg tablet,miguelina yed release Take 1 tablet every day by oral route for 30 days. active Not Available Not Available No t Available aspirin 81 mg chewable tablet Chew 1 tablet every day by oral route for 100 days. active Not Available Not Available No t Available Vitamin D2 1,250 mcg (50,000 unit) capsule TAKE ONE CAPSULE BY MOUTH every WEEK FOR 90 DAYS 04/26 completed Not Available Not Available Not Available lisinopril 40 mg tablet Take 1 tablet(s) by mouth daily 01/06 completed Not Available Not Available Not Available fluticasone propionate 50 mcg/actuati on nasal spray,suspe nsion instill 1 spray into each nostril once daily 10/25 completed Not Available Not Available Not Available loratadine 10 mg tablet TAKE ONE TABLET BY MOUTH EVERY DAY 10/25 completed Not Available Not Available Not Available ezetimibe 10 mg tablet active Not Available Not Available Not Available atorvastati n 08/10 completed Not Available Not Available Not Available Flagyl 01/06 completed Not Available Not Available Not Available Vitals Date Recorded Body height Body mass index (BMI) Body weight Heart rate Oxygen saturation Oxygen saturation in Arterial blood by Pulse oximetry Systolic And Diastolic Provider Name and Address Organization Details Last Updated DateTime 5 162.56 cm 33.7 kg/m2 11434.5 g 77 /min 93 % 93 % 128/82 mm[Hg] Shoshana Song [employer] 5 16:13:38 Date Recorded Body height Body mass index (BMI) Body weight Heart rate Oxygen saturation Oxygen saturation in Arterial blood by Pulse oximetry Systolic And Diastolic Provider Name and Address Organization Details Last Updated DateTime 5 162.56 cm 34.9 kg/m2 93593.6 5 g 61 /min 97 % 97 % 132/84 mm[Hg] Vidhya Whitlock [facility] 5 15:57:33 Date Recorded Body height Body mass index (BMI) Body weight Body temperature Oxygen saturation Oxygen saturation in Arterial blood by Pulse oximetry Heart rate Systolic And Diastolic Systolic And Diastolic Provider Name and Address Organization Details Last Updated DateTime 5 162.56 cm 35.1 kg/m2 02946.2 4 g 98 [degF] 94 % 94 % 57 /min 159/73 mm[Hg] 152/83 mm[Hg] Kathy Urbina [employer] 5 16:39:24 Date Recorded Body height Body mass index (BMI) Body weight Heart rate Oxygen saturation Oxygen saturation in Arterial blood by Pulse oximetry Systolic And Diastolic Provider Name and Address Organization Details Last Updated DateTime 4 162.56 cm 31.8 kg/m2 13498.5 9 g 68 /min 96 % 96 % 106/67 mm[Hg] Vidhya Whitlock [employer] 4 13:35:27 Date Recorded Body height Body mass index (BMI) Body weight Heart rate Oxygen saturation Oxygen saturation in Arterial blood by Pulse oximetry Systolic And Diastolic Provider Name and Address Organization Details Last Updated DateTime 4 162.56 cm 32 kg/m2 21838.9 3 g 54 /min 92 % 92 % 109/72 mm[Hg] Vidhya Whitlock [employer] 4 09:45:03 Social History Question Answer Notes LastModified by [employer] Details LastModified Time Tobacco Smoking Status Former Smoker Vidhya hull [email or web address] 01/07/2025 15:58:00 Do You Have An Advance Directive? No [email or web address] Information not available 07/28/2023 Is Your Home Air Conditioned? Yes [email or web address] Information not available 07/28/2023 Do You Wear A Helmet When Biking? No [email or web address] Information not available 10/25/2024 Are You Blind Or Do You Have Difficulty Seeing? No Information not available 01/04/2023 What Is Your Level Of Caffeine Consumption? Moderate [email or web address] Information not available 07/28/2023 Are You A Caregiver? No [email or web address] Information not available 07/28/2023 In The 14 Days Before Symptom Onset, Have You Had Close Contact With A Laboratory-confir med COVID-19 While That Case Was Ill? No [email or web address] Information not available 10/25/2024 In The 14 Days Before Symptom Onset, Have You Had Close Contact With A Person Who Is Under Investigation For COVID-19 While That Person Was Ill? No [email or web address] Information not available 10/25/2024 Have You Been To An Area Known To Be High Risk For COVID-19? No [email or web address] Information not available 07/28/2023 Are You Deaf Or Do You Have Serious Difficulty Hearing? No Information not available 01/04/2023 What Type Of Diet Are You Following? REGULAR Information not available 10/25/2024 Who Is Your Employer? [employer] [email or web address] Information not available 07/28/2023 Have There Been Any Changes To Your Family Or Social Situation? No [email or web address] Information no t available 07/28/2023 When Did You Quit Smoking? 1-5yearssinc elastcigaret te 09/2025 Information not available 01/07/2025 Are There Any Guns Present In Your Home? No [email or web address] Information not available 07/28/2023 What Was The Date Of Your Most Recent Tobacco Screening? 04/26/2025 [email or web address] Information not available 04/26/2025 What Is Your Current Pack Years? 30ormorepack years Information not available 01/07/2025 Do You Have Any Pets? Yes [email or web address] Information not available 07/28/2023 What Is Your Relationship Status? [email or web address] Information not available 07/28/2023 Do You Use Your Seat Belt Or Car Seat Routinely? Yes [email or web address] Information not available 10/25/2024 Are You Sexually Active? No [email or web address] Information not available 10/25/2024 Do You Have Smoke And Carbon Monoxide Detectors In Your Home? Yes [email or web address] Information not available 07/28/2023 Are You Passively Exposed To Smoke? Yes [email or web address] Information no t available 07/28/2023 Are There Any Smokers In Your House? Yes [email or web address] Information not available 07/28/2023 How Much Tobacco Do You Smoke? 0.5 PPD [email or web address] Information not available 07/28/2023 Do You Participate In Social Media? Yes [email or web address] Information not available 10/25/2024 Do You Use Sunscreen Routinely? No [email or web address] Information not available 07/28/2023 Has Tobacco Cessation Counseling Been Provided? Yes Information not available 11/22/2023 On What Date Was Tobacco Cessation Counseling Provided? 04/26/2025 [email or web address] Information not available 04/26/2025 How Many Years Have You Smoked Tobacco? 41 [email or web address] Information not available 07/28/2023 Have You Recently Traveled Abroad? No Information not available 07/28/2023 Do You Have Difficulty Walking Or Climbing Stairs? No Information not available 01/04/2023 Are You Currently In School? No Information not available 01/04/2023 Do You Have Any Dietary Restrictions? No Information not available 10/25/2024 Sex: Female Functional Status Question Answer Note LastModified by Organizat ion Details LastModified Time Do you use any illicit or recreational drugs? No [email or web address] Information not available 07/28/2023 Do you or have you ever used any other forms of tobacco or nicotine? No [email or web address] Information not available 07/28/2023 What is your level of alcohol consumption? None [email or web address] Information not available 07/28/2023 Are you currently employed? Yes Information not available 01/04/2023 Do you have transportation difficulties? Yes Information not available 01/04/2023 Are you able to walk? YESWOREST Information not available 01/04/2023 Do you have difficulty doing errands alone? No Information not available 01/04/2023 Are you able to care for yourself? Yes Information not available 01/04/2023 Do you have difficulty dressing or bathing? No Information not available 01/04/2023 Mental Status Question Answer Note LastModified by Organizat ion Details LastModified Time Do you feel stressed (tense, restless, nervous, or anxious, or unable to sleep at night)? [id number] [email or web address] Information not available 10/25/2024 Do you have difficulty concentrating, remembering or making decisions? No Information no t available 01/04/2023 Family History Relationship Description Onset Age of this Age Resolved Age Notes LastModified by Organization Details LastModified Time Maternal Grandmother Family history of congestive heart failure Not available 16:27:20 Mother Family history of hyperlipidem ia Not available 16:27:25 Mother Family history of diabetes mellitus type 2 [email or web address] Not available 16:27:29 Medical History Condition Response Coronary Artery Disease Y Emergency room visit since last appointm ent. N High Cholesterol Y Hospitalizations N Hypertension Y Gynecological History Statement/Question Response Date of Last Pap Smear Most Recent Mammogram 12/28/2024 Obstetrics History GPAL:G 0 P 0 0 0 0 Immunizations Vaccine Type Date Status Note Provider Nam e and Address Organization Details Recorded Time Influenza, split virus, trivalent, PF 08/14/2024 [facility], [facility] 08/14/2024 14:44:42 COVID-19, mRNA, LNP-S, PF, 30 mcg/0.3 mL dose 05/21/2021 completed HERNÁN hull, [place] [facility] 07/28/2023 16:20:23 COVID-19, mRNA, LNP-S, PF, 30 mcg/0.3 mL dose 06/11/2021 completed [place]ERN[place]N [place], [place] [facility] 07/28/2023 16:20:23 Past Encounters Encounter ID Performer Location Encounter Start Date Encounter Closed Date Diagnosis/Indication Diagnosis SNOMED-CT Code Diagnosis ICD10 Code Diagnosis Note [id number] Nicol Gates [address] 0 07/20/2022 09:16:09 07/20/2022 09:41:18 Gastroenteritis 04785788 K52.9 clear liquid diet, advance as tolerated, increase fluids, rest. report symptoms of dehydratio n ie. weakness, tachycardi a, palpitatio ns, dizzy [id number] Lou Ly [address] 0 09/23/2022 08:18:33 09/23/2022 08:57:50 Nasal congestion 02053764 R09.81 Acute sinusitis 19703836 J01.90 Body mass index 25-29 - overweight 030633285 Z68.27 [id number] Lou Ly [address] [place] [address] 12/21/2022 14:33:08 12/21/2022 15:15:51 Muscle pain 37835968 M79.10 Fatigue 75502625 R53.83 Body mass index 25-29 - overweight 250263089 Z68.27 [id number] [place] [address] 01/04/2023 10:33:23 01/04/2023 11:27:12 Neck pain 67423559 M54.2 Pain of ri ght shoulder blade 785796553 M25.511 Thoracic back pain 34889 8004 M54.6 Body mass index 25-29 - overweight 861590988 Z68.27 [id number] CIARRA DONAHUE, [facility] [place] [address] 07/28/2023 16:19:07 07/28/2023 17:07:40 Synovial cyst of right knee 2152641617 50141 M71.21 [id number] Lou Malachi [place] [id number] 11/22/2023 09:52:23 11/22/2023 10:43:30 Hyperthyroidism 99839039 E05.90 Hyperlipidemia 94219027 E78.5 Fatigue 77618210 R53.83 Body mass index 25-29 - overweight 392495147 Z68.27 [id number] Ketty Curtis, LUIS [place] [address] 03/28/2024 12:48:19 03/28/2024 13:35:56 Dysfunction of eustachian tube 86759884 H69.93 Body mass index 25-29 - overweight 407069950 Z68.29 [id number] Lou Malachi [place] [address] 08/14/2024 13:16:31 08/14/2024 14:46:24 Skin lesion 83495559 L98.9 Active or passive immunization 050345826 Z23 Body mass index 30+ - obesity 995094867 Z68.31 [id number] Lou Ly [place] [address] 0 08/17/2024 09:13:20 08/17/2024 10:19:34 Skin lesion 98595460 L98.9 Body mass index 30+ - obesity 589461349 Z68.31 [id number] Ketty Curtis, LUIS [place] [address] 10/25/2024 15:58:33 10/25/2024 17:08:08 Low back pain 429037302 M54.50 [id number] Lou Ly [place] [address] 0 01/07/2025 15:45:28 01/07/2025 16:32:16 Fatigue 63898714 R53.83 HIV screening 456328956 Z11.4 Hyperlipidemia 01546819 E78.5 Hyperglycemia 42890846 R 73.9 Vitamin D deficiency 347 39994 E55.9 Obesity 753041531 E66.9 Body mass index 30+ - obesity 529069390 Z68.31 [id number] ANDREA ALMAZAN, LU[place] [address] 04/26/2025 16:17:43 04/28/2025 10:54:44 Chest discomfort 867978812 R07.89 ECG with no acute changes Increased blood pressure 81300545 R03.0 Notes that her sodium intake has been elevated recently, especially today. Will keep a blood pressure log this week end and next week. Will follow up with primary care next week for blood pressure management . Health Concerns Section Related Observation LastModified by Organization Detai ls LastModified Time None Recorded Concern Status LastModified by Organization Details LastModified Time None Recorded Advance Directives Directive N: Payers Insurance Date Sequence Insurance Name Policy Number Policy Holley Covered Member ID Holley Member ID Guarantor Name 04/26/2025 1 [facility] Lynn Slaughter [id number] Lynn Slaughter Notes Date Note Type Note Provider Name and Address Organization Details Recorded Time 08/14/2024 text/html pt here today wi th c/o a growth to right shoulder. she doesnt know how long it has been there. she just noticed it but is worried about it because it is raised and brown. pt denies any pain, redness or drainage. on exam, pt has a brown, dry/crusty, raised small lesion to top of right shoulder. mole versus keratosis. pt to make a procedure appt and i will do a shave bx. Vidhya hull, [employer] 08/14/2024 14:44:49 08/17/2024 text/html pt here today fo r a removal of a skin growth that she is unknown of how long it has been there. pt denies any pain, redness or drainage. on exam, pt has a brown, crusty, raised growth to right shoulder. consent signed, lidocaine administered, shave bx preformed. pt tolerated procedure. educated pt on s/s of infection and to return if she experiences them. Vidhya hull, [employer] 08/17/2024 10:50:10 10/25/2024 text/html Patient presents for right lower back pain with sciatica. She has had this in the past but it usually resolves in a few days. This time, it has been 2 weeks. It is affecting her right lower back mostly but radiates down right leg. No n/t. States she just can't get comfortable. Heat does help while it is on there. Pain is 8/10 at worst. No known trauma or injury. Cannot take NSAIDs d/t blood thinner. Ketty Curtis, LUIS [address] [place], [address], [employer] 10/29/2024 10:46:06 01/07/2025 text/html 59 year old navi correa presents with concerns of weight gain. States she has gained about 30lbs in one year. 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 She does snack often on unhealthy foods. We discussed diet modifications and increasing activty. reviewed medication options but pt chooses not to pursue these at this time. She was seen last by donnie and endo last summer and has f/u with donnie in march. Doesnt have endo f/u but plans to make one. Today i recommend routine labs and for her to track caloric intake. she agrees. Lou yL APRN [address] [place], [address], [employer] 01/07/2025 16:54:53 04/26/2025 text/html Patient present today for history of chest discomfort. Started this morning after she at breakfast, where she had sausage. Has not treated heartburn as she did not have any medications with her at work. States that she continues to belch sausage taste from breakfast, and feels certain that it is reflux. Of note has had stents in the past and states that this does not feel like any of the cardiac related chest pain she has felt in the past. No chest pain, shortness of breath, diaphoresis. ANDREA ALMAZAN NP [address] [place], [address], [employer] 04/29/2025 08:20:26 OBGyn Episode No OBEpisode recorded.
--- OUTSIDE RECORDS SUMMARY | 2025-04-29 12:51 | XMS_ITS | Clinical Summary ---
Author Organization [employer] ([place], [place], [place], [place]) Address [address] [place] [address] Care Team Providers Care Animal Assisted Therapist Name Role Phone Feli Kaplan Primary Care [...] Date Rohit rded Speak language other than Montenegrin at home Not on file 11/25/2023 Want [...] Orientation Not on file Plan of Treatment Health Maintenance Due Date Last Done Comments CT Colonography 1966 Colonoscopy 1966 Colorectal Cancer Screening 1966 FOBT/FIT 1966 Fit-DNA (Cologuard) 1966 Sigmoidoscopy 1966 Depression Screening (12+) 1978 Tobacco Cessation Counseling and Screening (12+) 1978 HIV Screening 1981 Hepatitis C Screening 02/26/1984 DTAP/TDAP/TD VACCINES (1 - Tdap) 1985 Pap Smear 1987 Breast Cancer Screening 2006 Pneumococcal 50+ years (1 of 1 - PCV) 02/26/2016 Shingles Vaccine (Zoster) (1 of 2) 02/26/2016 Lipid Panel 06/01/2019 06/01/2014 COVID-19 VACCINE ( season) 06/10/202411/2020, 05/21/2021 Influenza Vaccine (#1) 2025 Insurance Care Teams Animal Assisted Therapist Relationship Specialty Start Date End Date Feli Kaplan PCP - General 11/28/23
--- OUTSIDE RECORDS SUMMARY | 2025-04-29 12:51 | XMS_ITS | Continuity of Care Document ---
Author Organization [place] - [place] [employer] [facility] Address [address] [place] [address] Care Team Providers Care Community Support Specialist Name Role Phone ZEINA AKERS Primary Care Provider STEFANY Franco Clearing Supervisor Assessment Encounter Date Assessment Date Assessment LastModified by Organization Details LastModified Time 04/26/2025 04/26/2025 Patient reports discomfort has decreased even during appointment after taking pepcid. Discussed reasons to seek emergency care, daughter buddy is staying with her this weekend. States she will keep a blood pressure log and follow up next week with her primary care. [email or web address] Not available 04/26/2025 17:40:58 Plan of Treatment Reminders Order Date Submit Date Provider Last Modified By Organization Details Last Modified Time Details Appointments None recorded. Lab None recorded. Referral None recorded. Procedures None recorded. Surgeries None recorded. Imaging electrocard iogram 2024 025 [facility], [facility]5 [facility], [place], [address], 16:48:23 Medication Orders None recorded. Patient TargetsNo targets recorded. Patient InstructionsNo instructions recorded. Reason for Referral None Reported. Results Created Date Observation Date Name Description Value Unit Range Abnormal Flag Note LastModifiedBy Organization Detail LastModifiedTime 04/26/20 25 elect rocar diogr am No observ ation record ed. [email or web address] Not Available 2024 16:53:29 Result Notes None recorded. Problems Name Problem SNOMED Code Status Onset Date Resolution Date Notes Provider Name and Address Organization Details Recorded Time Pelvic and perineal pain 998500985 Completed 201708/24/2018 Problem Code: R10.2; Problem Code Type: ICD-10; Not Available [facility] 22:21:30 Female genital organ symptoms 358830110 Completed 201708/24/2018 Problem Code: 625.9; Problem Code Type: ICD-9; Not Available [facility] 22:21:30 Nicotine dependen ce 63668035 Active 2020 Problem Code: F17.200; Problem Code Type: ICD-10; Not Available [facility] 22:21:29 Hyperlip idemia 41187409 Active 2020 Problem Code: E78.5; Problem Code Type: ICD-10; Not Available [facility] 22:21:30 Otogenic otalgia 81093050 Completed 202003/28/2024 Ketty Curtis NP [address] [place] [address], [address] , [employer] 4 13:11:08 Hyperten sive disorder 59150622 Active 2020 Problem Code: I10; Problem Code Type: ICD-10; Not Available [facility] 22:21:30 Gastroes ophageal reflux disease without esophagi tis 193173566 Active 2020 Not Available [facility] 22:21:30 Body mass index 25-29 - overweig ht 615533513 Active 2020 Problem Code: Z68.28; Problem Code Type: ICD-10; Not Available [facility] 22:21:30 Myositis 97057339 Completed 202003/28/2024 Problem Code: M60.9; Problem Code Type: ICD-10; Ketty Curtis NP [address] [place] [address], [phone] , [employer] 4 13:11:00 Chill 36707567 Completed 202003/28/2024 Problem Code: R68.83; Problem Code Type: ICD-10; Ketty Curtis NP [address] [place] [address], [address] , [employer] 4 13:10:53 Disorder of upper respirat ory system 860104588 Active 2021 Problem Code: J06.9; Problem Code Type: ICD-10; Not Available [facility] 2 22:21:30 Synovial cyst of right knee 83310134785 9104 Active 2022 CI[employer]RA DONAHUE [employer] [address] [place] [address], [address] , [employer] 3 16:46:12 Dysfunct ion of eustachi an tube 17779490 Active 2023 Ketty Curtis NP [address] [place] [address], [address] , [employer] 4 13:29:33 Low back pain 941955232 Active 2024 Ketty Curtis NP [address] [place] [address], [address] , [employer] 5 16:37:32 Chest discomfo rt 837241428 Active 2024 ANDREA ALMAZAN NP [address] [place] [address], [address] , [employer] 5 16:36:32 Increase d blood pressure 37213609 Active 2024 ANDREA ALMAZAN NP [address] [place] [address], [address] , [employer] 5 17:41:24 Problem Notes None recorded. Procedures Surgical History Date Name Laterality Status Provider Name and Address Organization Details Recorded Time 12/29/19 Most Recent Mammogram completed Vidhya Whitlock [employer] 01/07/2025 15:52:49 08/10/20 18 tonsillectomy and adenoidectomy completed Not Available [facility] 06/15/2022 22:56:25 08/10/20 18 placement of stent in coronary artery completed HERNÁN ALFARO [facility] [employer], [facility]. 07/28/2023 16:30:01 08/10/20 18 ligation of bilateral fallopian tubes completed Not Available [facility] 06/15/2022 22:56:26 Imaging Results None recorded. Procedure [...] Updated DateTime 5 162.56 cm 35.1 kg/m2 44144.2 4 g 98 [degF] 94 % 94 % 57 /min 159/73 mm[Hg] 152/83 mm[Hg] Kathy Urbina [employer] 5 16:39:24 Social History Question Answer Notes LastModified by Organizat ion Details LastModified Time Tobacco Smoking Status Former Smoker Vidhya hull, [employer] 01/07/2025 15:58:00 Do You Have An Advance Directive? No [email or web address] Information not available 07/28/2023 Is Your Home Air Conditioned? Yes [email or web address] Information not available 07/28/2023 Do You Wear A Helmet When Biking? No [email or web address] Information not available 10/25/2024 Are You Blind Or Do You Have Difficulty Seeing? No Information not available 01/04/2023 What Is Your Level Of Caffeine Consumption? Moderate [email or web address] Information not available 07/28/2023 Are You A Caregiver? No [email or web address] Information not available 07/28/2023 In The 14 Days Before Symptom Onset, Have You Had Close Contact With A Laboratory-confir med COVID-19 While That Case Was Ill? No [email or web address] Information not available 10/25/2024 In The 14 Days Before Symptom Onset, Have You Had Close Contact With A Person Who Is Under Investigation For COVID-19 While That Person Was Ill? No [email or web address] Information not available 10/25/2024 Have You Been To An Area Known To Be High Risk For COVID-19? No [email or web address] Information not available 07/28/2023 Are You Deaf Or Do You Have Serious Difficulty Hearing? No Information not available 01/04/2023 What Type Of Diet Are You Following? REGULAR [email or web address] Information not available 10/25/2024 Who Is Your Employer? [employer] [email or web address] Information not available 07/28/2023 Have There Been Any Changes To Your Family Or Social Situation? No [email or web address] Information no t available 07/28/2023 When Did You Quit Smoking? 1-5yearssinc elastcigaret te 09/2025 Information not available 01/07/2025 Are There Any Guns Present In Your Home? No [email or web address] Information not available 07/28/2023 What Was The Date Of Your Most Recent Tobacco Screening? 04/26/2025 Information not available 04/26/2025 What Is Your Current Pack Years? 30ormorepack years Information not available 01/07/2025 Do You Have Any Pets? Yes [email or web address] Information not available 07/28/2023 What Is Your Relationship Status? [email or web address] Information not available 07/28/2023 Do You Use Your Seat Belt Or Car Seat Routinely? Yes [email or web address] Information not available 10/25/2024 Are You Sexually Active? No Information not available 10/25/2024 Do You Have Smoke And Carbon Monoxide Detectors In Your Home? Yes [email or web address] Information not available 07/28/2023 Are You Passively Exposed To Smoke? Yes [email or web address] Information no t available 07/28/2023 Are There Any Smokers In Your House? Yes [email or web address] Information not available 07/28/2023 How Much Tobacco Do You Smoke? 0.5 PPD [email or web address] Information not available 07/28/2023 Do You Participate In Social Media? Yes [email or web address] Information not available 10/25/2024 Do You Use Sunscreen Routinely? No [email or web address] Information not available 07/28/2023 Has Tobacco Cessation Counseling Been Provided? Yes Information not available 11/22/2023 On What Date Was Tobacco Cessation Counseling Provided? 04/26/2025 [email or web address] Information not available 04/26/2025 How Many Years Have You Smoked Tobacco? 41 [email or web address] Information not available 07/28/2023 Have You Recently Traveled Abroad? No [email or web address] Information not available 07/28/2023 Do You Have Difficulty Walking Or Climbing Stairs? No Information not available 01/04/2023 Are You Currently In School? No Information not available 01/04/2023 Do You Have Any Dietary Restrictions? No [email or web address] Information not available 10/25/2024 Sex: Female Functional Status Question Answer Note LastModified by Organizat ion Details LastModified Time Do you use any illicit or recreational drugs? No [email or web address] Information not available 07/28/2023 Do you or have you ever used any other forms of tobacco or nicotine? No [email or web address] Information not available 07/28/2023 What is your level of alcohol consumption? None [email or web address] Information not available 07/28/2023 Are you currently [...] anxious, or unable to sleep at night)? [id number] [email or web address] Information not available 10/25/2024 Do you have difficulty concentrating, remembering or making decisions? No Information no t available 01/04/2023 Family History Relationship Description Onset Age of this Age Resolved Age Notes LastModified by Organization Details LastModified Time Maternal Grandmother Family history of congestive heart failure [email or web address] Not available 16:27:20 Mother Family history of hyperlipidem ia [email or web address] Not available 16:27:25 Mother Family history of diabetes mellitus type 2 [email or web address] Not available 16:27:29 Medical History Condition Response [...] split virus, trivalent, PF 08/14/2024 completed Vidhya hull [place] [facility] [employer] 08/14/2024 14:44:42 COVID-19, mRNA, LNP-S, PF, 30 mcg/0.3 mL dose 05/21/2021 completed HERNÁN hull [employer] 07/28/2023 16:20:23 COVID-19, mRNA, LNP-S, PF, 30 mcg/0.3 mL dose 06/11/2021 completed HERNÁN ALFARO [address] [employer] 07/28/2023 16:20:23 Past Encounters Encounter ID Performer Location Encounter Start Date Encounter Closed Date Diagnosis/Indication Diagnosis SNOMED-CT Code Diagnosis ICD10 Code Diagnosis Note [id number] ANDREA ALMAZAN NP [address] [address] 04/26/2025 16:17:43 04/28/2025 10:54:44 Chest discomfort 415571653 R07.89 ECG with no acute changes Increased blood pressure 05239113 R03.0 Notes that her sodium intake has been elevated recently, especially today. Will keep a blood pressure log this week end and next week. Will follow up with primary care next week for blood pressure management . Health Concerns Section Related Observation LastModified by Organization Detai ls LastModified Time None Recorded Concern Status LastModified by Organization Details LastModified Time None Recorded Payers Encounter Date Sequence Insurance Name Policy Number Policy Holley Covered Member ID Holley Member ID Guarantor Name 04/26/2025 1 [facility] (MEDICAID HMO) Lynn Slaughter [id number] Lynn Slaughter Notes Date Note Type Note Provider Name and Address Organization Details Recorded Time 04/26/2025 text/html Patient present today for history [...] of breath, diaphoresis. ANDREA ALMAZAN NP [address] [place], [address], [facility] [place] [employer] 04/29/2025 08:20:26 OBGyn Episode No OBEpisode recorded.
--- OUTSIDE RECORDS SUMMARY | 2025-04-29 12:51 | XMS_ITS | Clinical Summary ---
Author Organization [facility] ystem Address [address] [place] [address] Care Team Providers Care Missing Persons Investigator Name Role Phone Unavailable Primary Care Provider Unavailabl e Social History Tobacco Use Types Packs/Day Years Used Date Smoking Tobacco: Never Assessed Abuse Screen Answer Date Recorded Unsafe at Home or Work/School Not on file Feels Threatened by Someone? Not on file 07/2023 Does Anyone Keep You from Co ntacting Others or Doint Things Outside the Home? Not on file 07/19/2023 Physical Sign of Abuse Present Not on file 1 Housing Stability Answer Date Recorded Current Living Arrangements Not on file 07/10 Potentially Unsafe Housing Conditions Not on elder e 07/19/2023 Family and Community Support Answer Esa e Recorded Help with Day-to-Day Activities Not on file 07/19/2023 Lonely or Isolated Not on file 07/19/2023 Employment Answer Date Recorded Do you want help finding or keeping work or a bright b? Not on file 07/19/2023 Disabilities Answer Date Recorded Concentrating, Remembering, or Making Decisions Difficulty Not on file 07/19/2023 Doing Errands Independently Difficulty Not on fi le 07/19/2023 Education Answer Date Recorded Help with school or training? Not on file Preferred Language Not on file 07/19/2023 Comments Unknown Sex and Gender Information Value Date Recorded Sex Assigned at Not on file Legal Sex Female 1:43 PM EDT Gender Identity Not on file Sexual Orientation Not on file Plan of Treatment Health Maintenance Due Date Last Done Comments ANNUAL PHYSICAL 1965 Annual Gynecologic Pelvic and Breast Exam 1965 HEPATITIS C SCREENING 1966 TDAP/TD VACCINES (1 - Tdap) 1985 MAMMOGRAM 2006 COLOGUARD 2011 COLON CANCER SCREENING 5 YEAR SIGMOIDOSCOPY 2011 COLONOSCOPY [address] CANCER SCREENING 2011 CT COLONOGRAPHY 2011 FECAL OCCULT BLOOD TEST 2011 FIT Testing (1 year) 2011 Pneumococcal Vaccine 50+ (1 of 1 - PCV) 02/26/2016 ZOSTER VACCINE (1 of 2) 02/26/2016 COVID-19 Vaccine (1 - 2023- season) 2024 INFLUENZA VACCINE 07/10/2025
[2025-04-29 12:54] LABS: Alanine Aminotransferase 17 U/L (12-78); Albumin Level 4.7 g/dl (3.5-5.0); Albumin/Globulin Ratio 1.6 (1.1-1.8); Alkaline Phosphatase 101 U/L (38-126); Anion Gap 10.6 mEq/L (5-15); Aspartate Amino Transferase 28 U/L (14-36); Bilirubin,Total 1.3 mg/dl (0.2-1.3); Blood Urea Nitrogen 17 mg/dl (7-17); Calcium 9.6 mg/dl (8.4-10.2); Carbon Dioxide 28 mmol/L (22.0-30.0); Chloride 103 mmol/L (98-107); Creatinine Clearance Estimated 80 mL/min (50-200); Creatinine,Serum 1.10 mg/dl (0.52-1.04); Estimated Glomerular Filt Rate 51 ml/min (>60); GFR (African American) 62 ML/MIN (>60); Globulin 2.9 g/dL (1.3-3.2); Glucose 102 mg/dl (74-100); Lipase 163 U/L (23-300); Magnesium 1.9 mg/dl (1.6-2.3); Potassium 3.6 mmoL/L (3.5-5.1); Sodium 138 mmol/L (136-145); Total Protein,Serum 7.6 g/dl (6.3-8.2)
[2025-04-29 13:00] LABS: D-Dimer 0.82 ug/mL (0.0-0.5)
[2025-04-29 13:01] VITALS: BP 171/88; PULSE 51; RESP 18; O2SAT 98
[2025-04-29 13:03] LABS: NT Pro Brain Natriuretic Pep. 92.3 pg/mL (0-125)
[2025-04-29 13:06] LABS: Troponin I < 0.01 ng/ml (0.00-0.034)
--- NOTE | 2025-04-29 13:07 | PC.NURSE ---
PT TO CT
[2025-04-29] MEDS: IOPAMIDOL-370 (76%);100ML BOTTLE 80 ML IV (13:11)
[2025-04-29] MEDS: 0.9 % SODIUM CHLORIDE 50 ML VIAL IV (13:11)
[2025-04-29] MEDS: SODIUM CHLORIDE 0.9% 10ML SYR (RAD ONLY) 10 ML IV (13:11)
[2025-04-29 13:31] VITALS: BP 168/89; PULSE 54; RESP 18; O2SAT 98
[2025-04-29 13:48] LABS: Hepatitis C Ab Qual. W/ RFX NEGATIVE (Negative)
[2025-04-29 14:01] VITALS: BP 136/82; PULSE 53; RESP 18; O2SAT 98
[2025-04-29 14:17] VITALS: BP 136/82; PULSE 54; RESP 16; TEMP 36.7; O2SAT 97
== END 2025-04-29 14:26 | disposition home or self-care (01) ==
PROVIDERS: Nurse Practitioner; Emergency Provider Student in an Organized Health Care Education/Training Program; PCP Nurse Practitioner
DX: R07.9 Chest pain, unspecified (principal); I10 Essential (primary) hypertension; E78.5 Hyperlipidemia, unspecified; Z87.891 Personal history of nicotine dependence
CPT/HCPCS: 71045; 71275; 80053; 83690; 83735; 83880; 84484; 85025; 85378; 86803; 87389; 93005; 96374; 96375; 99285; J2270; J2405; Q9967

== ENCOUNTER 2025-04-30 09:19 | Outpatient (CLI) | payer OTHER, SELFPAY ==
--- OUTSIDE RECORDS SUMMARY | 2025-04-30 09:26 | XMS_ITS | Clinical Summary ---
Author Organization [facility] Address [address] [place] [address] Care Team Providers Care Refractory Grinder Operator Name Role Phone Rajan Feli Christina APRN Primary Care Provider + [phone] Allergies No known active allergies Medications pantoprazole [...] 02/26/2016 UKY-Zoster Vaccines (1 of 2) 02/26/2016 [id number] Vaccine (3 - 2023- season) 2024 06/11/2021, [...] Narrative SUNQUEST - 12/10/1993 12:00 AM EST [facility] MR #: [id number] [facility] [address] [place], [place] [address] 1965 (Age: 28) FW Collect Date: 12/08/1993 00:00 Receipt Date: 12/08/1993 00:00 Page 1 DEPARTMENT OF PATHOLOGY AND LABORATORY MEDICINE CYTOPATHOLOGY REPORT Email: [email or web address] * Converted Case * This report may not match the original report format ATTENDING MD/Practitioner: Edna Manzano MD Service: STATION INSTALLATION SUPERVISOR Location: Reported: 12/10/1993 00:00 Collected: 12/08/1993 00:00 [...] results is suggested (please call Microbiology at [phone] for results). CLINICAL INFORMATION: Menstrual History: {Not Provided} Date of Last Menstrual Period: {Not Provided} SPECIMEN DESCRIPTION: A: CERVICAL/VAGINAL SMEAR, PAP ICD: F: {Not Entered} SNOMED CODES: 1; V5Q517 A85709 S76959 Q58906 In cases where a pathologist has signed out the report, the service has been rendered in part by a resident. The signing pathologist has performed and is responsible for the reported pathologic evaluation. Feli Manzano MD LAB PATHOLOGY ORDERABLES Chastity fan Result SUNQUEST from Last 3 Months or Most Recently Relevant to Health Maintenance Insurance [employer] [facility] MEDICAID Care Teams Refractory Grinder Operator Relationship Specialty Start Date End Date Feli Tolentino APRN [facility]ly [facility] [address] [place] [id number] PCP - General 04/26/24
--- OUTSIDE RECORDS SUMMARY | 2025-04-30 09:26 | XMS_ITS | Referral Summary ---
Author Organization [employer] ([place], [place], [place], [place]) Address [address] [place] [address] Care Team Providers Care Stove Refinisher Name Role Phone Feli Kaplan Primary Care [...] Date Rohit rded Speak language other than Sierra Leonean at home Not on file 11/25/2023 Want [...] of Treatment Not on file Insurance [employer] [facility] Care Teams Stove Refinisher Relationship Specialty Start Date End Date Feli Kaplan PCP - General 11/28/23
--- OUTSIDE RECORDS SUMMARY | 2025-04-30 09:26 | XMS_ITS | Clinical Summary ---
Author Organization [facility] ystem Address [address] [place] [address] Care Team Providers Care Water Quality Analyst Name Role Phone Unavailable Primary Care Provider [...]
--- OUTSIDE RECORDS SUMMARY | 2025-04-30 09:26 | XMS_ITS | Encounter Summary ---
Author Organization [facility] ([place], [place], [place]) Address [address] [place] [address] Care Team Providers Care Court Liaison Name Role Phone Feli Kaplan Primary Care Provider Unavailabl e Reason for Referral * Ultrasound (Routine) - Closed Specialty Diagnoses / Procedures Referred By Vanesa t Referred To Contact Diagnoses Thyrotoxicosis without thyroid storm, unspecified thyrotoxicosis type Procedures US thyroid Lou Ly APRN [address] [address] Phone: tel: fax: Referral ID Status Reason Start Date Expiration Date Visits Re quested Visits Authorized [id number] Closed 11/25/2023 05/23/2024 1 1 Encounter Details Date Type Department Care Team (Late st Contact Info) Description 11/25/2023 Outside Orders [facility] Central Scheduling [address] [place] [address] Lou Ly APRN [address] [address] Thyrotoxicosis without thyroid storm, unspecified [...] Date Rohit rded Speak language other than Nepalese at home Not on file 11/25/2023 Want [...] type documented in this encounter Care Teams Court Liaison Relationship Specialty Start Date End Date Feli Kaplan PCP - General 11/28/23 documented as of this encounter
--- OUTSIDE RECORDS SUMMARY | 2025-04-30 09:26 | XMS_ITS | Clinical Summary ---
Author Organization [facility] Address [address] [facility] [address] [place] [address] Phone Care Team Providers Care Hotel Housekeeper Name Role Phone Unavailable Primary Care Provider [...] COMMENTS: Impressions 11/28/2024 1:00 PM EST Negative ([id number]) RECOMMENDATION: Routine Screening Mammogram in 1 Year Bilateral . . COMMENTS: Narrative 11/28/2024 1:00 PM EST EXAM: MM MAMMO DIGITAL MARIE SCREEN BILAT EXAM DATE: 11/12/2024 11:53 AM INDICATION: Z12.31-Encounter for screening mammogram for malignant neoplasm of txxour-YMQ-18-CM COMPARISON STUDIES: Compared with prior studies the most recent being No Qualifying Comparisons Found TISSUE DENSITY: There are scattered areas of fibroglandular density. FINDINGS: No mammographic evidence of malignancy. Procedure Note Franklin Romero MD - 11/28/2024 EXAM: MM MAMMO DIGITAL MARIE SCREEN BILAT EXAM DATE: 11/12/2024 11:53 AM INDICATION: Z12.31-Encounter for screening mammogram for malignantneoplasm of updfdh-SJU-65-CM COMPARISON STUDIES: Compared with prior studies the most recent being No Qualifying Comparisons Found TISSUE DENSITY: There are scattered areas of fibroglandular density. FINDINGS: No mammographic evidence of malignancy. IMPRESSION: Negative ([id number]) RECOMMENDATION: Routine Screening Mammogram in 1 Year Bilateral . . COMMENTS: us Lou Ly CLAY PLANT TREATER IMG MAMMOGRAPHY ORDERABLE S Edited Result - Final from Last 3 Months or Most Recently Relevant to Health Maintenance Insurance [facility] [place] [id number]
--- OUTSIDE RECORDS SUMMARY | 2025-04-30 09:26 | XMS_ITS | Clinical Summary ---
Author Organization [facility] ([place], [place], [place], [place]) Address [address] [place] [address] Care Team Providers Care Intelligence Specialist Name Role Phone Feli Kaplan Primary Care [...] Date Rohit rded Speak language other than Tunisian at home Not on file 11/25/2023 Want [...] Influenza Vaccine (#1) 2025 Insurance Care Teams Intelligence Specialist Relationship Specialty Start Date End Date Feli Kaplan PCP - General 11/28/23
[2025-04-30 09:45] LABS: Hematocrit 39.1 % (37.0-47.0); Hemoglobin 12.7 g/dL (12.2-16.2); Immature Granulocytes % 0.3 %; Mean Corpuscular HGB Conc 32.5 g/dL (31.8-35.4); Mean Corpuscular Hemoglobin 30.5 pg (27.0-31.2); Mean Corpuscular Volume 94.0 fl (81-99); Nucleated Red Blood Cells % 0 %; Platelet Count 171 K/mm3 (142-424); Red Blood Count 4.16 M/mm3 (4.20-5.40); Red Cell Distribution Width-SD 43.9 fL; White Blood Count 7.0 K/mm3 (4.8-10.8)
[2025-04-30 10:16] LABS: Alanine Aminotransferase 15 U/L (12-78); Albumin Level 4.3 g/dl (3.5-5.0); Alkaline Phosphatase 89 U/L (38-126); Anion Gap 9.0 mEq/L (5-15); Aspartate Amino Transferase 22 U/L (14-36); Bilirubin,Direct 0.5 mg/dl (0.0-0.4); Bilirubin,Indirect 0.6 mg/dL (0.0-0.9); Bilirubin,Total 1.1 mg/dl (0.2-1.3); Bilirubin,Unconjugated 0.7 mg/dL (0.0-1.1); Blood Urea Nitrogen 19 mg/dl (7-17); Calcium 9.2 mg/dl (8.4-10.2); Carbon Dioxide 29 mmol/L (22.0-30.0); Chloride 104 mmol/L (98-107); Cholesterol 143 mg/dl (140-200); Creatinine,Serum 1.20 mg/dl (0.52-1.04); Estimated Glomerular Filt Rate 46 ml/min (>60); GFR (African American) 56 ML/MIN (>60); Glucose 99 mg/dl (74-100); HDL Cholesterol 55 mg/dl (40-60); Magnesium 2.0 mg/dl (1.6-2.3); Potassium 4.0 mmoL/L (3.5-5.1); Sodium 138 mmol/L (136-145); Total Protein,Serum 6.8 g/dl (6.3-8.2); Triglycerides 96 mg/dl (30-150)
[2025-04-30 10:18] LABS: Free T4 (Free Thyroxine) 1.18 ng/dl (0.78-2.19)
[2025-04-30 10:46] LABS: Thyroid Stimulating Hormone 0.45 uIU/mL (0.465-4.68)
== END 2025-04-30 23:59 | disposition home or self-care (01) ==
LOC: LAB 09:20
PROVIDERS: PCP Nurse Practitioner; Visit Provider Nurse Practitioner
DX: I25.10 Atherosclerotic heart disease of native coronary artery without angina pectoris (principal); I11.9 Hypertensive heart disease without heart failure; E78.2 Mixed hyperlipidemia
CPT/HCPCS: 36415; 80048; 80061; 80076; 83735; 84439; 84443; 85025

== ENCOUNTER 2025-05-03 09:00 | Outpatient (CLI) | payer OTHER, SELFPAY ==
--- OUTSIDE RECORDS SUMMARY | 2025-05-03 09:07 | XMS_ITS | Continuity of Care Document ---
Author Organization [place] - [employer] [facility] Address [address] [place] [id number] Care Team Providers Care Housecleaner Name Role Phone ZEINA AKERS Primary Care Provider STEFANY Franco Business Librarian Assessment Encounter Date Assessment Date Assessment LastModified [...] None recorded. Imaging electrocard iogram 2024 025 [email or web address] 1 [facility], [address] [place] [address], [place], [address], 11:58:20 Medication Orders None recorded. Patient TargetsNo targets recorded. Patient InstructionsNo instructions recorded. Reason for Referral None Reported. Results Created Date Observation Date Name Description Value Unit Range Abnormal Flag Note LastModifiedBy Organization Detail LastModifiedTime 04/26/20 elect rocar diogr am No observ ation record ed. [email or web address] Not Available 2024 16:53:29 04/29/20 25 04/29/2025 imagi ng/di agnos tic resul t No observ ation record ed. [facility] [address], [place], [address], 04/29/2025 13:39:10 04/30/20 25 04/29/2025 imagi ng/di agnos tic resul t No observ ation record ed. [facility] [address], [place], [address], 04/30/2025 07:34:01 Result Notes None recorded. Problems Name Problem SNOMED Code Status Onset Date Resolution Date Notes Provider Name and Address Organization Details Recorded Time Pelvic and perineal pain 351166811 Completed 201708/24/2018 Problem Code: R10.2; Problem Code Type: ICD-10; Not Available [facility] 22:21:30 Female genital organ symptoms 865708300 Completed 201708/24/2018 Problem Code: 625.9; Problem Code Type: ICD-9; Not Available [facility] 22:21:30 Nicotine dependen ce 51896577 Active 2020 Problem Code: F17.200; Problem Code Type: ICD-10; Not Available [facility] 22:21:29 Hyperlip idemia 86269384 Active 2020 Problem Code: E78.5; Problem Code Type: ICD-10; Not Available [facility] 22:21:30 Otogenic otalgia 80569753 Completed 202003/28/2024 Ketty Curtis NP [address] [place] [address], [address] , [facility] [employer] 4 13:11:08 Hyperten sive disorder 73480220 Active 2020 Problem Code: I10; Problem Code Type: ICD-10; Not Available [facility] 22:21:30 Gastroes ophageal reflux disease without esophagi tis 161222031 Active 2020 Not Available [facility] 22:21:30 Body mass index 25-29 - overweig 111796303 Active 2020 Problem Code: Z68.28; Problem Code Type: ICD-10; Not Available [facility] 22:21:30 Myositis 04528669 Completed 202003/28/2024 Problem Code: M60.9; Problem Code Type: ICD-10; Ketty Curtis NP [address] [place] [address], [address] , [employer] 4 13:11:00 Chill 08713235 Completed 202003/28/2024 Problem Code: R68.83; Problem Code Type: ICD-10; Ketty Curtis NP [address] [place] [address], [address] , [employer] 4 13:10:53 Disorder of upper respirat ory system 098057265 Active 2021 Problem Code: J06.9; Problem Code Type: ICD-10; Not Available [facility] 2 22:21:30 Synovial cyst of right knee 29401428188 9104 Active 2022 EDENILSON CROWLEY-BC [address] [place] [address], [address] , [employer] 3 16:46:12 Dysfunct ion of eustachi an tube 79111257 Active 2023 Ketty Curtis NP [address] [place] [address], [address] , [employer] 4 13:29:33 Low back pain 220334638 Active 2024 Ketty Curtis NP [address] [place] [address], [address] , [employer] 5 16:37:32 Chest discomfo rt 712728795 Active 2024 ANDREA ALMAZAN NP [address] [place] [address], [address] , [employer] 5 16:36:32 Increase d blood pressure 06670173 Active 2024 ANDREA ALMAZAN NP [address] [place], [address] , [employer] 17:41:24 Problem Notes None recorded. Procedures Surgical History Date Name Laterality Status Provider Name and Address Organization Details Recorded Time 12/29/19 25 Most Recent Mammogram completed Vidhya Whitlock [employer] 01/07/2025 15:52:49 08/10/20 18 tonsillectomy and adenoidectomy completed Not Available [facility] 06/15/2022 22:56:25 08/10/20 18 placement of stent in coronary artery completed HERNÁN ALFARO [employer]. 07/28/2023 16:30:01 08/10/20 18 ligation of bilateral fallopian tubes completed Not Available [facility] 06/15/2022 22:56:26 Imaging Results None recorded. Procedure [...] Updated DateTime 5 162.56 cm 35.1 kg/m2 63572.2 4 g 98 [degF] 94 % 94 % 57 /min 159/73 mm[Hg] 152/83 mm[Hg] Kathy Urbina [employer] 16:39:24 Social History Question Answer Notes LastModified by Organizat ion Details LastModified Time Tobacco Smoking Status Former Smoker Vidhya Abebesha hull [employer] 01/07/2025 15:58:00 Do You Have An Advance Directive? No [email or web address] Information not available 07/28/2023 Is Your Home Air Conditioned? Yes [email or web address] Information not available 07/28/2023 Do You Wear A Helmet When Biking? No Information not available 10/25/2024 Are You Blind Or Do You Have Difficulty Seeing? No Information not available 01/04/2023 What Is Your Level Of Caffeine Consumption? Moderate [email or web address] Information not available 07/28/2023 Are You A Caregiver? No [email or web address] Information not available 07/28/2023 In The 14 Days Before Symptom Onset, Have You Had Close Contact With A Laboratory-confir med COVID-19 While That Case Was Ill? No [email or web address] Information not available 10/25/2024 In The 14 Days Before Symptom Onset, Have You Had Close Contact With A Person Who Is Under Investigation For COVID-19 While That Person Was Ill? No [email or web address] Information not available 10/25/2024 Have You Been To An Area Known To Be High Risk For COVID-19? No [email or web address] Information not available 07/28/2023 Are You Deaf Or Do You Have Serious Difficulty Hearing? No Information not available 01/04/2023 What Type Of Diet Are You Following? REGULAR [email or web address] Information not available 10/25/2024 Who Is Your Employer? [employer] Information not available 07/28/2023 Have There Been Any Changes To Your Family Or Social Situation? No [email or web address] Information no t available 07/28/2023 When Did You Quit Smoking? 1-5yearssinc elastcigaret te 09/2025 Information not available 01/07/2025 Are There Any Guns Present In Your Home? No Information not available 07/28/2023 What Was The Date Of Your Most Recent Tobacco Screening? 04/26/2025 [email or web address] Information not available 04/26/2025 What Is Your Current Pack Years? 30ormorepack years Information not available 01/07/2025 Do You Have Any Pets? Yes [email or web address] Information not available 07/28/2023 What Is Your Relationship Status? Information not available 07/28/2023 Do You Use Your Seat Belt Or Car Seat Routinely? Yes Information not available 10/25/2024 Are You Sexually Active? No [email or web address] Information not available 10/25/2024 Do You Have Smoke And Carbon Monoxide Detectors In Your Home? Yes [email or web address] Information not available 07/28/2023 Are You Passively Exposed To Smoke? Yes [email or web address] Information no t available 07/28/2023 Are There Any Smokers In Your House? Yes [email or web address] Information not available 07/28/2023 How Much Tobacco Do You Smoke? 0.5 PPD [email or web address] Information not available 07/28/2023 Do You Participate In Social Media? Yes [email or web address] Information not available 10/25/2024 Do You Use Sunscreen Routinely? No [email or web address] Information not available 07/28/2023 Has Tobacco Cessation Counseling Been Provided? Yes Information not available 11/22/2023 On What Date Was Tobacco Cessation Counseling Provided? 04/26/2025 Information not available 04/26/2025 How Many Years Have You Smoked Tobacco? 41 [email or web address] Information not available 07/28/2023 Have You Recently Traveled Abroad? No [email or web address] Information not available 07/28/2023 Do You Have Difficulty Walking Or Climbing Stairs? No Information not available 01/04/2023 Are You Currently In School? No Information not available 01/04/2023 Do You Have Any Dietary Restrictions? No [email or web address] Information not available 10/25/2024 Sex: Female Functional Status Question Answer Note LastModified by Organizat ion Details LastModified Time Do you use any illicit or recreational drugs? No [email or web address] Information not available 07/28/2023 Do you or have you ever used any other forms of tobacco or nicotine? No [email or web address] Information not available 07/28/2023 What is your level of alcohol consumption? None [email or web address] Information not available 07/28/2023 Are you currently employed? Yes Information not available 01/04/2023 Do you have transportation difficulties? Yes Information not available 01/04/2023 Are you able to walk? YESWOREST Information not available 01/04/2023 Do you have difficulty doing errands alone? No Information not available 01/04/2023 Are you able to care for yourself independently? Yes Information not available 01/04/2023 Do you have difficulty dressing, bathing, grooming, or toileting? No Information not available 01/04/2023 Mental Status Question Answer Note LastModified by Organizat ion Details LastModified Time Do you feel stressed (tense, restless, nervous, or anxious, or unable to sleep at night)? [id number] [email or web address] Information not available 10/25/2024 Do you have difficulty concentrating, remembering or making decisions? No [facility] Information no t available 01/04/2023 Family History Relationship Description Onset Age of this Age Resolved Age Notes LastModified by Organization Details LastModified Time Maternal Grandmother Family history of congestive heart failure [email or web address] Not available 16:27:20 Mother Family history of hyperlipidem ia [email or web address] Not available 16:27:25 Mother Family history of diabetes mellitus type 2 [email or web address] Not available 16:27:29 Medical History Condition Response Hospitalizations N Coronary Artery Disease Y Emergency room visit since last appointm ent. N Hypertension Y High Cholesterol Y Gynecological History Statement/Question Response Date of Last Pap Smear Most Recent Mammogram 12/28/2024 Obstetrics History GPAL:G 0 P 0 0 0 0 Immunizations Vaccine Type Date Status Note Provider Nam e and Address Organization Details Recorded Time Influenza, split virus, trivalent, PF 08/14/2024 completed Vidhya hull [employer] 08/14/2024 14:44:42 COVID-19, mRNA, LNP-S, PF, 30 mcg/0.3 mL dose 05/21/2021 completed HERNÁN ALFARO null, [employer] 07/28/2023 16:20:23 COVID-19, mRNA, LNP-S, PF, 30 mcg/0.3 mL dose 06/11/2021 completed HERNÁNTEODORA ALFARO null, [employer] 07/28/2023 16:20:23 Past Encounters Encounter ID Performer Location Encounter Start Date Encounter Closed Date Diagnosis/Indication Diagnosis SNOMED-CT Code Diagnosis ICD10 Code Diagnosis Note [id number] ANDREA ALMAZAN NP [facility] [address] [place] [address] 04/26/2025 16:17:43 05/01/2025 11:58:20 Chest discomfort [id number] R07.89 ECG with no acute changes Increased blood pressure 11705551 R03.0 Notes that her sodium intake has [...] Holley Member ID Guarantor Name 04/26/2025 1 [facility] (MEDICAID HMO) Lynn Slaughter [id number] Lynn Slaughter Notes Date Note Type Note Provider Name and Address Organization Details Recorded Time 04/26/2025 text/html ROS as noted in the HPI Patient present today for history of chest [...] of breath, diaphoresis. ANDREA ALMAZAN NP [address] [place], [address], [facility] 04/29/2025 08:20:26 OBGyn Episode No OBEpisode recorded.
--- OUTSIDE RECORDS SUMMARY | 2025-05-03 09:07 | XMS_ITS | Clinical Summary ---
Author Organization [facility] Address [address] [place] [address] Phone Care Team Providers Care Electronic Plotting System Operator Name Role Phone Unavailable Primary Care Provider [...] 3 AM EST Addenda Addendum by Franklin Romreo MD on 11/30/2024 1:40 PM EST EXAM: MM MAMMO DIGITAL MARIE SCREEN BILAT EXAM DATE: 11/12/2024 11:53 AM ADDENDUM: Outside images now available from date 08/18/2018. No interval change and no change in recommendation. IMPRESSION: ACR BI-RADS Category 1 - Negative. RECOMMENDATION: 1: Routine screening mammogram in 1 year 2: COMMENTS: Impressions 11/28/2024 1:00 PM EST Negative ([id number]) RECOMMENDATION: Routine Screening Mammogram in 1 Year Bilateral . . COMMENTS: Narrative 11/28/2024 1:00 PM EST EXAM: MM MAMMO DIGITAL MARIE SCREEN BILAT EXAM DATE: 11/12/2024 11:53 AM INDICATION: Z12.31-Encounter for screening mammogram for malignant neoplasm of [id number] COMPARISON STUDIES: Compared with prior studies the most recent being No Qualifying Comparisons Found TISSUE DENSITY: There are scattered areas of fibroglandular density. FINDINGS: No mammographic evidence of malignancy. Procedure Note Frankiln Romero MD - 11/28/2024 EXAM: MM MAMMO DIGITAL MARIE SCREEN BILAT EXAM DATE: 11/12/2024 11:53 AM INDICATION: Z12.31-Encounter for screening mammogram for malignantneoplasm of [id number] COMPARISON STUDIES: Compared with prior studies the most recent being No Qualifying Comparisons Found TISSUE DENSITY: There are scattered areas of fibroglandular density. FINDINGS: No mammographic evidence of malignancy. IMPRESSION: Negative ([id number]) RECOMMENDATION: Routine Screening Mammogram in 1 Year Bilateral . . COMMENTS: us Lou Ly MIME ARTIST IMG MAMMOGRAPHY ORDERABLE S Edited Result - Final from Last 3 Months or Most Recently Relevant to Health Maintenance Insurance [facility] [employer] [place] [address]
--- OUTSIDE RECORDS SUMMARY | 2025-05-03 09:07 | XMS_ITS | Clinical Summary ---
Author Organization [facility] Address [address] [place] [address] Care Team Providers Care Captain Waiter/Waitress Name Role Phone Unavailable Primary Care Provider [...]
--- OUTSIDE RECORDS SUMMARY | 2025-05-03 09:08 | XMS_ITS | Data Portability ---
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 Assessment Encounter Date Assessment Date Assessment LastModified [...] Lab HbA1c (hemoglobin A1c), blood 2024 025 [facility] ([facility]), [address] [place], [address], 08:12:51 vitamin D, 25-hydroxy, total, serum 2024 025 [facility] ([place]), [address] [place], [address], 5 08:12:51 lipid panel, serum 2024 025 [facility]), [facility] [place], [address], 5 08:12:50 HIV 1 + 2, meaningful use set 2024 025 [facility]), [facility] [place], [address], 5 08:12:52 CMP, serum or plasma 2024 025 [facility]), [facility] [place], [address], 5 08:12:49 CBC w/ auto diff 2024 025 [facility]), [facility] [place], [address], 5 08:12:49 TSH + free T4, serum 2024 025 [facility]), [address] [place] [address], [address], 5 08:12:48 surgical pathology study 2023 024 [facility]), [address] [place] [address], [address], 4 13:08:25 Referral None recorded. Procedures biopsy skin shave (PROC) 2023 024 [email or web address] 1 Not available 10:48:07 Surgeries None recorded. Imaging electrocard iogram 2024 025 [email or web address], [place], [address], 5 11:58:20 Medication Orders Depo-Medrol 80 mg/mL suspension for injection 2024 025 [email or web address] 1 Not available 15:57:36 tizanidine 4 mg tablet 2024 025 [facility] [address] [place] [address], [address], 17:01:50 Xylocaine 10 mg/mL (1 %) injection solution 2023 024 [email or web address] [facility], [address] [place] [address], [address], 16:13:58 Patient TargetsNo targets recorded. Patient Instructions Encounter Date Encounter Id Patient Instructions Last Modified By Organization Details Last Modified Time 10/25/2024 [id number] back care and preventing injuries: care instructions Not available 10/25/2024 16:42:25 getting back to normal after low back pain: care instructions Not available 10/25/2024 16:42:25 learning about relief for back pain Not available 10/25/2024 16:42:25 Reason for Referral None Reported. Results Created Date Observation Date Name Description Value Unit Range Abnormal Flag Note LastModifiedBy Organization Detail LastModifiedTime 08/17/2008/21/2024 PATHO LOGY BENRIE rivas Mater ial submi tted: . shoul lisa - RIGHT SHOUL LISA. Modif iers: right Not Available [facility] [address] [facility], [place], [address], 08/21/2024 13:08:25 08/17/2008/21/2024 PATHO LOGY BERNIE Graff t Diagn osis: SKIN BIOPS Y, RIGHT SHOUL LISA: - KERAT IN ONLY. SEE DESCR IPTIO N. TMZ 08/21 0934 Local Not Available [facility] [address] [place], [address], 08/21/2024 13:08:25 08/17/20 24 08/21/2024 PATHO LOGY REPOR T . Commen t Elect enid brady d: . Alvarado bates MD, [place] topat holog ist Not Available [facility] [address] [facility], [place], [address], 08/21/2024 13:08:25 08/17/20 24 08/21/2024 PATHO LOGY REPOR T . Commen t Gross descr iptio n: . RECEI ANKITA IN FORMA SONG LABEL ED WITH THE PATIE NTS NAME AND RIGH T SHOUL LISA IS A 0.7 X 0.4 X 0.2 CM AGGRE GATE OF MULTI PLE IRREG ULAR FRAGM ENTS OF LEONARD BROWN TISSU E. SUBMI TTED ENTIR JAIDEN IN ONE CASSE TTE. MZH/B XS 08/20 1202 Local Not Available [facility] [address] [facility], [place], [address], 08/21/2024 13:08:25 08/17/20 24 08/21/2024 PATHO LOGY REPOR T . Commen t Micro scopi c: . SECTI ONS REVEA L EXCLU SIVEL Y KERAT IN WITHO UT VIABL E EPIDE RMIS OR DERMI S IN THE SAMPL E PRECL UDING A DEFIN ITIVE DIAGN OSIS. Not Available [facility] [address] [facility], [place], [address], 08/21/2024 13:08:25 08/17/20 24 08/21/2024 PATHO MAYTEY BERNIE Graff t Patho logis t provi ded ICD-1 0: D48.5 Not Available [facility] [address] [facility], [place], [address], 08/21/2024 13:08:25 08/17/20 24 08/21/2024 PATHO LOGY BERNIE Rivas . Dajuan t CPT . 7[address]80 1 Not Available [facility] [address] [place], [address], 08/21/2024 13:08:25 01/08/20 25 01/09/2025 TSH+F REE T4 TSH 0.605 uIU/m L 0.450- 4.500 normal Not Available [facility] [address] [place], [address], 01/09/2025 08:12:48 01/08/20 25 01/09/2025 TSH+F REE T4 T4,free(dire ct) 1.15 NG/dL 0.82-1 .77 normal Not Available [facility] [address] [place], [address], 01/09/2025 08:12:48 01/08/2001/09/2025 CBC WITH DIFFE RENTI AL/PL ATELE T WBC 8.4 x10e3 /uL 3.4-10 .8 normal Not Available [facility] [address] [place], [address], 01/09/2025 08:12:49 01/08/20 25 01/09/2025 CBC WITH DIFFE RENTI AL/PL ATELE T RBC 4.02 x10e6 /uL 3.77-5 .28 normal Not Available [facility] [address] [place], [address], 01/09/2025 08:12:49 01/08/20 25 01/09/2025 CBC WITH DIFFE RENTI AL/PL ATELE T hemoglobin 12.7 g/dL 11.1-1 5.9 normal Not Available [facility] [address] [place], [address], 01/09/2025 08:12:49 01/08/20 25 01/09/2025 CBC WITH DIFFE RENTI AL/PL ATELE T hematocrit 38.4 % 34.0-4 6.6 normal Not Available [facility] [address] [place], [address], 01/09/2025 08:12:49 01/08/20 25 01/09/2025 CBC WITH DIFFE RENTI AL/PL ATELE T MCV 96 fL 79-97 normal Not Available [facility] [address] [place], [address], 01/09/2025 08:12:49 01/08/20 25 01/09/2025 CBC WITH DIFFE RENTI AL/PL ATELE T MCH 31.6 pg 26.6-3 3.0 normal Not Available [facility] [address] [place], [address], 01/09/2025 08:12:49 01/08/2001/09/2025 CBC WITH DIFFE RENTI AL/PL ATELE T MCHC 33.1 g/dL 31.5-3 5.7 normal Not Available [facility] [address] [place], [address], 01/09/2025 08:12:49 01/08/20 25 01/09/2025 CBC WITH DIFFE RENTI AL/PL ATELE T RDW 13.0 % 11.7-1 5.4 Not Available [facility] [address] [place], [address], 01/09/2025 08:12:49 01/08/20 25 01/09/2025 CBC WITH DIFFE RENTI AL/PL ATELE T platelets 193 x10e3 /uL 150-45 0 normal Not Available [facility] [address] [facility], [place], [address], 01/09/2025 08:12:49 01/08/20 25 01/09/2025 CBC WITH DIFFE RENTI AL/PL ATELE T neutrophils 55 % not estab. normal Not Available [facility] [address] [facility], [place], [address], 01/09/2025 08:12:49 01/08/20 25 01/09/2025 CBC WITH DIFFE RENTI AL/PL ATELE T lymphs 32 % not estab. normal Not Available [facility] [address] [facility], [place], [address], 01/09/2025 08:12:49 01/08/20 25 01/09/2025 CBC WITH DIFFE RENTI AL/PL ATELE T monocytes 11 % not estab. normal Not Available [facility] [address] [facility], [place], [address], 01/09/2025 08:12:49 01/08/20 25 01/09/2025 CBC WITH DIFFE RENTI AL/PL ATELE T eos 1 % not estab. normal Not Available [facility] [address] [facility], [place], [address], 01/09/2025 08:12:49 01/08/20 25 01/09/2025 CBC WITH DIFFE RENTI AL/PL ATELE T basos 1 % not estab. normal Not Available [facility] [address] [facility], [place], [address], 01/09/2025 08:12:49 01/08/20 25 01/09/2025 CBC WITH DIFFE RENTI AL/PL ATELE T immature cells CUT OFF SAWYER Not Available [facility] [address] [place], [address], 01/09/2025 08:12:49 01/08/20 25 01/09/2025 CBC WITH DIFFE RENTI AL/PL ATELE T neutrophils (absolute) 4.6 x10e3 /uL 1.4-7. 0 normal Not Available [facility] [address] [place], [address], 01/09/2025 08:12:49 01/08/20 25 01/09/2025 CBC WITH DIFFE RENTI AL/PL ATELE T lymphs (absolute) 2.7 x10e3 /uL 0.7-3. 1 normal Not Available [facility] [address] [place], [address], 01/09/2025 08:12:49 01/08/20 25 01/09/2025 CBC WITH DIFFE RENTI AL/PL ATELE T monocytes(ab solute) 0.9 x10e3 /uL 0.1-0. 9 normal Not Available [facility] [address] [place], [address], 01/09/2025 08:12:49 01/08/20 25 01/09/2025 CBC WITH DIFFE RENTI AL/PL ATELE T eos (absolute) 0.1 x10e3 /uL 0.0-0. 4 normal Not Available [facility] [address] [place], [address], 01/09/2025 08:12:49 01/08/20 25 01/09/2025 CBC WITH DIFFE RENTI AL/PL ATELE T baso (absolute) 0.1 x10e3 /uL 0.0-0. 2 normal Not Available [facility] [address] [place], [address], 01/09/2025 08:12:49 01/08/20 25 01/09/2025 CBC WITH DIFFE RENTI AL/PL ATELE T immature granulocytes 0 % not estab. Not Available [facility] [address] [facility], [place], [address], 01/09/2025 08:12:49 01/08/20 25 01/09/2025 CBC WITH DIFFE RENTI AL/PL ATELE T immature grans (abs) 0.0 x10e3 /uL 0.0-0. 1 Not Available [facility] [address] [facility], [place], [address], 01/09/2025 08:12:49 01/08/20 25 01/09/2025 CBC WITH DIFFE RENTI AL/PL ATELE T NRBC CUT OFF SAWYER Not Available [facility] [address] [facility], [place], [address], 01/09/2025 08:12:49 01/08/20 25 01/09/2025 CBC WITH DIFFE RENTI AL/PL ATELE T hematology comments: CUT OFF SAWYER Not Available [facility] [address] [place], [address], 01/09/2025 08:12:49 01/08/20 25 01/09/2025 COMP. METAB OLIC PANEL (14) glucose 77 mg/dL 70-99 normal Not Available [facility] [address] [place], [address], 01/09/2025 08:12:49 01/08/20 25 01/09/2025 COMP. METAB OLIC PANEL (14) BUN 15 mg/dL 6-24 normal Not Available [facility] [address] [place], [address], 01/09/2025 08:12:49 01/08/20 25 01/09/2025 COMP. METAB OLIC PANEL (14) creatinine 1.15 mg/dL 0.57-1 .00 above high normal Not Available [facility] [address] [facility] [place], [address], 01/09/2025 08:12:49 01/08/20 25 01/09/2025 COMP. METAB OLIC PANEL (14) eGFR 55 mL/mi n/1.7 3 >59 below low normal Not Available [facility] [address] [facility] [place], [address], 01/09/2025 08:12:49 01/08/20 25 01/09/2025 COMP. METAB OLIC PANEL (14) BUN/creatini ne ratio 13 9-23 normal Not Available [facility] [address] [facility], [place], [address], 01/09/2025 08:12:49 01/08/20 25 01/09/2025 COMP. METAB OLIC PANEL (14) sodium 145 mmol/ L 134-14 4 above high normal Not Available [facility] [address] [facility] [place], [address], 01/09/2025 08:12:49 01/08/20 25 01/09/2025 COMP. METAB OLIC PANEL (14) potassium 4.1 mmol/ L 3.5-5. 2 normal Not Available [facility] [address] [facility] [place], [address], 01/09/2025 08:12:49 01/08/20 25 01/09/2025 COMP. METAB OLIC PANEL (14) chloride 106 mmol/ L 96-106 normal Not Available [facility] [address] [facility] [place], [address], 01/09/2025 08:12:49 01/08/20 25 01/09/2025 COMP. METAB OLIC PANEL (14) carbon dioxide, total 23 mmol/ L 20-29 normal Not Available [facility] [address] [place], [address], 01/09/2025 08:12:49 01/08/20 25 01/09/2025 COMP. METAB OLIC PANEL (14) calcium 9.0 mg/dL 8.7-10 .2 normal Not Available [facility] [address] [place], [address], 01/09/2025 08:12:49 01/08/20 25 01/09/2025 COMP. METAB OLIC PANEL (14) protein, total 6.6 g/dL 6.0-8. 5 normal Not Available [facility] [address] [place], [address], 01/09/2025 08:12:49 01/08/20 25 01/09/2025 COMP. METAB OLIC PANEL (14) albumin 4.2 g/dL 3.8-4. 9 normal Not Available [facility] [address] [place], [address], 01/09/2025 08:12:49 01/08/20 25 01/09/2025 COMP. METAB OLIC PANEL (14) globulin, total 2.4 g/dL 1.5-4. 5 Not Available [facility] [address] [facility] [place], [address], 01/09/2025 08:12:49 01/08/20 25 01/09/2025 COMP. METAB OLIC PANEL (14) bilirubin, total 0.3 mg/dL 0.0-1. 2 normal Not Available [facility] [address] [facility] [place], [address], 01/09/2025 08:12:49 01/08/20 25 01/09/2025 COMP. METAB OLIC PANEL (14) alkaline phosphatase 106 IU/L 44-121 normal Not Available [facility] [address] [place], [address], 01/09/2025 08:12:49 01/08/20 25 01/09/2025 COMP. METAB OLIC PANEL (14) AST (SGOT) 13 IU/L 0-40 normal Not Available [facility] [address] [place], [address], 01/09/2025 08:12:49 01/08/20 25 01/09/2025 COMP. METAB OLIC PANEL (14) ALT (SGPT) 15 IU/L 0-32 normal Not Available [facility] [address] [place], [address], 01/09/2025 08:12:49 01/08/20 25 01/09/2025 LIPID PANEL cholesterol, total 140 mg/dL 100-19 9 normal Not Available [facility] [address] [place], [address], 01/09/2025 08:12:50 01/08/20 25 01/09/2025 LIPID PANEL triglyceride s 99 mg/dL 0-149 normal Not Available [facility] [address] [place], [address], 01/09/2025 08:12:50 01/08/20 25 01/09/2025 LIPID PANEL HDL cholesterol 66 mg/dL >39 normal Not Available [facility] [address] [place], [address], 01/09/2025 08:12:50 01/08/20 25 01/09/2025 LIPID PANEL VLDL cholesterol abraham 18 mg/dL 5-40 Not Available [facility] [address] [place], [address], 01/09/2025 08:12:50 01/08/20 25 01/09/2025 LIPID PANEL LDL chol calc ([facility]) 56 mg/dL 0-99 Not Available [facility] [address] [facility], [place], [address], 01/09/2025 08:12:50 01/08/20 25 01/09/2025 LIPID PANEL LDL calc comment: CUT OFF SAWYER Not Available [facility] [address] [facility], [place], [address], 01/09/2025 08:12:50 01/08/20 25 01/09/2025 HEMOG LOBIN A1C hemoglobin A1C 5.7 % 4.8-5. 6 above high normal Predi abete s: 5.7 - 6.4 Diabe clara: >6.4 Glyce chin contr ol for adult s with diabe clara: <7.0 Not Available [facility] [address] [facility], [place], [address], 01/09/2025 08:12:51 01/08/20 25 01/09/2025 VITAM IN [...] Endoc rine Socie ty went on to furth er defin e vitam in D insuf ficie ncy as a level betwe en 21 and 29 ng/mL (2). 1. IOM (Inst itute of Medic ine). 2010. Dieta ry refer ence intak es for calci um and D. Hema blue [place]: The [facility] Press . 2. Sammi acevedo MF, Adriana díaz [place], Praful off-F ander i RAMIREZ, et al. Evalu ation , treat ment, and preve ntion of vitam in D defic iency : an Endoc rine Socie ty clini abraham pract ice guide line. JCEM. 2011 Artie; 96(7) :1911 -. Not Available [facility] [address] [facility], [place], [address], 01/09/2025 08:12:51 01/08/20 25 01/09/2025 HIV AB/P2 4 AG WITH REFLE X HIV Ab/P24 Ag screen Non Reacti ve non reacti ve HIV-1 /HIV- 2 antib odies and HIV-1 p24 antig en were NOT detec arabella. There is no labor atory evide nce of HIV infec tion. HIV Negat satya Not Available [facility] [address] [facility], [place], [address], 01/09/2025 08:12:52 12/29/19 MAMMO , scree rosanne, digit al, bilat eral No observ ation record ed. [email or web address] [facility] [address], [place], [address], 01/01/2025 17:51:02 12/29/19 25 11/12/2024 MAMMO , scree rosanne, digit al, bilat eral No observ ation record ed. [facility] [address], [place], [address], 01/01/2025 17:45:58 02/29/20 25 09/27/2018 colon oscop y proce dure (PROC ) No observ ation record ed. [email or web address] Not Available 02/28 17:24:35 04/26/20 elect rocar diogr am No observ ation record ed. [email or web address] Not Available 2024 16:53:29 04/29/20 25 04/29/2025 imagi ng/di agnos tic resul t No observ ation record ed. [facility] [address], [place], [address], 04/29/2025 13:39:10 04/30/20 25 04/29/2025 imagi ng/di agnos tic resul t No observ ation record ed. [facility] [address], [place], [address], 04/30/2025 07:34:01 Result Notes None recorded. Problems Name Problem SNOMED Code Status Onset Date Resolution Date Notes Provider Name and Address Organization Details Recorded Time Pelvic and perineal pain 313470941 Completed 201708/24/2018 Problem Code: R10.2; Problem Code Type: ICD-10; Not Available [facility] 22:21:30 Female genital organ symptoms 183819263 Completed 201708/24/2018 Problem Code: 625.9; Problem Code Type: ICD-9; Not Available [facility] 22:21:30 Nicotine dependen ce 95142623 Active 2020 Problem Code: F17.200; Problem Code Type: ICD-10; Not Available [facility] 22:21:29 Hyperlip idemia 53991168 Active 2020 Problem Code: E78.5; Problem Code Type: ICD-10; Not Available [facility] 22:21:30 Otogenic otalgia 38847144 Completed 202003/28/2024 Ketty Curtis, LUIS [address] [place] [address], [phone] , [facility] [employer], [facility]. 4 13:11:08 Hyperten sive disorder 82619157 Active 2020 Problem Code: I10; Problem Code Type: ICD-10; Not Available [facility] 22:21:30 Gastroes ophageal reflux disease without esophagi tis 975010420 Active 2020 Not Available [facility] 22:21:30 Body mass index 25-29 - overweig ht 153186070 Active 2020 Problem Code: Z68.28; Problem Code Type: ICD-10; Not Available [facility] 22:21:30 Myositis 03305070 Completed 202003/28/2024 Problem Code: M60.9; Problem Code Type: ICD-10; Ketty Curtis NP [address] [place] [address], [address] , [employer] 4 13:11:00 Chill 66078533 Completed 202003/28/2024 Problem Code: R68.83; Problem Code Type: ICD-10; Ketty Curtis NP [address] [place] [address], [address] , [employer] 4 13:10:53 Disorder of upper respirat ory system 937053329 Active 2021 Problem Code: J06.9; Problem Code Type: ICD-10; Not Available [facility] 2 22:21:30 Synovial cyst of right knee 69581978378 9104 Active 2022 CIARRA DONAHUE, GRADES 7 [address] [employer] [address] [place] [address], [phone] , [employer] 3 16:46:12 Dysfunct ion of eustachi an tube 40718881 Active 2023 Ketty Curtis NP [address] [place] [address], [address] , [employer] 4 13:29:33 Low back pain 839376991 Active 2024 Ketty Curtis NP [address] [place] [address], [address] , [employer] 5 16:37:32 Chest discomfo rt 161172014 Active 2024 ANDREA ALMAZAN NP [address] [place] [address], [address] , [employer] 5 16:36:32 Increase d blood pressure 19524335 Active 2024 ANDREA ALMAZAN NP [address] [place] [address], [address] , [employer] 5 17:41:24 Problem Notes None recorded. Procedures Surgical History Date Name Laterality Status Provider Name and Address Organization Details Recorded Time 12/29/19 25 Most Recent Mammogram completed Vidhya Whitlock [employer] 01/07/2025 15:52:49 08/10/20 18 tonsillectomy and adenoidectomy completed Not Available [facility] 06/15/2022 22:56:25 08/10/20 18 placement of stent in coronary artery completed HERNÁNYAHIR ALFARO [employer] 07/28/2023 16:30:01 08/10/20 18 ligation of bilateral fallopian tubes completed Not Available [facility] 06/15/2022 22:56:26 Imaging Results None recorded. Procedure [...] Updated DateTime 5 162.56 cm 33.7 kg/m2 66506.5 g 77 /min 93 % 93 % 128/82 mm[Hg] Shoshana Song [facility] [employer] [facility]. 5 16:13:38 Date Recorded Body height Body mass index (BMI) Body weight Heart rate Oxygen saturation Oxygen saturation in Arterial blood by Pulse oximetry Systolic And Diastolic Provider Name and Address Organization Details Last Updated DateTime 5 162.56 cm 34.9 kg/m2 19637.6 5 g 61 /min 97 % 97 % 132/84 mm[Hg] Vidhya Whitlock [employer] 5 15:57:33 Date Recorded Body height Body mass index (BMI) Body weight Body temperature Oxygen saturation Oxygen saturation in Arterial blood by Pulse oximetry Heart rate Systolic And Diastolic Systolic And Diastolic Provider Name and Address Organization Details Last Updated DateTime 5 162.56 cm 35.1 kg/m2 21504.2 4 g 98 [degF] 94 % 94 % 57 /min 159/73 mm[Hg] 152/83 mm[Hg] Kathy Urbina [employer] 5 16:39:24 Date Recorded Body height Body mass index (BMI) Body weight Heart rate Oxygen saturation Oxygen saturation in Arterial blood by Pulse oximetry Systolic And Diastolic Provider Name and Address Organization Details Last Updated DateTime 4 162.56 cm 31.8 kg/m2 84609.5 9 g 68 /min 96 % 96 % 106/67 mm[Hg] Vidhya Whitlock [employer] 4 13:35:27 Date Recorded Body height Body mass index (BMI) Body weight Heart rate Oxygen saturation Oxygen saturation in Arterial blood by Pulse oximetry Systolic And Diastolic Provider Name and Address Organization Details Last Updated DateTime 4 162.56 cm 32 kg/m2 24242.9 3 g 54 /min 92 % 92 % 109/72 mm[Hg] Vidhya Whitlock [employer] 4 09:45:03 Social History Question Answer Notes LastModified by Organizat ion Details LastModified Time Tobacco Smoking Status Former Smoker Vidhya [email or web address] 01/07/2025 15:58:00 Do You Have An Advance Directive? No [email or web address] Information not available 07/28/2023 Is Your Home Air Conditioned? Yes [email or web address] Information not available 07/28/2023 Do You Wear A Helmet When Biking? No Information not available 10/25/2024 Are You Blind Or Do You Have Difficulty Seeing? No Information not available 01/04/2023 What Is Your Level Of Caffeine Consumption? Moderate [email or web address] Information not available 07/28/2023 Are You A Caregiver? No [email or web address] Information not available 07/28/2023 In The 14 Days Before Symptom Onset, Have You Had Close Contact With A Laboratory-confir med COVID-19 While That Case Was Ill? No [email or web address] Information not available 10/25/2024 In The 14 Days Before Symptom Onset, Have You Had Close Contact With A Person Who Is Under Investigation For COVID-19 While That Person Was Ill? No Information not available 10/25/2024 Have You Been To An Area Known To Be High Risk For COVID-19? No [email or web address] Information not available 07/28/2023 Are You Deaf Or Do You Have Serious Difficulty Hearing? No Information not available 01/04/2023 What Type Of Diet Are You Following? REGULAR Information not available 10/25/2024 Who Is Your Employer? [employer] [email or web address] Information not available 07/28/2023 Have There Been Any Changes To Your Family Or Social Situation? No [email or web address] Information no t available 07/28/2023 When Did You Quit Smoking? 1-5yearssinc elastcigaret te 09/2025 Information not available 01/07/2025 Are There Any Guns Present In Your Home? No [email or web address] Information not available 07/28/2023 What Was The Date Of Your Most Recent Tobacco Screening? 04/26/2025 Information not available 04/26/2025 What Is Your Current Pack Years? [email or web address] Information not available 01/07/2025 Do You Have Any Pets? Yes [email or web address] Information not available 07/28/2023 What Is Your Relationship Status? [email or web address] Information not available 07/28/2023 Do You Use Your Seat Belt Or Car Seat Routinely? Yes [email or web address] Information not available 10/25/2024 Are You Sexually Active? No [email or web address] Information not available 10/25/2024 Do You Have Smoke And Carbon Monoxide Detectors In Your Home? Yes [email or web address] Information not available 07/28/2023 Are You Passively Exposed To Smoke? Yes [email or web address] Information no t available 07/28/2023 Are There Any Smokers In Your House? Yes [email or web address] Information not available 07/28/2023 How Much Tobacco Do You Smoke? 0.5 PPD [email or web address] Information not available 07/28/2023 Do You Participate In Social Media? Yes [email or web address] Information not available 10/25/2024 Do You Use Sunscreen Routinely? No [email or web address] Information not available 07/28/2023 Has Tobacco Cessation Counseling Been Provided? Yes Information not available 11/22/2023 On What Date Was Tobacco Cessation Counseling Provided? 04/26/2025 [email or web address] Information not available 04/26/2025 How Many Years Have You Smoked Tobacco? 41 [email or web address] Information not available 07/28/2023 Have You Recently Traveled Abroad? No [email or web address] Information not available 07/28/2023 Do You Have Difficulty Walking Or Climbing Stairs? No Information not available 01/04/2023 Are You Currently In School? No Information not available 01/04/2023 Do You Have Any Dietary Restrictions? No [email or web address] Information not available 10/25/2024 Sex: Female Functional Status Question Answer Note LastModified by Organizat ion Details LastModified Time Do you use any illicit or recreational drugs? No [email or web address] Information not available 07/28/2023 Do you or have you ever used any other forms of tobacco or nicotine? No [email or web address] Information not available 07/28/2023 What is your level of alcohol consumption? None [email or web address] Information not available 07/28/2023 Are you currently [...] anxious, or unable to sleep at night)? [id number] Information not available 10/25/2024 Do you have difficulty concentrating, remembering or making decisions? No Information no t available 01/04/2023 Family History Relationship Description Onset Age of this Age Resolved Age Notes LastModified by Organization Details LastModified Time Maternal Grandmother Family history of congestive heart failure [email or web address] Not available 16:27:20 Mother Family history of hyperlipidem ia [email or web address] Not available 16:27:25 Mother Family history of diabetes mellitus type 2 [email or web address] Not available 16:27:29 Medical History Condition Response Coronary Artery Disease Y Hospitalizations N Emergency room visit since last appointm ent. N High Cholesterol Y Hypertension Y Gynecological History Statement/Question Response Date of Last Pap Smear Most Recent Mammogram 12/28/2024 Obstetrics History GPAL:G 0 P 0 0 0 0 Immunizations Vaccine Type Date Status Note Provider Nam e and Address Organization Details Recorded Time Influenza, split virus, trivalent, PF 08/14/2024 [facility] [employer] 08/14/2024 14:44:42 COVID-19, mRNA, LNP-S, PF, 30 mcg/0.3 mL dose 05/21/2021 completed HERN[facility]N [facility] [employer]. 07/28/2023 16:20:23 COVID-19, mRNA, LNP-S, PF, 30 mcg/0.3 mL dose 06/11/2021 completed [facility] [employer]. 07/28/2023 16:20:23 Past Encounters Encounter ID Performer Location Encounter Start Date Encounter Closed Date Diagnosis/Indication Diagnosis SNOMED-CT Code Diagnosis ICD10 Code Diagnosis Note [id number] Nicol Gates [address] [address] 07/20/2022 09:16:09 07/20/2022 09:41:18 Gastroenteritis 11865257 K52.9 clear liquid diet, advance as tolerated, increase fluids, rest. report symptoms of dehydratio n ie. weakness, tachycardi a, palpitatio ns, dizzy [id number] Lou Ly [place] [address] 0 09/23/2022 08:18:33 09/23/2022 08:57:50 Nasal congestion 89171981 R09.81 Acute sinusitis 10667298 J01.90 Body mass index 25-29 - overweight 279221183 Z68.27 [id number] Lou Ly [place] [address] 0 12/21/2022 14:33:08 12/21/2022 15:15:51 Muscle pain 27055294 M79.10 Fatigue 27453397 R53.83 Body mass index 25-29 - overweight 816284708 Z68.27 [id number] Lou Ly [place] [address] 0 01/04/2023 10:33:23 01/04/2023 11:27:12 Neck pain 07047569 M54.2 Pain of ri ght shoulder blade 813800763 M25.511 Thoracic back pain 67601 8004 M54.6 Body mass index 25-29 - overweight 661497905 Z68.27 [id number] CIARRA DONAHUE, [facility] [address] 07/28/2023 16:19:07 07/28/2023 17:07:40 Synovial cyst of right knee 8826085469 78663 M71.21 [id number] Lou Ly [place] [address] 0 11/22/2023 09:52:23 11/22/2023 10:43:30 Hyperthyroidism 01625864 E05.90 Hyperlipidemia 63326746 E78.5 Fatigue 95929439 R53.83 Body mass index 25-29 - overweight 921503379 Z68.27 [id number] Ketty Curtis, [employer] [place] [address] 03/28/2024 12:48:19 03/28/2024 13:35:56 Dysfunction of eustachian tube 49994461 H69.93 Body mass index 25-29 - overweight 362482435 Z68.29 [id number] Loutess Ly [place] [address] 0 08/14/2024 13:16:31 08/14/2024 14:46:24 Skin lesion 90990060 L98.9 Active or passive immunization 843169583 Z23 Body mass index 30+ - obesity 115344876 Z68.31 [id number] Lou Ly [place] [address] 0 08/17/2024 09:13:20 08/17/2024 10:19:34 Skin lesion 45738172 L98.9 Body mass index 30+ - obesity 597363365 Z68.31 [id number] Ketty Curtis, LUIS [place] [address] 0 10/25/2024 15:58:33 10/25/2024 17:08:08 Low back pain 045411260 M54.50 [id number] Lou Ly [place] [address] 0 01/07/2025 15:45:28 01/07/2025 16:32:16 Fatigue 21744451 R53.83 HIV screening 418018154 Z11.4 Hyperlipidemia 56712393 E78.5 Hyperglycemia 47042883 R 73.9 Vitamin D deficiency 347 79891 E55.9 Obesity 230293378 E66.9 Body mass index 30+ - obesity 462321327 Z68.31 [id number] ANDREA ALMAZAN, LUIS [place] [address] 0 04/26/2025 16:17:43 05/01/2025 11:58:20 Chest discomfort 860083969 R07.89 ECG with no acute changes Increased blood pressure 86564888 R03.0 Notes that her sodium intake has been elevated recently, especially today. Will keep a blood pressure log this week end and next week. Will follow up with primary care next week for blood pressure management . Health Concerns Section Related Observation LastModified by Organization Detdeo ls LastModified Time None Recorded Concern Status LastModified by Organization Details LastModified Time None Recorded Advance Directives Directive N: Payers Insurance Date Sequence Insurance Name Policy Number Policy Holley Covered Member ID Holley Member ID Guarantor Name 04/26/2025 1 AETNA [facility] (MEDICAID HMO) Lynn Sukhjinder [id number] Lynn Sukhjinder Notes Date Note Type Note Provider Name and Address Organization Details Recorded Time 08/14/2024 text/html pt here today with c/o a growth to right shoulder. she [...] will do a shave bx. Vidhya hull, [email or web address], [employer]. 08/14/2024 14:44:49 08/17/2024 text/html pt here today for a removal of a skin growth that she is unknown of how long it has been there. pt denies any pain, redness or drainage. on exam, pt has a brown, crusty, raised growth to right shoulder. consent signed, lidocaine administered, shave bx preformed. pt tolerated procedure. educated pt on s/s of infection and to return if she experiences them. Vidhya hull, [email or web address], [employer]. 08/17/2024 10:50:10 10/25/2024 text/html Patient presents for [...] Cannot take NSAIDs d/t blood thinner. Ketty Curtis NP [address] [place], [address], [email or web address] 10/29/2024 10:46:06 01/07/2025 text/html 59 year old female presents with concerns of weight gain. States [...] this time. She was seen last by cards and endo last summer and has f/u with cards in march. Doesnt have endo f/u but plans to make one. Today i recommend routine labs and for her to track caloric intake. she agrees. Lou Ly APRN [address] [place], [address], [email or web address] 01/07/2025 16:54:53 04/26/2025 text/html ROS as noted in the [...] of breath, diaphoresis. ANDREA ALMAZAN NP [address] [place], [address], [email or web address] 04/29/2025 08:20:26 OBGyn Episode No OBEpisode recorded.
--- OUTSIDE RECORDS SUMMARY | 2025-05-03 09:08 | XMS_ITS | Encounter Summary ---
Author Organization [employer] ([place], [place], [place], [place]) Address [address] [place] [address] Care Team Providers Care Information Resources Manager Name Role Phone Feli Kaplan Primary Care Provider Unavailabl e Reason for Referral * Ultrasound (Routine) - Closed Specialty Diagnoses / Procedures Referred By Vanesa t Referred To Contact Diagnoses Thyrotoxicosis without thyroid storm, unspecified thyrotoxicosis type Procedures US thyroid Lou Ly APRN [address] [address] Phone: tel: fax: Referral ID Status Reason Start Date Expiration Date Visits Re quested Visits Authorized [id number] Closed 11/25/2023 05/23/2024 1 1 Encounter Details Date Type Department Care Team (Late st Contact Info) Description 11/25/2023 Outside Orders [facility] Central Scheduling [address] [place] [address] Lou Ly APRN [address] [address] Thyrotoxicosis without thyroid storm, unspecified [...] Date Rohit rded Speak language other than Serbian at home Not on file 11/25/2023 Want [...] type documented in this encounter Care Teams Information Resources Manager Relationship Specialty Start Date End Date Feli Kaplan PCP - General 11/28/23 documented as of this encounter
--- OUTSIDE RECORDS SUMMARY | 2025-05-03 09:08 | XMS_ITS | Clinical Summary ---
Author Organization [facility] Address [address] [place] [address] Care Team Providers Care Straightener And Aligner Name Role Phone Rajan Feli Christina APRN Primary Care Provider + [phone] Allergies No known active allergies Medications pantoprazole [...] 02/26/2016 UKY-Zoster Vaccines (1 of 2) 02/26/2016 [id number] Vaccine (3 - 2023- season) 2024 06/11/2021, [...] Narrative SUNQUEST - 12/10/1993 12:00 AM EST [facility] MR #: [id number] [facility] [place], [place] [address] 1965 (Age: 28) FW Collect Date: 12/08/1993 00:00 Receipt Date: 12/08/1993 00:00 Page 1 DEPARTMENT OF PATHOLOGY AND LABORATORY MEDICINE CYTOPATHOLOGY REPORT Email: [email or web address] * Converted Case * This report may not match the original report format ATTENDING MD/Practitioner: Edna Manzano MD Service: ECONOMIC ANALYSIS DIRECTOR Location: Reported: 12/10/1993 00:00 Collected: 12/08/1993 00:00 [...] results is suggested (please call Microbiology at [phone] for results). CLINICAL INFORMATION: Menstrual History: {Not Provided} Date of Last Menstrual Period: {Not Provided} SPECIMEN DESCRIPTION: A: CERVICAL/VAGINAL SMEAR, PAP ICD: F: {Not Entered} SNOMED CODES: 1; Z5P446 E86446 Z21243 Q57775 In cases where a pathologist has signed out the report, the service has been rendered in part by a resident. The signing pathologist has performed and is responsible for the reported pathologic evaluation. Feli Manzano MD LAB PATHOLOGY ORDERABLES Chastity fan Result SUNQUEST from Last 3 Months or Most Recently Relevant to Health Maintenance Insurance [employer]ETNA [facility] MEDICAID Care Teams Straightener And Aligner Relationship Specialty Start Date End Date Feli Tolentino APRN On license of [facility] [address] [place] [id number] PCP - General 04/26/24
--- OUTSIDE RECORDS SUMMARY | 2025-05-03 09:08 | XMS_ITS | Referral Summary ---
Author Organization [employer] ([place], [place], [place], [place]) Address [address] [place] [address] Care Team Providers Care Certified Hyperbaric Technologist Name Role Phone Feli Kaplan Primary Care [...] Date Rohit rded Speak language other than Belgian at home Not on file 11/25/2023 Want [...] of Treatment Not on file Insurance AETNA [facility] Care Teams Certified Hyperbaric Technologist Relationship Specialty Start Date End Date Feli Kaplan PCP - General 11/28/23
--- OUTSIDE RECORDS SUMMARY | 2025-05-03 09:08 | XMS_ITS | Clinical Summary ---
Author Organization [employer] ([place], [place], [place], [place]) Address [address] [place] [address] Care Team Providers Care Senior Warehouse Clerk Name Role Phone Feli Kaplan Primary Care [...] Date Rohit rded Speak language other than Estonian at home Not on file 11/25/2023 Want [...] Influenza Vaccine (#1) 2025 Insurance Care Teams Senior Warehouse Clerk Relationship Specialty Start Date End Date Feli Kaplan PCP - General 11/28/23
--- NOTE | 2025-05-03 09:30 | CA_ITS ---
APPROVED REPORT EXAM: Comprehensive 2D, Doppler, and color-flow Echocardiogram Admissions Consultant: Angélica Segal RVT Ht: 5 ft 10 in Wt: 218lbs BSA: 2.17 BP: 146/92 mmHg Indications: SHORTNESS OF BREATH,CHEST PAIN 2D Dimensions LA Volume 52.80 mL LA Volume Index 24.33 mL/m2 (M/F) 16-34 M-Mode Dimensions RVDd 2.55 cm (0.9-2.6) LA Diam 3.57 cm (1.9-4.0) LVDd 4.78 cm (3.5-5.7) LVDs 3.16 cm (3.5-5.7) IVSd 1.11 cm (0.6-1.1) PWd 0.64 cm (0.6-1.1) EF (Teich) 62.70% FS 33.90% EDV (Teich) 106.50 mL TAPSE 2.50 (<1.7) ESV (Teich) 39.70 mL LV Diastology E Decel Time 207 (160-240 msec) E/A Ratio 1.1 Aortic Valve ROWAN Index 1.01 cm2/m2 AoV Peak Jeffrey. 141.0 (50-130 cm/s) AO Peak GR. 8.00 mmHg AO Mean GR. 4.40 (<5 mmHg) AO VTI 34.1 (18-25 cm) ROWAN (VTI) 2.24 (2.5-4.5 cm2) Mitral Valve MV E Max Jeffrey. 80.0 (40-130 cm/s) MV A Velocity 74.0 (40-130 cm/s) E/A Ratio 1.08 MV PHT 61.0 ms Pulmonary Valve PV Peak Velocity 103.0 (50-150 cm/s) Tricuspid Valve TR P. Velocity 248.00 cm/s RAP Estimate 10.00 mmHg RVSP 34.60 mmHg Left Ventricle The left ventricle is normal size. The left ventricular systolic function is normal. The left ventricular ejection fraction is within the normal range. There is normal left ventricular wall thickness. There is normal LV segmental wall motion. The left ventricular diastolic function is normal. LVEF is 55%. Right Ventricle Right ventricle is mildly dilated. The right ventricular systolic function is normal. Atria Left atrium is mildly dilated. Right atrium is mildly dilated. There is no Doppler evidence of interatrial shunt. Aortic Valve The aortic valve is mildly thickened. There is no aortic valvular stenosis. No aortic regurgitation is present. Mitral Valve The mitral valve is normal in structure. No evidence of mitral valve stenosis. Trace mitral regurgitation. Tricuspid Valve Tricuspid valve is grossly normal in structure and function. Mild tricuspid regurgitation. RVSP is 25-30 mmHg. Pulmonic Valve The pulmonary valve is normal in structure. Trace pulmonic regurgitation. Great Vessels The aortic root is normal in size. IVC is normal in size and collapses >50% with inspiration. Pericardium There is no pericardial effusion. Other Information Study Quality: Fair Conclusion Normal biventricular systolic function. Mild RV dilation. Mild biatrial dilation. Mild TR. Electronically signed by : Johnna Alexander MD 05/06/2025 19:58:50
== END 2025-05-03 23:59 | disposition home or self-care (01) ==
LOC: RT 09:01
PROVIDERS: PCP Nurse Practitioner; Visit Provider Nurse Practitioner
DX: I07.1 Rheumatic tricuspid insufficiency (principal); I11.9 Hypertensive heart disease without heart failure; I25.10 Atherosclerotic heart disease of native coronary artery without angina pectoris; Z95.5 Presence of coronary angioplasty implant and graft
CPT/HCPCS: 93306

== ENCOUNTER 2025-05-07 08:00 | Day surgery (SDC) | payer OTHER, SELFPAY ==
[2025-05-07] VITALS (12 sets, daily range): BP systolic 95–156; BP diastolic 46–83; PULSE 41–73; RESP 16–20; TEMP 36.9; O2SAT 90–98; BMI 33.6
--- NOTE | 2025-05-07 07:10 | IR_ITS ---
APPROVED REPORT Patient Location: Outpatient PROCEDURES Left heart catheterization Left ventriculogram Selective coronary angiogram INDICATION Known coronary artery disease, Abnormal Myoview Informed consent was obtained prior to the procedure. COMPLICATIONS NONE Estimated Blood Loss: LESS THAN 10 ML TECHNIQUE One percent lidocaine used to anesthetize the right anterior aspect of the wrist. The right radial artery was accessed via the Seldinger technique. A 6 Amharic sheath was placed in the right radial artery. 2.5 mg of Verapamil, 800 mcg of nitroglycerin, 1mg Lidocaine and 5000 U Heparin were given through the arterial sheath. The JL3 catheter was also used to perform left heart catheterization, left ventriculogram and selective coronary angiogram. At the end of the procedure the sheath was removed good hemostasis was achieved using Traclet band, patient was transferred to the postop holding area in stable condition. ANGIOGRAPHIC RESULTS The left main artery Normal The left anterior descending artery Has stents in the proximal to mid segment. Proximally the LAD is widely patent with minimal in-stent restenosis while the midportion of the LAD stents has 40% concentric in-stent restenosis The circumflex artery Is dominant and has stents in the proximal segment which are widely patent with minimal in-stent restenosis. Large first obtuse marginal artery has 30% stenosis The right coronary artery Is nondominant and has stents in the proximal and mid segment. The midportion has moderate concentric 40 to 50% in-stent restenosis. The vessel appears to be 2.5 to 2.75 mm in diameter The RIVERA ventriculogram reveals Normal 60% The left ventricular end-diastolic pressure Elevated at 25 mmHg IMPRESSION Patent coronary arteries as described above Elevated LVEDP which is likely contributing to patient's angina Normal ejection fraction PLAN 1. Coronary disease being managed medically 2. Decrease LVEDP using diuretics weight loss exercise which should significantly improve patient's angina 3. Aggressive risk factor modification Electronically signed by : Adarsh Ventura MD 05/07/2025 12:41:23
[2025-05-07] MEDS: HEPARIN 1,000 UNITS/500ML NS (CATH LAB) 3000 UNIT IV (10:06)
[2025-05-07] MEDS: 0.9 % SODIUM CHLORIDE 500 ML 25 ML IV (10:06)
[2025-05-07] MEDS: LIDOCAINE 1% 10ML MDV 10 ML IJ (10:06)
[2025-05-07] MEDS: VERAPAMIL 2.5MG/ML 2ML VIAL 2.5 MG IV (10:07)
[2025-05-07] MEDS: HEPARIN 1,000 UNITS/ML 10ML VIAL (CATH LAB) 5000 UNIT IV (10:07)
[2025-05-07] MEDS: NITROGLYCERIN 800MCG/8ML SYR (CATH LAB) 800 MCG IA (10:07)
[2025-05-07] MEDS: MIDAZOLAM HCL 1MG/ML 5ML VIAL 1 MG IV (10:33)
[2025-05-07] MEDS: FENTANYL 100MCG/2ML VIAL 50 MCG IV (10:33)
[2025-05-07] MEDS: IOPAMIDOL-370 (76%);100ML BOTTLE 50 ML IV (10:58)
== END 2025-05-07 13:18 | disposition home or self-care (01) ==
PROVIDERS: PCP Nurse Practitioner; Visit Provider Internal Medicine
PROC: 4A023N7 Measurement of Cardiac Sampling and Pressure, Left Heart, Percutaneous Approach (ICD-10-PCS; CPT 93452; principal; 2025-05-07 08:30)
DX: I25.10 Atherosclerotic heart disease of native coronary artery without angina pectoris (principal); R00.1 Bradycardia, unspecified; I11.9 Hypertensive heart disease without heart failure; E78.2 Mixed hyperlipidemia; F17.290 Nicotine dependence, other tobacco product, uncomplicated; Z95.5 Presence of coronary angioplasty implant and graft; Z79.82 Long term (current) use of aspirin; Z79.899 Other long term (current) drug therapy
CPT/HCPCS: 93458; 99152; C1725; C1769; J1200; J1644; J2003; J3010; J7040; Q9967